=== PATIENT | male | born 1945 | race Caucasian/White ===

== ENCOUNTER 2019-07-28 06:40 | Day surgery (SDC) | payer OTHER ==
[2019-07-28] MEDS ORDERED: Sodium Chloride 0.9% 1,000 ML IV SCH (08:00)
[2019-07-28] MEDS ORDERED: fentaNYL 100 MCG/2 ML SDV ONE (08:09)
[2019-07-28] MEDS ORDERED: Midazolam 1 MG/ML 2 ML SDV ONE (08:10)
[2019-07-28] MEDS ORDERED: Propofol 200 MG/20 ML SDV ONE (08:21)
--- NOTE | 2019-07-28 10:11 | PN ---
DATE OF SERVICE: 07/28/2019 The patient was discussed the fact of his poor colon prep. He was recommended to have a repeat colonoscopy. We discussed risks, benefits, alternatives, and limitations of this. The idea is that the patient is not well cleaned out and would not have a repeat colonoscopy. He has declined this. We did again discuss the fact that we may miss colorectal cancer by not repeating the colonoscopy. The patient understands these risks and wishes to not have a repeat nor a barium enema. Robbie Fraser MD /[id number]
--- NOTE | 2019-07-31 11:45 | OR ---
DATE OF PROCEDURE: 07/28/2019 SURGEON: Robbie Fraser MD PROCEDURE: Colonoscopy. FINDINGS: 1. Very poor colon prep. 2. Ascending colon polyp, approximately 5 mm, completely removed using hot snare wire. 3. Ascending colon polyp #2, approximately 1 cm, completely removed using hot snare wire. COMPLICATIONS: None. SORT LINE WORKER: None. ANESTHESIA: MAC. RISKS: Risks, benefits, alternatives, and limitations including, but not limited to infection, bleeding, and perforation were explained to the patient, who wished to proceed. PREOPERATIVE DIAGNOSIS: Family history of colorectal cancer. POSTOPERATIVE DIAGNOSIS: Family history of colorectal cancer. PROCEDURE IN DETAIL: The patient was placed in left lateral decubitus position. Digital rectal exam was performed without abnormality. Scope was introduced and advanced atraumatically to the ileocecal valve. Scope was brought back through the ascending, transverse, descending colon, and retroflexed. The aforementioned polyps were identified and completely removed. No evidence of old or new blood. The colon prep itself would be described as very poor colon prep with large amount of retained solid and liquid stool, approximately 90% of the luminal surface could be seen, possibly less. No abnormalities on retroflexion. The patient tolerated the procedure well. Robbie Fraser MD /[id number]
== END 2019-07-28 10:08 | disposition home or self-care (01) ==
LOC: JP.SDS 06:40
PROVIDERS: ATTEND Surgery
DX: Z12.11 Encounter for screening for malignant neoplasm of colon (principal); D12.2 Benign neoplasm of ascending colon; E78.5 Hyperlipidemia, unspecified; I10 Essential (primary) hypertension; K21.9 Gastro-esophageal reflux disease without esophagitis; I25.10 Atherosclerotic heart disease of native coronary artery without angina pectoris; E11.9 Type 2 diabetes mellitus without complications; Z80.0 Family history of malignant neoplasm of digestive organs; Z88.5 Allergy status to narcotic agent
CPT/HCPCS: 45385; J2250; J2704; J3010; J7030; 88305

== ENCOUNTER 2020-01-16 16:54 | Emergency (ER) | payer OTHER ==
--- NOTE | 2020-01-16 18:59 | EDM.PDOC ---
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 He feels too unsteady to do things without his walker, this morning he was arranging a picture on the wall and lost his balance and fell over hitting his left shoulder and felt too weak to get up. His then called his doctor who told him to bring him to the emergency room. She was also concerned that she took his vitals this morning and his pulse was only 46, later in the afternoon it was 106. His blood pressure has been good, he has not been febrile. He has some slight increase in peripheral edema and shortness of breath but he is not in distress. No chest pain. Onset: Gradual Duration: Day(s): Location: Reports: Generalized (Symptoms for 5 days) Worsens with: Reports: Other (Activity), Movement Associated Symptoms: Reports: Malaise, Shortness of Breath, Weakness. Denies: Confusion, Chest Pain, Cough Left Shoulder Pain Score (Numeric/FACES): 5 - Related Data Allergies Allergy/AdvReac Type Severity Reaction Status Date / Time morphine Allergy Other Verified 01/16/20 17:54 Home Meds: Home Meds Apixaban [Eliquis] 5 mg PO BID 07/25/19 [History] Calcium Citrate/Vitamin D3 [Calcium Citrate - Vit D Caplet] 2 each PO DAILY 07/25/19 [History] Cetirizine [ZyrTEC] 10 mg PO DAILY 07/25/19 [History] Chlorthalidone 12.5 mg PO DAILY 07/25/19 [History] Cholecalciferol (Vitamin D3) [Vitamin D3] 2,000 unit PO DAILY 07/25/19 [History] Cyclobenzaprine HCl 10 mg PO BEDTIME 07/25/19 [History] Fluticasone Propionate [Flovent HFA] 1 spray INH DAILY PRN 07/25/19 [History] Furosemide [Lasix] 20 mg PO DAILY 07/25/19 [History] Gabapentin [Neurontin] 300 mg PO TID 07/25/19 [History] Insulin NPH/Insulin Reg,Human [Novolin 70-30] 40 units SQ QAM 07/25/19 [History] Insulin NPH/Insulin Reg,Human [Novolin 70-30] 74 units SQ QPM 07/25/19 [History] Latanoprost/Pf [Latanoprost 0.005% Eye Drop] 1 drop EYEBOTH DAILY 07/25/19 [History] Losartan [Cozaar] 100 mg PO DAILY 07/25/19 [History] Magnesium Oxide 420 mg PO BID 07/25/19 [History] Metoprolol Succinate [Toprol XL 50mg] 75 mg PO DAILY 07/25/19 [History] Nitroglycerin 0.4 mg SL ASDIRECTED PRN 07/25/19 [History] Omeprazole 40 mg PO DAILY 07/25/19 [History] Pseudoephedrine HCl 60 mg PO BID 07/25/19 [History] Sulfamethoxazole/Trimethoprim [Sulfamethoxazole-Tmp Ss Tablet] 1 each PO BID 07/25/19 [History] Triamcinolone Acetonide [Triamcinolone Acetonide 0.1% Crm] 1 applic TOP BID PRN 07/25/19 [History] amLODIPine Besylate [Amlodipine Besylate] 10 mg PO DAILY 07/25/19 [History] atorvaSTATin [Lipitor] 40 mg PO DAILY 07/25/19 [History] metFORMIN HCl [Fortamet] 1,000 mg PO BID 07/25/19 [History] terbinafine HCL [Athlete's Foot] 1 applic TOP BID PRN 07/25/19 [History] Acetaminophen [Tylenol Arthritis] 650 mg PO ASDIRECTED PRN 07/28/19 [History] Aspirin [Halfprin] 81 mg PO DAILY 07/28/19 [History] Fish Oil/Dorset-3 Fatty Acids [Fish Oil 1,000 MG] 2 each PO DAILY 07/28/19 [History] Multivitamin [Multi-Day Vitamins] 1 each PO DAILY 07/28/19 [History] Vitamin E 400 unit PO DAILY 07/28/19 [History] Past Medical History HEENT History: Reports: Sinusitis Cardiovascular History: Reports: High Cholesterol, Hypertension, [place] Gastrointestinal History: Reports: Colon Polyp Genitourinary History: Reports: Prostate Disorder Neurological History: Reports: Neuropathy, Diabetic Endocrine/Metabolic History: Reports: Diabetes, Type II - Infectious Disease History Infectious Disease History: Reports: Chicken Pox, Mumps - Past Surgical History HEENT Surgical History: Reports: Cataract Surgery Cardiovascular Surgical History: Reports: Coronary Artery Bypass GI Surgical History: Reports: Colonoscopy, Hernia Repair/Other Male Surgical History: Reports: Vasectomy Musculoskeletal Surgical History: Reports: Hip Replacement, Other (See Below) Other Musculoskeletal Surgeries/Procedures:: femur fracture bunionleft foot Social & Family History - Tobacco Use Smoking Status *Q: Never Smoker - Caffeine Use Caffeine Use: Reports: Soda - Recreational Drug Use Recreational Drug Use: No ED ROS GENERAL - Review of Systems Review Of Systems: See Below Constitutional: Reports: Malaise, Weakness. Denies: Fever, Chills HEENT: Denies: Vision Change Respiratory: Reports: Shortness of Breath (Especially with activity), Cough (Mild, intermittent). Denies: Hemoptysis Cardiovascular: Reports: Dyspnea on Exertion. Denies: Chest Pain, Palpitations Endocrine: Reports: Fatigue GI/Abdominal: Denies: Nausea, Vomiting : Reports: No Symptoms (3) Skin: Reports: Diaphoresis (Intermittent) Neurological: Reports: Dizziness, Numbness (Peripheral neuropathy is stable), Weakness. Denies: Headache Psychiatric: Reports: No Symptoms ED EXAM, GENERAL - Physical Exam Exam: See Below Exam Limited By: No Limitations General Appearance: Alert, No Apparent Distress Eye Exam: Bilateral Eye: Normal Inspection Head: Atraumatic Neck: Supple, Non-Tender Respiratory/Chest: No Respiratory Distress, Decreased Breath Sounds, Rales (Basilar rales bilaterally) Cardiovascular: No Murmur, Bradycardia, Irregularly Irregular GI/Abdominal: Soft, Non-Tender Extremities: Other (Significant pitting edema of the lower extremities, symmetric) Neurological: Alert, Oriented Psychiatric: Normal Affect, Normal Mood Skin Exam: Warm, Dry EKG INTERPRETATION Rhythm: A-Fib Rate (Beats/Min): 46 EKG Interpretation Comments: Patient has atrial fibrillation with slow ventricular response and frequent PVCs. Course - Vital Signs Last Recorded V/S: Last Vital Signs Temp 96.8 F L 01/16/20 18:04 Pulse 63 01/16/20 18:04 Resp 19 01/16/20 18:04 BP 153/72 H 01/16/20 18:04 Pulse Ox 96 01/16/20 18:04 - Orders/Labs/Meds Orders: Active Orders 24 hr Category Date Time Status Chest 1V Frontal [CR] Stat Exams 01/16/20 18:29 Taken EKG 12 Lead [EK] Routine Ther 01/16/20 18:30 Ordered Labs: Laboratory Tests 01/16/20 01/16/20 Range/Units 18:43 18:43 WBC 9.1 (4.5-11.0) K/uL RBC 4.54 (4.30-5.90) M/uL Hgb 11.8 L (12.0-15.0) g/dL Hct 37.7 L (40.0-54.0) % MCV 83 (80-98) fL MCH 26 L (27-31) pg MCHC 31 L (32-36) % Plt Count 293 (150-400) K/uL Neut % (Auto) 83 H (36-66) % Lymph % (Auto) 7 L (24-44) % Twiggs % (Auto) 9 H (2-6) % Eos % (Auto) 1 L (2-4) % Baso % (Auto) 0 (0-1) % Sodium 122 L (140-148) mmol/L Potassium 5.6 H (3.6-5.2) mmol/L Chloride 88 L (100-108) mmol/L Carbon Dioxide 26 (21-32) mmol/L Anion Gap 13.6 (5.0-14.0) mmol/L BUN 23 H (7-18) mg/dL Creatinine 1.4 H (0.8-1.3) mg/dL Est Cr Clr Drug Dosing 50.80 mL/min Estimated GFR (MDRD) 50 L (>60) Glucose 130 H (74-106) mg/dL Calcium 9.1 (8.5-10.1) mg/dL Total Bilirubin 0.6 (0.2-1.0) mg/dL AST 21 (15-37) U/L ALT 20 (12-78) U/L Alkaline Phosphatase 63 (46-116) U/L Troponin I < 0.017 (0.000-0.056) ng/mL Total Protein 6.8 (6.4-8.2) g/dL Albumin 3.6 (3.4-5.0) g/dL Globulin 3.2 (2.3-3.5) g/dL Albumin/Globulin Ratio 1.1 L (1.2-2.2) - Re-Assessments/Exams Free Text/Narrative Re-Assessment/Exam: 01/16/20 19:49 Troponin is 0, CBC is normal. Patient remained in atrial fibrillation with bradycardia. Chest x-ray showed cardiomegaly but no significant congestive heart failure. Sodium was low at 124, potassium mildly elevated at 5.6, glucose 130. The MD was contacted and are considering accepting him for cardiology evaluation and possible pacemaker placement. 01/16/20 20:06 Dr. Sharp kindly accepted the patient for transfer. The patient and his are adamant they wanted to go by private car, he has been stable for the last 4 days and think he will do fine. He is going to take his evening dose of Eliquis and magnesium. He will hold the metformin until he arrives in [place] and they can decide if they want to continue him on that today. Copies of his EKG and x- ray were given to the patient as well as his labs. Departure - Departure Time of Disposition: 20:22 Disposition: DC/Tfer to Other 70 Clinical Impression: Atrial fibrillation with slow ventricular response, Weakness - Discharge Information Referrals: Aleida Mark CUSTOMER ADVISOR [Primary Care Provider] - Forms: ED Department Discharge Care Plan Goals: Patient is going to go by private car to the [facility] while he will be admitted for atrial fibrillation with slow ventricular response, weakness and mild congestive heart failure. He likely will need evaluation for a pacemaker. Sepsis Event Note (ED) - Evaluation Sepsis Screening Result: No Definite Risk - Focused Exam Vital Signs: Vital Signs Temp Pulse Resp BP Pulse Ox 01/16/20 18:04 96.8 F L 63 19 153/72 H 96 01/16/20 17:39 96.8 F L 63 19 153/72 H 96 - My Orders Last 24 Hours: My Active Orders 01/16/20 18:29 Chest 1V Frontal [CR] Stat 01/16/20 18:30 EKG 12 Lead [EK] Routine - Assessment/Plan Last 24 Hours: My Active Orders 01/16/20 18:29 Chest 1V Frontal [CR] Stat 01/16/20 18:30 EKG 12 Lead [EK] Routine
--- NOTE | 2020-01-17 09:07 | CR ---
CHEST: Portable 01/16/2020 at 6:46 PM CLINICAL HISTORY:Dyspnea, weakness COMPARISON:None FINDINGS: Heart is moderately enlarged. Patient has had previous sternotomy. Pulmonary vascularity is cephalized. There is some interstitial edema. No effusions are seen. IMPRESSION: Moderate cardiomegaly Changes of CHF Previous sternotomy
== END 2020-01-16 20:25 | disposition other institution (70) ==
LOC: JP.ED 16:54
DX: I48.91 Unspecified atrial fibrillation (principal); R53.1 Weakness; I10 Essential (primary) hypertension; E78.00 Pure hypercholesterolemia, unspecified; I25.2 Old myocardial infarction; E11.40 Type 2 diabetes mellitus with diabetic neuropathy, unspecified; R60.0 Localized edema; Z95.1 Presence of aortocoronary bypass graft; Z88.5 Allergy status to narcotic agent; Z79.01 Long term (current) use of anticoagulants; Z79.4 Long term (current) use of insulin; Z79.899 Other long term (current) drug therapy; Z79.82 Long term (current) use of aspirin
CPT/HCPCS: 36415; 71045; 71045-26; 80053; 84484; 85025; 93005; 99285-25

== ENCOUNTER 2020-03-13 16:05 | Inpatient (IN) | payer OTHER ==
--- NOTE | 2020-03-13 17:20 | EDM.PDOC ---
ED HPI GENERAL MEDICAL PROBLEM - General Chief Complaint: Lower Extremity Injury/Pain Stated Complaint: RASH IN UPPER RT LEG/SWELLING Time Seen by Provider: 03/13/20 17:00 Source of Information: Reports: Patient, Family History Limitations: Reports: No Limitations - History of Present Illness INITIAL COMMENTS - FREE TEXT/NARRATIVE: 74-year-old male who was sent down for evaluation and likely admission for cellulitis of his right leg by the [facility] in [place]. He had a home health visit with the nurse today that trimmed his callus on his right foot, he is following an ulcer on the right toe but she said it is "healing nicely". He wears a compression sleeve on his left lower leg because of persistent edema and weeping blisters. His right leg however has formed painful erythema through the foot and up along the medial aspect of the go most of the groin. He has diffuse swelling around the knee, it is warm and painful to palpation. He does not however have a fever. Onset: Gradual Associated Symptoms: Reports: Malaise. Denies: Fever/Chills, Headaches, Shortness of Breath - Related Data Allergies Allergy/AdvReac Type Severity Reaction Status Date / Time morphine Allergy Other Verified 03/13/20 16:28 nylon AdvReac Itching Verified 03/13/20 16:29 Home Meds: Home Meds Apixaban [Eliquis] 5 mg PO BID 07/25/19 [History] Calcium Citrate/Vitamin D3 [Calcium Citrate - Vit D Caplet] 2 each PO DAILY 07/25/19 [History] Cetirizine [ZyrTEC] 10 mg PO DAILY 07/25/19 [History] Chlorthalidone 12.5 mg PO DAILY 07/25/19 [History] Cholecalciferol (Vitamin D3) [Vitamin D3] 2,000 unit PO DAILY 07/25/19 [History] Cyclobenzaprine HCl 10 mg PO BEDTIME 07/25/19 [History] Fluticasone Propionate [Flovent HFA] 1 spray INH DAILY PRN 07/25/19 [History] Furosemide [Lasix] 60 mg PO DAILY 07/25/19 [History] Gabapentin [Neurontin] 300 mg PO TID 07/25/19 [History] Insulin NPH/Insulin Reg,Human [Novolin 70-30] 5 units SQ ASDIRECTED PRN 07/25/19 [History] Latanoprost/Pf [Latanoprost 0.005% Eye Drop] 1 drop EYEBOTH DAILY 07/25/19 [History] Losartan [Cozaar] 100 mg PO DAILY 07/25/19 [History] Magnesium Oxide 420 mg PO BID 07/25/19 [History] Metoprolol Succinate [Toprol XL 50mg] 75 mg PO DAILY 07/25/19 [History] Nitroglycerin 0.4 mg SL ASDIRECTED PRN 07/25/19 [History] Omeprazole 40 mg PO DAILY 07/25/19 [History] Pseudoephedrine HCl 60 mg PO BID 07/25/19 [History] Triamcinolone Acetonide [Triamcinolone Acetonide 0.1% Crm] 1 applic TOP BID PRN 07/25/19 [History] amLODIPine Besylate [Amlodipine Besylate] 10 mg PO DAILY 07/25/19 [History] atorvaSTATin [Lipitor] 40 mg PO DAILY 07/25/19 [History] metFORMIN HCl [Fortamet] 1,000 mg PO BID 07/25/19 [History] terbinafine HCL [Athlete's Foot] 1 applic TOP BID PRN 07/25/19 [History] Acetaminophen [Tylenol Arthritis] 650 mg PO ASDIRECTED PRN 07/28/19 [History] Aspirin [Halfprin] 81 mg PO DAILY 07/28/19 [History] Fish Oil/[place]-3 Fatty Acids [Fish Oil 1,000 MG] 2 each PO DAILY 07/28/19 [History] Multivitamin [Multi-Day Vitamins] 1 each PO DAILY 07/28/19 [History] Vitamin E 400 unit PO DAILY 07/28/19 [History] Sulfamethoxazole/Trimethoprim [Bactrim 400-80 MG] 1 tab PO ASDIRECTED 03/13/20 [History] Past Medical History HEENT History: Reports: Sinusitis Cardiovascular History: Reports: High Cholesterol, Hypertension, [place] Respiratory History: Reports: Sleep Apnea Other Respiratory History: cpap Gastrointestinal History: Reports: Colon Polyp Genitourinary History: Reports: Prostate Disorder Neurological History: Reports: Neuropathy, Diabetic Psychiatric History: Reports: None Endocrine/Metabolic History: Reports: Diabetes, Type II, Obesity/BMI 30+ Hematologic History: Reports: Anticoagulation Therapy - Infectious Disease History Infectious Disease History: Reports: Mumps - Past Surgical History Head Surgeries/Procedures: Reports: None HEENT Surgical History: Reports: Cataract Surgery Cardiovascular Surgical History: Reports: Coronary Artery Bypass Respiratory Surgical History: Reports: None GI Surgical History: Reports: Colonoscopy, Hernia Repair/Other Male Surgical History: Reports: Vasectomy Endocrine Surgical History: Reports: None Neurological Surgical History: Reports: None Musculoskeletal Surgical History: Reports: Hip Replacement, Other (See Below) Other Musculoskeletal Surgeries/Procedures:: femur fracture bunionleft foot Dermatological Surgical History: Reports: None Social & Family History - Tobacco Use Tobacco Use Status *Q: Former Tobacco User Used Tobacco, but Quit: Yes Month/Year Tobacco Last Used: 1987 Second Hand Smoke Exposure: No - Caffeine Use Caffeine Use: Reports: Soda - Recreational Drug Use Recreational Drug Use: No Review of Systems - Review of Systems Review Of Systems: See Below Constitutional: Denies: Fever Respiratory: Denies: Shortness of Breath Cardiovascular: Denies: Chest Pain GI/Abdominal: Denies: Abdominal Pain Genitourinary: Reports: No Symptoms Musculoskeletal: Reports: Leg Pain (Bilateral, especially the right leg) Skin: Reports: Erythema, Other (Patient takes 10 days of Bactrim every several months for hidradenitis of the arms, he is in the fourth day) Neurological: Denies: Headache Psychiatric: Reports: No Symptoms ED EXAM, GENERAL - Physical Exam Exam: See Below Exam Limited By: No Limitations General Appearance: Alert, No Apparent Distress Eye Exam: Bilateral Eye: Normal Inspection Head: Atraumatic. No: Facial Swelling Neck: Non-Tender Respiratory/Chest: No Respiratory Distress, Lungs Clear Cardiovascular: Irregularly Irregular, Other (Heart sounds are distant, I hear no murmur) GI/Abdominal: Other (Abdomen is obese, nontender to palpation) Extremities: Other (Tense lower extremity edema bilaterally, somewhat worse on the right. He has leathery skin with erythema and tenderness to palpation along the medial aspect of the right thigh, through the knee and medial lower extremity into the foot. It is warm to touch.) Neurological: Alert, Oriented Psychiatric: Normal Affect, Normal Mood Course - Vital Signs Last Recorded V/S: Last Vital Signs Temp 97.1 F 03/14/20 07:16 Pulse 82 03/14/20 07:16 Resp 16 03/14/20 07:16 BP 137/96 H 03/14/20 07:16 Pulse Ox 99 03/14/20 07:16 - Orders/Labs/Meds Orders: Active Orders 24 hr Category Date Time Status VL Duplex Lwr Ext Veins Ltd Rt [US] Stat Exams 03/13/20 17:21 Taken CULTURE BLOOD [BC] Urgent Lab 03/13/20 17:04 Received CULTURE BLOOD [BC] Urgent Lab 03/13/20 17:12 Received Blood Culture x2 Reflex Set [OM.PC] Urgent Oth 03/13/20 16:58 Ordered Medication Orders Acetaminophen (Tylenol) 650 mg PO Q4H PRN PRN Reason: Pain (Mild 1-3)/fever Albuterol (Proventil Neb Soln) 2.5 mg NEB Q4H PRN PRN Reason: Shortness Of Breath/wheezing Apixaban (Eliquis) 5 mg PO BID [facility] Last Admin: 03/13/20 20:55 Dose: 5 mg Documented by: ANDREI Aspirin (Halfprin) 81 mg PO DAILY [facility] Bisacodyl (Dulcolax) 5 mg PO DAILY PRN PRN Reason: Constipation Cetirizine HCl (Zyrtec) 10 mg PO DAILY [facility] Chlorthalidone (Chlorthalidone) 12.5 mg PO DAILY [facility] Cyclobenzaprine HCl (Flexeril) 10 mg PO BEDTIME [facility] Last Admin: 03/13/20 20:55 Dose: 10 mg Documented by: ANDREI Docusate Sodium (Colace) 100 mg PO BID PRN PRN Reason: Constipation Furosemide 40 mg/ Furosemide (20 mg) 60 mg PO DAILY [facility] Gabapentin (Neurontin) 300 mg PO TID [facility] Last Admin: 03/13/20 20:55 Dose: 300 mg Documented by: ANDREI Sodium Chloride (Normal Saline) 1,000 mls @ 75 mls/hr IV ASDIRECTED [facility] Last Admin: 03/14/20 02:37 Dose: 75 mls/hr Documented by: FOSTER Piperacillin Sod/Tazobactam (Sod 3.375 gm/ Sodium Chloride) 50 mls @ 100 mls/hr IV Q6H [facility] Last Admin: 03/14/20 05:23 Dose: 100 mls/hr Documented by: Admin: 03/14/20 00:33 Dose: 100 mls/hr Documented by: CRYSTAL Insulin Human Isoph/Insulin Regular (Humulin 70-30) 5 units SUBCUT ACBREAKFAST PRN PRN Reason: Blood Glucose GREATER THAN 200 Insulin Human Lispro (Humalog) 0 unit SUBCUT QIDACANDBED [facility]; Protocol Last Admin: 03/13/20 21:17 Dose: 1 unit Documented by: ANDREI Cosigned by: МАРИНА Lorazepam (Ativan) 1 mg IV Q6H PRN PRN Reason: Nausea/Vomiting Magnesium Oxide (Magnesium Oxide) 400 mg PO BID [facility] Last Admin: 03/13/20 21:16 Dose: 400 mg Documented by: ANDREI Melatonin (Melatonin) 9 mg PO BEDTIME PRN PRN Reason: Insomnia Last Admin: 03/14/20 00:43 Dose: 9 mg Documented by: CRYSTAL Metoprolol Succinate 50 mg/ (Metoprolol Succinate 25 mg) 75 mg PO DAILY [facility] Nitroglycerin (Nitrostat) 0.4 mg SL ASDIRECTED PRN PRN Reason: Chest Pain Non-Formulary Medication (Acetaminophen [Tylenol Arthritis]) 650 mg PO ASDIRECTED PRN PRN Reason: Pain Non-Formulary Medication (Amlodipine Besylate [Amlodipine Besylate]) 10 mg PO DAILY [facility] Non-Formulary Medication (Atorvastatin [Lipitor]) 40 mg PO DAILY [facility] Non-Formulary Medication (Fluticasone Propionate [Flovent Hfa]) 1 spray INH DAILY PRN PRN Reason: Allergies Non-Formulary Medication (Latanoprost/Pf [Latanoprost 0.005% Eye Drop]) 1 drop EYEBOTH DAILY [facility] Non-Formulary Medication (Losartan [Cozaar]) 100 mg PO DAILY [facility] Non-Formulary Medication (Omeprazole [Omeprazole]) 40 mg PO DAILY [facility] Non-Formulary Medication (Terbinafine Hcl [Athlete's Foot]) 1 applic TOP BID PRN PRN Reason: .infection Ondansetron HCl (Zofran Odt) 4 mg PO Q6H PRN PRN Reason: Nausea able to take PO Oxycodone HCl (Oxycodone) 10 mg PO Q4H PRN PRN Reason: Pain (moderate 4-6) Temazepam (Restoril) 15 mg PO BEDTIME PRN PRN Reason: Sleep Last Admin: 03/13/20 20:55 Dose: 15 mg Documented by: ANDREI Triamcinolone Acetonide (Triamcinolone Acetonide 0.1% Crm) 0 gm TOP BID PRN PRN Reason: Rash Vancomycin HCl (Vancomycin) 1 gm IV .PHARMACY TO DOSE [facility] Labs: Laboratory Tests 03/13/20 03/13/20 Range/Units 17:04 17:04 WBC 7.6 (4.5-11.0) K/uL RBC 4.40 (4.30-5.90) M/uL Hgb 10.8 L (12.0-15.0) g/dL Hct 34.9 L (40.0-54.0) % MCV 79 L (80-98) fL MCH 25 L (27-31) pg MCHC 31 L (32-36) % Plt Count 219 (150-400) K/uL Neut % (Auto) 80 H (36-66) % Lymph % (Auto) 9 L (24-44) % [place] % (Auto) 10 H (2-6) % Eos % (Auto) 1 L (2-4) % Baso % (Auto) 0 (0-1) % Sodium 135 L (140-148) mmol/L Potassium 4.6 (3.6-5.2) mmol/L Chloride 101 (100-108) mmol/L Carbon Dioxide 26 (21-32) mmol/L Anion Gap 12.6 (5.0-14.0) mmol/L BUN 32 H (7-18) mg/dL Creatinine 1.1 (0.8-1.3) mg/dL Est Cr Clr Drug Dosing 64.65 mL/min Estimated GFR (MDRD) > 60 (>60) Glucose 192 H (74-106) mg/dL Calcium 8.5 (8.5-10.1) mg/dL Total Bilirubin 0.3 (0.2-1.0) mg/dL AST 32 (15-37) U/L ALT 53 D (12-78) U/L Alkaline Phosphatase 73 (46-116) U/L C-Reactive Protein 7.19 H (0.0-0.3) mg/dL Total Protein 5.7 L (6.4-8.2) g/dL Albumin 2.7 L (3.4-5.0) g/dL Globulin 3.0 (2.3-3.5) g/dL Albumin/Globulin Ratio 0.9 L (1.2-2.2) Meds: Medications Generic Name Dose Route Start Last Admin Trade Name Freq PRN Reason Stop Dose Admin Acetaminophen 650 mg 03/13/20 20:00 Tylenol PO Q4H PRN Pain (Mild 1-3)/fever Albuterol 2.5 mg 03/13/20 20:00 Proventil Neb Soln NEB Q4H PRN Shortness Of Breath/wheezing Apixaban 5 mg 03/13/20 21:00 03/13/20 20:55 Eliquis PO 5 mg BID [facility] Administration Aspirin 81 mg 03/14/20 09:00 Halfprin PO DAILY [facility] Bisacodyl 5 mg 03/13/20 20:00 Dulcolax PO DAILY PRN Constipation Cetirizine HCl 10 mg 03/14/20 09:00 Zyrtec PO DAILY [facility] Chlorthalidone 12.5 mg 03/14/20 09:00 Chlorthalidone PO DAILY [facility] Cyclobenzaprine HCl 10 mg 03/13/20 21:00 03/13/20 20:55 Flexeril PO 10 mg BEDTIME [facility] Administration Docusate Sodium 100 mg 03/13/20 20:00 Colace PO BID PRN Constipation Furosemide 40 mg/ Furosemide 60 mg 03/14/20 09:00 20 mg PO DAILY [facility] Gabapentin 300 mg 03/13/20 21:00 03/13/20 20:55 Neurontin PO 300 mg TID [facility] Administration Sodium Chloride 1,000 mls @ 75 mls/hr 03/13/20 20:00 03/14/20 02:37 Normal Saline IV 75 mls/hr ASDIRECTED [facility] Administration Piperacillin Sod/Tazobactam 50 mls @ 100 mls/hr 03/14/20 00:10 03/14/20 05:23 Sod 3.375 gm/ Sodium Chloride IV 100 mls/hr Q6H [facility] Administration Insulin Human Isoph/Insulin Regular 5 units 03/14/20 07:30 Humulin 70-30 SUBCUT ACBREAKFAST PRN Blood Glucose GREATER THAN 200 Insulin Human Lispro 0 unit 03/13/20 20:00 03/13/20 21:17 Humalog SUBCUT 1 unit QIDACANDBED [facility] Administration Protocol Lorazepam 1 mg 03/13/20 20:00 Ativan IV Q6H PRN Nausea/Vomiting Magnesium Oxide 400 mg 03/13/20 21:15 03/13/20 21:16 Magnesium Oxide PO 400 mg BID [facility] Administration Melatonin 9 mg 03/13/20 20:00 03/14/20 00:43 Melatonin PO 9 mg BEDTIME PRN Administration Insomnia Metoprolol Succinate 50 mg/ 75 mg 03/14/20 09:00 Metoprolol Succinate 25 mg PO DAILY [facility] Nitroglycerin 0.4 mg 03/13/20 20:00 Nitrostat SL ASDIRECTED PRN Chest Pain Non-Formulary Medication 650 mg 03/13/20 20:00 Acetaminophen [Tylenol Arthritis] PO ASDIRECTED PRN Pain Non-Formulary Medication 10 mg 03/14/20 09:00 Amlodipine Besylate [Amlodipine Besylate] PO DAILY [facility] Non-Formulary Medication 40 mg 03/14/20 09:00 Atorvastatin [Lipitor] PO DAILY [facility] Non-Formulary Medication 1 spray 03/13/20 20:00 Fluticasone Propionate [Flovent Hfa] INH DAILY PRN Allergies Non-Formulary Medication 1 drop 03/14/20 09:00 Latanoprost/Pf [Latanoprost 0.005% Eye Drop] EYEBOTH DAILY [facility] Non-Formulary Medication 100 mg 03/14/20 09:00 Losartan [Cozaar] PO DAILY [facility] Non-Formulary Medication 40 mg 03/14/20 09:00 Omeprazole [Omeprazole] PO DAILY [facility] Non-Formulary Medication 1 applic 03/13/20 20:00 Terbinafine Hcl [Athlete's Foot] TOP BID PRN .infection Ondansetron HCl 4 mg 03/13/20 20:00 Zofran Odt PO Q6H PRN Nausea able to take PO Oxycodone HCl 10 mg 03/13/20 20:00 Oxycodone PO Q4H PRN Pain (moderate 4-6) Temazepam 15 mg 03/13/20 20:00 03/13/20 20:55 Restoril PO 15 mg BEDTIME PRN Administration Sleep Triamcinolone Acetonide 0 gm 03/13/20 20:00 Triamcinolone Acetonide 0.1% Crm TOP BID PRN Rash Vancomycin HCl 1 gm 03/14/20 07:00 Vancomycin IV .PHARMACY TO DOSE [facility] Discontinued Medications Generic Name Dose Route Start Last Admin Trade Name Freq PRN Reason Stop Dose Admin Vancomycin HCl 1 gm/ Sodium 250 mls @ 150 mls/hr 03/13/20 17:20 03/13/20 17:51 Chloride IV 03/13/20 18:59 150 mls/hr ONETIME ONE Administration Piperacillin Sod/Tazobactam 50 mls @ 100 mls/hr 03/13/20 17:30 03/13/20 17:49 Sod 3.375 gm/ Sodium Chloride IV 100 mls/hr ONETIME [facility] Administration Magnesium Oxide 400 mg 03/13/20 21:15 Magnesium Oxide PO BID [facility] Non-Formulary Medication 420 mg 03/13/20 21:00 03/13/20 22:34 Magnesium Oxide [Magnesium Oxide] PO Not Given BID [facility] - Re-Assessments/Exams Free Text/Narrative Re-Assessment/Exam: 03/13/20 17:46 An IV was started, CBC CMP blood cultures and CRP were obtained as well as phone consultation with Dr. Ge of the hospitalist service. After blood cultures were drawn, Zosyn and vancomycin were ordered IV and an ultrasound of the leg ordered to rule out DVT. DVT study was negative, white count was normal. Patient was admitted for significant right leg cellulitis. Departure - Departure Time of Disposition: 18:38 Disposition: Admitted As Inpatient 68 Clinical Impression: Cellulitis of leg, right, Bilateral lower extremity edema Atrial fibrillation Qualifiers: Atrial fibrillation type: longstanding persistent Qualified Code(s): I48.11 - Longstanding persistent atrial fibrillation - Discharge Information Sepsis Event Note (ED) - Evaluation Sepsis Screening Result: No Definite Risk - Focused Exam Vital Signs: Vital Signs Pulse BP Pulse Ox 03/13/20 19:25 53 L 135/77 95 - My Orders Last 24 Hours: My Active Orders 03/13/20 16:58 Blood Culture x2 Reflex Set [OM.PC] Urgent 03/13/20 17:04 CULTURE BLOOD [BC] Urgent 03/13/20 17:12 CULTURE BLOOD [BC] Urgent 03/13/20 17:21 VL Duplex Lwr Ext Veins Ltd Rt [US] Stat - Assessment/Plan Last 24 Hours: My Active Orders 03/13/20 16:58 Blood Culture x2 Reflex Set [OM.PC] Urgent 03/13/20 17:04 CULTURE BLOOD [BC] Urgent 03/13/20 17:12 CULTURE BLOOD [BC] Urgent 03/13/20 17:21 VL Duplex Lwr Ext Veins Ltd Rt [US] Stat
[2020-03-13] MEDS ORDERED: Piperacillin/Tazobactam 3.375 GM in Sodium Chloride 0.9% 50 ML IV SCH (17:30)
[2020-03-13] MEDS ORDERED: Sodium Chloride 0.9% 1,000 ML IV SCH (20:00)
[2020-03-13] MEDS ORDERED: Non-Formulary Medication 1 Each (Acetaminophen [Tylenol Arthritis] 650 MG) PO PRN (20:00)
[2020-03-13] MEDS ORDERED: Nitroglycerin 0.4 MG Tab.SL SL PRN (20:00)
[2020-03-13] MEDS ORDERED: TERBINAFINE HCL TOP PRN (20:00)
[2020-03-13] MEDS ORDERED: Temazepam 15 MG Cap PO PRN (20:00)
[2020-03-13] MEDS ORDERED: Ondansetron 4 MG Tab.DIS PO PRN (20:00)
[2020-03-13] MEDS ORDERED: Triamcinolone Acetonide 0.1% Crm 15 GM Tube TOP PRN (20:00)
[2020-03-13] MEDS ORDERED: oxyCODONE 5 MG Tab PO PRN (20:00)
[2020-03-13] MEDS ORDERED: Bisacodyl 5 MG Tab PO PRN (20:00)
[2020-03-13] MEDS ORDERED: Docusate Sodium 100 MG Cap PO PRN (20:00)
[2020-03-13] MEDS ORDERED: LORazepam 2 MG/ML SDV IV PRN (20:00)
[2020-03-13] MEDS ORDERED: FLUTICASONE PROPIONATE INH PRN (20:00)
[2020-03-13] MEDS: Gabapentin 300 MG Cap PO SCH (20:55)
[2020-03-13] MEDS: Apixaban 5 MG Tab PO SCH (20:55)
[2020-03-13] MEDS: Cyclobenzaprine 10 MG Tab PO SCH (20:55)
[2020-03-13] MEDS ORDERED: Non-Formulary Medication 1 Each (Magnesium Oxide [Magnesium Oxide] 420 MG) PO SCH (21:00)
[2020-03-13] MEDS ORDERED: Magnesium Oxide 400 MG Tab PO SCH (21:15)
[2020-03-13] MEDS: Magnesium Oxide 400 MG Tab PO SCH (21:16)
[2020-03-13] MEDS: Insulin Lispro 100 Unit/ML 3 ML KwikPen SUBCUT SCH (21:17)
--- NOTE | 2020-03-13 22:16 | PCM.HP.2 ---
H&P History of Present Illness - General Date of Service: 03/13/20 Admit Problem/Dx: Admission Diagnosis/Problem Admission Diagnosis/Problem Cellulitis and abscess of leg Source of Information: Patient, Family () History Limitations: Reports: No Limitations - History of Present Illness Initial Comments - Free Text/Narative: chief complaint: leg infection- getting worse 74-year-old male who was sent down for evaluation and likely admission for cellulitis of his right leg by the [facility] in [place]. He had a home health visit with the nurse today that trimmed his callus on his right foot, he is following an ulcer on the right toe but she said it is "healing nicely". He wears a compression sleeve on his left lower leg because of persistent edema and weeping blisters. His right leg however has formed painful erythema through the foot and up along the medial aspect of the go most of the groin. He has diffuse swelling around the knee, it is warm and painful to palpation. He does not however have a fever. Onset: Gradual Associated Symptoms: Reports: Malaise. Denies: Fever/Chills, Headaches, Shortness of Breath Onset of Symptoms: Reports: Gradual Symptom Onset Date: 03/09/20 Duration of Symptoms: Reports: Getting Worse Location: Reports: Lower Extremity, Right Quality: Reports: Ache, Pressure, Throbbing Severity: Severe Improves with: Reports: None Worsens with: Reports: None Associated Symptoms: Reports: Fever/Chills, Weakness - Related Data Allergies/Adverse Reactions: Allergies Allergy/AdvReac Type Severity Reaction Status Date / Time morphine Allergy Other Verified 03/13/20 16:28 nylon AdvReac Itching Verified 03/13/20 16:29 Home Medications: Home Meds Apixaban [Eliquis] 5 mg PO BID 07/25/19 [History] Calcium Citrate/Vitamin D3 [Calcium Citrate - Vit D Caplet] 2 each PO DAILY 07/25/19 [History] Cetirizine [ZyrTEC] 10 mg PO DAILY 07/25/19 [History] Chlorthalidone 12.5 mg PO DAILY 07/25/19 [History] Cholecalciferol (Vitamin D3) [Vitamin D3] 2,000 unit PO DAILY 07/25/19 [History] Cyclobenzaprine HCl 10 mg PO BEDTIME 07/25/19 [History] Fluticasone Propionate [Flovent HFA] 1 spray INH DAILY PRN 07/25/19 [History] Furosemide [Lasix] 60 mg PO DAILY 07/25/19 [History] Gabapentin [Neurontin] 300 mg PO TID 07/25/19 [History] Insulin NPH/Insulin Reg,Human [Novolin 70-30] 5 units SQ ASDIRECTED PRN 07/25/19 [History] Latanoprost/Pf [Latanoprost 0.005% Eye Drop] 1 drop EYEBOTH DAILY 07/25/19 [History] Losartan [Cozaar] 100 mg PO DAILY 07/25/19 [History] Magnesium Oxide 420 mg PO BID 07/25/19 [History] Metoprolol Succinate [Toprol XL 50mg] 75 mg PO DAILY 07/25/19 [History] Nitroglycerin 0.4 mg SL ASDIRECTED PRN 07/25/19 [History] Omeprazole 40 mg PO DAILY 07/25/19 [History] Pseudoephedrine HCl 60 mg PO BID 07/25/19 [History] Triamcinolone Acetonide [Triamcinolone Acetonide 0.1% Crm] 1 applic TOP BID PRN 07/25/19 [History] amLODIPine Besylate [Amlodipine Besylate] 10 mg PO DAILY 07/25/19 [History] atorvaSTATin [Lipitor] 40 mg PO DAILY 07/25/19 [History] metFORMIN HCl [Fortamet] 1,000 mg PO BID 07/25/19 [History] terbinafine HCL [Athlete's Foot] 1 applic TOP BID PRN 07/25/19 [History] Acetaminophen [Tylenol Arthritis] 650 mg PO ASDIRECTED PRN 07/28/19 [History] Aspirin [Halfprin] 81 mg PO DAILY 07/28/19 [History] Fish Oil/[place]-3 Fatty Acids [Fish Oil 1,000 MG] 2 each PO DAILY 07/28/19 [History] Multivitamin [Multi-Day Vitamins] 1 each PO DAILY 07/28/19 [History] Vitamin E 400 unit PO DAILY 07/28/19 [History] Sulfamethoxazole/Trimethoprim [Bactrim 400-80 MG] 1 tab PO ASDIRECTED 03/13/20 [History] Past Medical History HEENT History: Reports: Sinusitis Cardiovascular History: Reports: High Cholesterol, Hypertension, [place] Respiratory History: Reports: Sleep Apnea Other Respiratory History: cpap Gastrointestinal History: Reports: Colon Polyp Genitourinary History: Reports: Prostate Disorder Neurological History: Reports: Neuropathy, Diabetic Psychiatric History: Reports: None Endocrine/Metabolic History: Reports: Diabetes, Type II, Obesity/BMI 30+ Hematologic History: Reports: Anticoagulation Therapy - Infectious Disease History Infectious Disease History: Reports: Mumps - Past Surgical History Head Surgeries/Procedures: Reports: None HEENT Surgical History: Reports: Cataract Surgery Cardiovascular Surgical History: Reports: Coronary Artery Bypass Respiratory Surgical History: Reports: None GI Surgical History: Reports: Colonoscopy, Hernia Repair/Other Male Surgical History: Reports: Vasectomy Endocrine Surgical History: Reports: None Neurological Surgical History: Reports: None Musculoskeletal Surgical History: Reports: Hip Replacement, Other (See Below) Other Musculoskeletal Surgeries/Procedures:: femur fracture bunionleft foot Dermatological Surgical History: Reports: None Social & Family History - Family History Family Medical History: Noncontributory - Tobacco Use Tobacco Use Status *Q: Never Tobacco User Used Tobacco, but Quit: Yes Month/Year Tobacco Last Used: 1987 Second Hand Smoke Exposure: No - Caffeine Use Caffeine Use: Reports: Soda - Recreational Drug Use Recreational Drug Use: No - Living Situation & Occupation Living situation: Reports: Occupation: Disabled (lives with [place] [address] [place] of [place], [place].) H&P Review of Systems - Review of Systems: Review Of Systems: See Below General: Reports: Weakness, Fatigue, Other (right lower leg pain) HEENT: Reports: Rhinitis (chronic sinusitis and allergies), Post Nasal Drip, Sinus Congestion (chronic sinus congestion) Pulmonary: Reports: No Symptoms Cardiovascular: Reports: Edema (bilateral lower leg) Gastrointestinal: Reports: No Symptoms Genitourinary: Reports: No Symptoms Musculoskeletal: Reports: Leg Pain, Joint Swelling (right knee with chronic edema- Mr. Boucher reports "swollen for years") Skin: Reports: Erythema (right lower leg), Wound (left lower leg), Change in Color (right leg- redness, pain and edema) Psychiatric: Reports: No Symptoms Neurological: Reports: No Symptoms Hematologic/Lymphatic: Reports: Other (Eiliquist bid) Immunologic: Reports: Seasonal Allergy Exam - Exam Exam: See Below - Vital Signs Vital Signs: Last Vital Signs Temp 37.0 C 03/13/20 20:20 Pulse 94 03/13/20 20:20 Resp 18 03/13/20 20:20 BP 133/77 03/13/20 20:20 Pulse Ox 94 L 03/13/20 20:20 Weight: 110.903 kg - Exam Quality Assessment: DVT Prophylaxis, Skin Breakdown General: Alert, Oriented, 4 HEENT: PERRLA, Hearing Intact, Mucosa Moist & [place], Nares Patent, Normal Nasal Septum, Posterior Pharynx Clear, Conjunctiva Clear, EOMI, EACs Clear, TMs Clear Neck: Supple, Trachea Midline, 2 Lungs: Clear to Auscultation, Normal Respiratory Effort Cardiovascular: Regular Rate, Regular Rhythm, Normal S1, Normal S2 GI/Abdominal Exam: Normal Bowel Sounds, Soft, Non-Tender, No Organomegaly, No Distention, No Abnormal Bruit, No Mass, Pelvis Stable (Male) Exam: Deferred Rectal (Males) Exam: Deferred Back Exam: Normal Inspection Extremities: Pedal Edema, Slow Capillary Refill, Joint Swelling (right knee with chronic edema ), Leg Pain, Limited Range of Motion (right leg with edema of knee and difficulty with weight bearing.), Increased Warmth (right leg from thigh to foot is red, warm to touch and painful.), Redness (bilateral legs) Peripheral Pulses: 2+: Radial (L), Radial (R) Skin: Warm (right leg from thigh to toes with redness, pain and edema), Wound (left anterior lower leg) Neurological: Normal Speech, Normal Tone Neuro Extensive - Mental Status: Alert, Oriented x3, Normal Mood/Affect Neuro Extensive - Motor, Sensory, Reflexes: Motor/Sensory Deficits Psychiatric: Alert, Normal Affect, Normal Mood - Patient Data Lab Results Last 24 hrs: Laboratory Results - last 24 hr 03/13/20 03/13/20 03/13/20 Range/Units 17:04 17:04 21:00 WBC 7.6 (4.5-11.0) K/uL RBC 4.40 (4.30-5.90) M/uL Hgb 10.8 L (12.0-15.0) g/dL Hct 34.9 L (40.0-54.0) % MCV 79 L (80-98) fL MCH 25 L (27-31) pg MCHC 31 L (32-36) % Plt Count 219 (150-400) K/uL Neut % (Auto) 80 H (36-66) % Lymph % (Auto) 9 L (24-44) % [place] % (Auto) 10 H (2-6) % Eos % (Auto) 1 L (2-4) % Baso % (Auto) 0 (0-1) % Sodium 135 L (140-148) mmol/L Potassium 4.6 (3.6-5.2) mmol/L Chloride 101 (100-108) mmol/L Carbon Dioxide 26 (21-32) mmol/L Anion Gap 12.6 (5.0-14.0) mmol/L BUN 32 H (7-18) mg/dL Creatinine 1.1 (0.8-1.3) mg/dL Est Cr Clr Drug Dosing 64.65 mL/min Estimated GFR (MDRD) > 60 (>60) Glucose 192 H (74-106) mg/dL POC Glucose 182 H (74-106) MG/DL Calcium 8.5 (8.5-10.1) mg/dL Total Bilirubin 0.3 (0.2-1.0) mg/dL AST 32 (15-37) U/L ALT 53 D (12-78) U/L Alkaline Phosphatase 73 (46-116) U/L C-Reactive Protein 7.19 H (0.0-0.3) mg/dL Total Protein 5.7 L (6.4-8.2) g/dL Albumin 2.7 L (3.4-5.0) g/dL Globulin 3.0 (2.3-3.5) g/dL Albumin/Globulin Ratio 0.9 L (1.2-2.2) Result Diagrams: 03/13/20 17:04 03/13/20 17:04 Sepsis Event Note - Evaluation Sepsis Screening Result: No Definite Risk - Focused Exam Vital Signs: Vital Signs Temp Pulse Resp BP Pulse Ox 03/13/20 20:20 37.0 C 94 18 133/77 94 L 03/13/20 19:25 53 L 135/77 95 03/13/20 18:40 73 117/52 L 97 03/13/20 17:41 72 124/78 95 03/13/20 17:02 77 176/93 H 94 L 03/13/20 16:41 36.8 C 56 L 16 151/75 H 96 03/13/20 16:26 36.8 C 56 L 16 151/75 H 96 - Problem List (1) Cellulitis and abscess of leg SNOMED Code(s): 724722410 ICD Code: L03.119 - CELLULITIS OF UNSPECIFIED PART OF LIMB; L02.419 - CUTANEOUS ABSCESS OF LIMB, UNSPECIFIED Status: Acute Priority: High Current Visit: Yes (2) Diabetes mellitus type 2 with complications SNOMED Code(s): 67536908, 908892760 ICD Code: E11.8 - TYPE 2 DIABETES MELLITUS WITH UNSPECIFIED COMPLICATIONS Status: Acute Priority: Medium Current Visit: Yes (3) Atrial fibrillation with slow ventricular response SNOMED Code(s): 42676782, 382348091 ICD Code: I48.91 - UNSPECIFIED ATRIAL FIBRILLATION Status: Acute Priority: Medium Current Visit: No Problem List Initiated/Reviewed/Updated: Yes Orders Last 24hrs: Active Orders 24 hr Category Date Time Status Cardiac Monitoring [RC] .As Directed Care 03/13/20 20:00 Active Diabetes Education [RC] Click to Edit Care 03/13/20 20:00 Active Notify Provider Consults [RC] ASDIRECTED Care 03/13/20 20:00 Active Notify Provider Vital Signs [RC] ASDIRECTED Care 03/13/20 20:00 Active Notify Provider [RC] PRN Care 03/13/20 20:00 Active Oxygen Therapy [RC] PRN Care 03/13/20 20:00 Active Pulse Oximetry [RC] PRN Care 03/13/20 20:00 Active RT Aerosol Therapy [RC] ASDIRECTED Care 03/13/20 20:00 Active Up With Assistance [RC] ASDIRECTED Care 03/13/20 20:00 Active Vital Signs [RC] Q4H Care 03/13/20 20:00 Active Consult to Physician [CONS] Routine Cons 03/13/20 20:00 Ordered PT Evaluation and Treatment [CONS] Routine Cons 03/13/20 20:00 Active Consistent Carbohydrate Diet [DIET] Diet 03/13/20 Dinner Active Chest 1V Frontal [CR] AM Exams 03/14/20 05:11 Ordered VL Duplex Lwr Ext Veins Ltd Rt [US] Stat Exams 03/13/20 17:21 Taken BASIC METABOLIC PANEL,BMP [CHEM] AM Lab 03/14/20 05:11 Ordered CBC WITH AUTO DIFF [HEME] AM Lab 03/14/20 05:11 Ordered CULTURE BLOOD [BC] Urgent Lab 03/13/20 17:04 Received CULTURE BLOOD [BC] Urgent Lab 03/13/20 17:12 Received GLUCOSE POC LAB TO COLLECT JPM [POC] QIDACANDBED Lab 03/14/20 07:30 Ordered GLUCOSE POC LAB TO COLLECT JPM [POC] QIDACANDBED Lab 03/14/20 11:30 Ordered GLUCOSE POC LAB TO COLLECT JPM [POC] QIDACANDBED Lab 03/14/20 16:30 Ordered GLUCOSE POC LAB TO COLLECT JPM [POC] QIDACANDBED Lab 03/14/20 21:00 Ordered GLUCOSE POC LAB TO COLLECT JPM [POC] QIDACANDBED Lab 03/15/20 07:30 Ordered GLUCOSE POC LAB TO COLLECT JPM [POC] QIDACANDBED Lab 03/15/20 11:30 Ordered GLUCOSE POC LAB TO COLLECT JPM [POC] QIDACANDBED Lab 03/15/20 16:30 Ordered GLUCOSE POC LAB TO COLLECT JPM [POC] QIDACANDBED Lab 03/15/20 21:00 Ordered GLUCOSE POC LAB TO COLLECT JPM [POC] QIDACANDBED Lab 03/16/20 07:30 Ordered GLUCOSE POC LAB TO COLLECT JPM [POC] QIDACANDBED Lab 03/16/20 11:30 Ordered GLUCOSE POC LAB TO COLLECT JPM [POC] QIDACANDBED Lab 03/16/20 16:30 Ordered GLUCOSE POC LAB TO COLLECT JPM [POC] QIDACANDBED Lab 03/16/20 21:00 Ordered GLUCOSE POC LAB TO COLLECT JPM [POC] QIDACANDBED Lab 03/17/20 07:30 Ordered GLUCOSE POC LAB TO COLLECT JPM [POC] QIDACANDBED Lab 03/17/20 11:30 Ordered GLUCOSE POC LAB TO COLLECT JPM [POC] QIDACANDBED Lab 03/17/20 16:30 Ordered GLUCOSE POC LAB TO COLLECT JPM [POC] QIDACANDBED Lab 03/17/20 21:00 Ordered GLUCOSE POC LAB TO COLLECT JPM [POC] QIDACANDBED Lab 03/18/20 07:30 Ordered GLUCOSE POC LAB TO COLLECT JPM [POC] QIDACANDBED Lab 03/18/20 11:30 Ordered GLUCOSE POC LAB TO COLLECT JPM [POC] QIDACANDBED Lab 03/18/20 16:30 Ordered GLUCOSE POC LAB TO COLLECT JPM [POC] QIDACANDBED Lab 03/18/20 21:00 Ordered GLUCOSE POC LAB TO COLLECT JPM [POC] QIDACANDBED Lab 03/19/20 07:30 Ordered GLUCOSE POC LAB TO COLLECT JPM [POC] QIDACANDBED Lab 03/19/20 11:30 Ordered GLUCOSE POC LAB TO COLLECT JPM [POC] QIDACANDBED Lab 03/19/20 16:30 Ordered GLUCOSE POC LAB TO COLLECT JPM [POC] QIDACANDBED Lab 03/19/20 21:00 Ordered INR,PT,PROTHROMBIN TIME [COAG] AM Lab 03/14/20 05:11 Ordered Acetaminophen [TylenoL] Med 03/13/20 20:00 Active 650 mg PO Q4H PRN Acetaminophen [Tylenol Arthritis] Med 03/13/20 20:00 Active 650 mg PO ASDIRECTED PRN Albuterol [Proventil Neb Soln] Med 03/13/20 20:00 Active 2.5 mg NEB Q4H PRN Apixaban [Eliquis] Med 03/13/20 21:00 Active 5 mg PO BID Aspirin [Halfprin] Med 03/14/20 09:00 Active 81 mg PO DAILY Cetirizine [ZyrTEC] Med 03/14/20 09:00 Active 10 mg PO DAILY Chlorthalidone Med 03/14/20 09:00 Active 12.5 mg PO DAILY Cyclobenzaprine [Flexeril] Med 03/13/20 21:00 Active 10 mg PO BEDTIME Docusate Sodium [Colace] Med 03/13/20 20:00 Active 100 mg PO BID PRN Fluticasone Propionate [Flovent HFA] Med 03/13/20 20:00 Active 1 spray INH DAILY PRN Furosemide [Lasix] Med 03/14/20 09:00 Active 60 mg PO DAILY Gabapentin [Neurontin] Med 03/13/20 21:00 Active 300 mg PO TID Insulin Lispro [HumaLOG] Med 03/13/20 20:00 Active See Protocol SUBCUT QIDACANDBED Insulin NPH/Insulin Reg,Human [HumuLIN 70-30] Med 03/14/20 07:30 Active 5 units SUBCUT ACBREAKFAST PRN LORazepam [Ativan] Med 03/13/20 20:00 Active 1 mg IV Q6H PRN Latanoprost/Pf [Latanoprost 0.005% Eye Drop] Med 03/14/20 09:00 Active 1 drop EYEBOTH DAILY Losartan [Cozaar] Med 03/14/20 09:00 Active 100 mg PO DAILY Magnesium Oxide Med 03/13/20 21:15 Active 400 mg PO BID Melatonin Med 03/13/20 20:00 Active 9 mg PO BEDTIME PRN Metoprolol Succinate [Toprol XL] Med 03/14/20 09:00 Active 75 mg PO DAILY Nitroglycerin [Nitrostat] Med 03/13/20 20:00 Active 0.4 mg SL ASDIRECTED PRN Omeprazole [Omeprazole] Med 03/14/20 09:00 Active 40 mg PO DAILY Ondansetron [Zofran ODT] Med 03/13/20 20:00 Active 4 mg PO Q6H PRN Piperacillin/Tazobactam [Zosyn] 3.375 gm Med 03/14/20 00:10 Active Sodium Chloride 0.9% [Normal Saline] 50 ml IV Q6H Sodium Chloride 0.9% [Normal Saline] 1,000 ml Med 03/13/20 20:00 Active IV ASDIRECTED Temazepam [Restoril] Med 03/13/20 20:00 Active 15 mg PO BEDTIME PRN Triamcinolone Acetonide [Triamcinolone Acetonide 0.1% Med 03/13/20 20:00 Active Crm] 0 gm TOP BID PRN Vancomycin Med 03/14/20 07:00 Active 1 gm IV .PHARMACY TO DOSE amLODIPine Besylate [Amlodipine Besylate] Med 03/14/20 09:00 Active 10 mg PO DAILY atorvaSTATin [Lipitor] Med 03/14/20 09:00 Active 40 mg PO DAILY bisacodyL [Dulcolax] Med 03/13/20 20:00 Active 5 mg PO DAILY PRN oxyCODONE Med 03/13/20 20:00 Active 10 mg PO Q4H PRN terbinafine HCL [Athlete's Foot] Med 03/13/20 20:00 Active 1 applic TOP BID PRN Blood Culture x2 Reflex Set [OM.PC] Urgent Oth 03/13/20 16:58 Ordered Heat Therapy [OM.PC] Routine Oth 03/13/20 20:00 Ordered Resuscitation Status Routine Resus Stat 03/13/20 19:39 Ordered Medication Orders Acetaminophen (Tylenol) 650 mg PO Q4H PRN PRN Reason: Pain (Mild 1-3)/fever Albuterol (Proventil Neb Soln) 2.5 mg NEB Q4H PRN PRN Reason: Shortness Of Breath/wheezing Apixaban (Eliquis) 5 mg PO BID [facility] Last Admin: 03/13/20 20:55 Dose: 5 mg Documented by: ANDREI Aspirin (Halfprin) 81 mg PO DAILY [facility] Bisacodyl (Dulcolax) 5 mg PO DAILY PRN PRN Reason: Constipation Cetirizine HCl (Zyrtec) 10 mg PO DAILY [facility] Chlorthalidone (Chlorthalidone) 12.5 mg PO DAILY [facility] Cyclobenzaprine HCl (Flexeril) 10 mg PO BEDTIME [facility] Last Admin: 03/13/20 20:55 Dose: 10 mg Documented by: ANDREI Docusate Sodium (Colace) 100 mg PO BID PRN PRN Reason: Constipation Furosemide (Lasix) 60 mg PO DAILY [facility] Gabapentin (Neurontin) 300 mg PO TID [facility] Last Admin: 03/13/20 20:55 Dose: 300 mg Documented by: ANDREI Sodium Chloride (Normal Saline) 1,000 mls @ 75 mls/hr IV ASDIRECTED [facility] Piperacillin Sod/Tazobactam (Sod 3.375 gm/ Sodium Chloride) 50 mls @ 100 mls/hr IV Q6H [facility] Insulin Human Isoph/Insulin Regular (Humulin 70-30) 5 units SUBCUT ACBREAKFAST PRN PRN Reason: Blood Glucose GREATER THAN 200 Insulin Human Lispro (Humalog) 0 unit SUBCUT QIDACANDBED [facility]; Protocol Last Admin: 03/13/20 21:17 Dose: 1 unit Documented by: ANDREI Cosigned by: CANDIEOLALevi Lorazepam (Ativan) 1 mg IV Q6H PRN PRN Reason: Nausea/Vomiting Magnesium Oxide (Magnesium Oxide) 400 mg PO BID [facility] Last Admin: 03/13/20 21:16 Dose: 400 mg Documented by: ANDREI Melatonin (Melatonin) 9 mg PO BEDTIME PRN PRN Reason: Insomnia Metoprolol Succinate (Toprol Xl) 75 mg PO DAILY [facility] Nitroglycerin (Nitrostat) 0.4 mg SL ASDIRECTED PRN PRN Reason: Chest Pain Non-Formulary Medication (Acetaminophen [Tylenol Arthritis]) 650 mg PO ASDIRECTED PRN PRN Reason: Pain Non-Formulary Medication (Amlodipine Besylate [Amlodipine Besylate]) 10 mg PO DAILY MARLYN Non-Formulary Medication (Atorvastatin [Lipitor]) 40 mg PO DAILY [facility] Non-Formulary Medication (Fluticasone Propionate [Flovent Hfa]) 1 spray INH DAILY PRN PRN Reason: Allergies Non-Formulary Medication (Latanoprost/Pf [Latanoprost 0.005% Eye Drop]) 1 drop EYEBOTH DAILY MAR[place]N Non-Formulary Medication (Losartan [Cozaar]) 100 mg PO DAILY [facility]N Non-Formulary Medication (Omeprazole [Omeprazole]) 40 mg PO DAILY [facility] Non-Formulary Medication (Terbinafine Hcl [Athlete's Foot]) 1 applic TOP BID PRN PRN Reason: .infection Ondansetron HCl (Zofran Odt) 4 mg PO Q6H PRN PRN Reason: Nausea able to take PO Oxycodone HCl (Oxycodone) 10 mg PO Q4H PRN PRN Reason: Pain (moderate 4-6) Temazepam (Restoril) 15 mg PO BEDTIME PRN PRN Reason: Sleep Last Admin: 03/13/20 20:55 Dose: 15 mg Documented by: ANDREI Triamcinolone Acetonide (Triamcinolone Acetonide 0.1% Crm) 0 gm TOP BID PRN PRN Reason: Rash Vancomycin HCl (Vancomycin) 1 gm IV .PHARMACY TO DOSE MARLYN Assessment/Plan Comment:: ASSESSMENT AND PLAN Mr. Boucher reports on Wednesday03-09-2020 notice his right leg felt heavier than usual, throbbing pain, felt feverish with chills. [facility], also has a chronic ulcer to left lower leg needed evaluation. He was seen today in [facility] in [place], [place]. It was odin mmended to go to ER for evaluation and possible admission. On exam his right noted to have dm ulcer. The Left left has redness from upper thigh to toes, skin is firm, red, edema and painful to touch. It was recommended he be admitted to hospital for further care and treatment. and Mrs. Boucher agree with plan of care. CELLULITIS- right leg -Zosyn 3.375 g IV every 6 hours -Vancomycin 1 gram IV every 12 hours -blood cultures x 2 -consult to [facility] for evaluation of diabetic ulcer left lower leg -am labs CBC, BMP Atrial fibrillation- chronic. Vital signs otherwise stable. -Eliquis 5 mg po bid -continue outpatient medications Diabetes Type 2 -Insulin 70/30 give 5 units daily for blood glucose over 200 -Insulin short acting low dose sliding scale coverage -Blood glucose testing before meals and at bedtime MAINTENANCE ISSUES -DVT prophylaxis- Eliquist 5mg po bid -GI prophylaxis- Prilosec 40 mg po daily -Jeffers catheter- not indicated -Nutrition- consistent carb diet -Nicotine dependence- non-smoker -Spiritual consult -PT consult for ambulation CODE STATUS-FULL CODE ADMISSION STATUS-patient will be admitted to inpatient status, expect at least a 2 night hospital stay for evaluation and management of problems as outlined above. At the time of this admission I do not reasonably expected evaluation and management of this problem will require more than a 96 hour hospital stay. DISPOSITION-anticipate discharge to home after the hospital stay. PRIMARY CARE PROVIDER-Dennis harry [facility] HOSPITALIST- Dr. Ge - Mortality Measure Prognosis:: Good
[2020-03-14] MEDS: Piperacillin/Tazobactam 3.375 GM in Sodium Chloride 0.9% 50 ML IV SCH ×2 (00:33→05:23)
[2020-03-14] MEDS: Melatonin 3 MG Tab PO PRN ×2 (00:43→21:04)
[2020-03-14] MEDS ORDERED: Vancomycin 1 GM SDV IV SCH (07:00)
[2020-03-14] MEDS ORDERED: Insulin NPH/Insulin Regular,Human 70-30 100 Units/ML 10 ML Vial SUBCUT PRN (07:30)
[2020-03-14] MEDS: Pantoprazole 40 MG Tab.CR PO SCH (07:42)
[2020-03-14] MEDS: Insulin Lispro 100 Unit/ML 3 ML KwikPen SUBCUT SCH ×4 (08:40→20:57)
[2020-03-14] MEDS: atorvaSTATin 20 MG Tab PO SCH (08:45)
[2020-03-14] MEDS: Losartan 50 MG Tab PO SCH (08:46)
[2020-03-14] MEDS: Aspirin 81 MG Tab.EC PO SCH (08:47)
[2020-03-14] MEDS: Magnesium Oxide 400 MG Tab PO SCH ×2 (08:47→20:55)
[2020-03-14] MEDS: Gabapentin 300 MG Cap PO SCH ×3 (08:47→20:54)
[2020-03-14] MEDS: Furosemide 40 MG, Furosemide 20 MG PO SCH ×2 (08:48)
[2020-03-14] MEDS: Cetirizine 10 MG Tab PO SCH (08:48)
[2020-03-14] MEDS: Apixaban 5 MG Tab PO SCH ×2 (08:48→20:54)
[2020-03-14] MEDS: Chlorthalidone 25 MG Tab PO SCH (08:49)
[2020-03-14] MEDS: amLODIPine 5 MG Tab PO SCH (08:50)
[2020-03-14] MEDS: Vancomycin 1.6 GM in Sodium Chloride 0.9% 250 ML IV SCH ×2 (08:51→20:06)
[2020-03-14] MEDS ORDERED: Metoprolol Succinate 50 MG Tab.ER PO SCH (09:00)
[2020-03-14] MEDS ORDERED: Non-Formulary Medication 1 Each (Amlodipine Besylate [Amlodipine Besylate] 10 MG) PO SCH (09:00)
[2020-03-14] MEDS ORDERED: Non-Formulary Medication 1 Each (Omeprazole [Omeprazole] 40 MG) PO SCH (09:00)
[2020-03-14] MEDS ORDERED: Non-Formulary Medication 1 Each (Latanoprost/Pf [Latanoprost 0.005% Eye Drop] 1 DROP) EYEBOTH SCH (09:00)
[2020-03-14] MEDS ORDERED: Non-Formulary Medication 1 Each (Losartan [Cozaar] 100 MG) PO SCH (09:00)
[2020-03-14] MEDS ORDERED: Non-Formulary Medication 1 Each (Atorvastatin [Lipitor] 40 MG) PO SCH (09:00)
[2020-03-14] MEDS ORDERED: Furosemide 40 MG Tab PO SCH (09:00)
--- NOTE | 2020-03-14 09:13 | US ---
VL Duplex Lwr Ext Veins Ltd Rt INDICATION: swelling, pain, redness right leg FINDINGS: Ultrasound examination of the lower extremity using Doppler and compressive technique demonstrates that the common femoral, femoral, and popliteal veins are patent, and negative for thrombus. The calf veins were segmentally visualized and are negative where seen. IMPRESSION: Negative for deep venous thrombosis.
--- NOTE | 2020-03-14 09:28 | CR ---
CHEST: Portable 03/14/2020 at 3:19 AM CLINICAL HISTORY:CHF COMPARISON:01/16/2020 FINDINGS: Heart is enlarged. Patient has had previous sternotomy. Pulmonary vascularity is mildly cephalized. This may be chronic. There is mild generalized interstitial prominence which may also be chronic. There are no effusions. Impression: Moderate cardiomegaly Increase in pulmonary vascularity and interstitial markings. Some of this may be chronic. Some element of cardiac decompensation is not excluded
[2020-03-14] MEDS ORDERED: TERBINAFINE TOP PRN (10:23)
--- NOTE | 2020-03-14 10:32 | PCM.PN ---
- General Info Date of Service: 03/14/20 Admission Dx/Problem (Free Text): 1. RLE Cellulitis 2. Significant peripheral edema Subjective Update: Seen with Rn team this Am. Patient states he is feeling about the same. RN notes erythema and streaking into the proximal medial R thigh. No fever. Pain controlled. Functional Status: Reports: Pain Controlled, Tolerating Diet, Ambulating - Review of Systems General: Reports: No Symptoms HEENT: Reports: No Symptoms Pulmonary: Reports: No Symptoms Cardiovascular: Reports: No Symptoms Musculoskeletal: Reports: No Symptoms - Patient Data Vitals - Most Recent: Last Vital Signs Temp 97.1 F 03/14/20 07:16 Pulse 82 03/14/20 08:49 Resp 16 03/14/20 07:16 BP 137/86 03/14/20 08:50 Pulse Ox 99 03/14/20 07:16 Weight - Most Recent: 244 lb 7.988 oz I&O - Last 24 Hours: Intake & Output 03/13/20 03/14/20 03/14/20 22:59 06:59 14:59 Intake Total 480 400 Output Total 100 350 Balance 380 50 Lab Results Last 24 Hours: Laboratory Results - last 24 hr 03/13/20 03/13/20 03/13/20 Range/Units 17:04 17:04 21:00 WBC 7.6 (4.5-11.0) K/uL RBC 4.40 (4.30-5.90) M/uL Hgb 10.8 L (12.0-15.0) g/dL Hct 34.9 L (40.0-54.0) % MCV 79 L (80-98) fL MCH 25 L (27-31) pg MCHC 31 L (32-36) % Plt Count 219 (150-400) K/uL Neut % (Auto) 80 H (36-66) % Lymph % (Auto) 9 L (24-44) % Pierce % (Auto) 10 H (2-6) % Eos % (Auto) 1 L (2-4) % Baso % (Auto) 0 (0-1) % PT (9.5-12.0) sec INR (0.80-1.20) Sodium 135 L (140-148) mmol/L Potassium 4.6 (3.6-5.2) mmol/L Chloride 101 (100-108) mmol/L Carbon Dioxide 26 (21-32) mmol/L Anion Gap 12.6 (5.0-14.0) mmol/L BUN 32 H (7-18) mg/dL Creatinine 1.1 (0.8-1.3) mg/dL Est Cr Clr Drug Dosing 64.65 mL/min Estimated GFR (MDRD) > 60 (>60) Glucose 192 H (74-106) mg/dL POC Glucose 182 H (74-106) MG/DL Calcium 8.5 (8.5-10.1) mg/dL Total Bilirubin 0.3 (0.2-1.0) mg/dL AST 32 (15-37) U/L ALT 53 D (12-78) U/L Alkaline Phosphatase 73 (46-116) U/L C-Reactive Protein 7.19 H (0.0-0.3) mg/dL Total Protein 5.7 L (6.4-8.2) g/dL Albumin 2.7 L (3.4-5.0) g/dL Globulin 3.0 (2.3-3.5) g/dL Albumin/Globulin Ratio 0.9 L (1.2-2.2) 03/14/20 03/14/20 03/14/20 Range/Units 05:11 05:11 05:11 WBC 7.5 (4.5-11.0) K/uL RBC 4.49 (4.30-5.90) M/uL Hgb 10.7 L (12.0-15.0) g/dL Hct 35.7 L (40.0-54.0) % MCV 80 (80-98) fL MCH 24 L (27-31) pg MCHC 30 L (32-36) % Plt Count 225 (150-400) K/uL Neut % (Auto) 77 H (36-66) % Lymph % (Auto) 10 L (24-44) % Pierce % (Auto) 11 H (2-6) % Eos % (Auto) 2 (2-4) % Baso % (Auto) 0 (0-1) % PT 12.8 H (9.5-12.0) sec INR 1.18 (0.80-1.20) Sodium 135 L (140-148) mmol/L Potassium 4.2 (3.6-5.2) mmol/L Chloride 103 (100-108) mmol/L Carbon Dioxide 23 (21-32) mmol/L Anion Gap 13.2 (5.0-14.0) mmol/L BUN 26 H (7-18) mg/dL Creatinine 1.0 (0.8-1.3) mg/dL Est Cr Clr Drug Dosing 71.12 mL/min Estimated GFR (MDRD) > 60 (>60) Glucose 166 H (74-106) mg/dL POC Glucose (74-106) MG/DL Calcium 8.6 (8.5-10.1) mg/dL Total Bilirubin (0.2-1.0) mg/dL AST (15-37) U/L ALT (12-78) U/L Alkaline Phosphatase (46-116) U/L C-Reactive Protein (0.0-0.3) mg/dL Total Protein (6.4-8.2) g/dL Albumin (3.4-5.0) g/dL Globulin (2.3-3.5) g/dL Albumin/Globulin Ratio (1.2-2.2) 03/14/20 Range/Units 07:30 WBC (4.5-11.0) K/uL RBC (4.30-5.90) M/uL Hgb (12.0-15.0) g/dL Hct (40.0-54.0) % MCV (80-98) fL MCH (27-31) pg MCHC (32-36) % Plt Count (150-400) K/uL Neut % (Auto) (36-66) % Lymph % (Auto) (24-44) % Pierce % (Auto) (2-6) % Eos % (Auto) (2-4) % Baso % (Auto) (0-1) % PT (9.5-12.0) sec INR (0.80-1.20) Sodium (140-148) mmol/L Potassium (3.6-5.2) mmol/L Chloride (100-108) mmol/L Carbon Dioxide (21-32) mmol/L Anion Gap (5.0-14.0) mmol/L BUN (7-18) mg/dL Creatinine (0.8-1.3) mg/dL Est Cr Clr Drug Dosing mL/min Estimated GFR (MDRD) (>60) Glucose (74-106) mg/dL POC Glucose 165 H (74-106) MG/DL Calcium (8.5-10.1) mg/dL Total Bilirubin (0.2-1.0) mg/dL AST (15-37) U/L ALT (12-78) U/L Alkaline Phosphatase (46-116) U/L C-Reactive Protein (0.0-0.3) mg/dL Total Protein (6.4-8.2) g/dL Albumin (3.4-5.0) g/dL Globulin (2.3-3.5) g/dL Albumin/Globulin Ratio (1.2-2.2) Med Orders - Current: Current Medications Acetaminophen (Tylenol) 650 mg PO Q4H PRN PRN Reason: Pain (Mild 1-3)/fever Acetaminophen (Tylenol Extra Strength) 1,000 mg PO TID [facility] Albuterol (Proventil Neb Soln) 2.5 mg NEB Q4H PRN PRN Reason: Shortness Of Breath/wheezing Amlodipine Besylate (Norvasc) 10 mg PO DAILY [facility] Last Admin: 03/14/20 08:50 Dose: 10 mg Documented by: Apixaban (Eliquis) 5 mg PO BID [facility] Last Admin: 03/14/20 08:48 Dose: 5 mg Documented by: Aspirin (Halfprin) 81 mg PO DAILY [facility] Last Admin: 03/14/20 08:47 Dose: 81 mg Documented by: Atorvastatin Calcium (Lipitor) 40 mg PO DAILY [facility] Last Admin: 03/14/20 08:45 Dose: 40 mg Documented by: Bisacodyl (Dulcolax) 5 mg PO DAILY PRN PRN Reason: Constipation Cetirizine HCl (Zyrtec) 10 mg PO DAILY [facility] Last Admin: 03/14/20 08:48 Dose: 10 mg Documented by: Chlorthalidone (Chlorthalidone) 12.5 mg PO DAILY [facility] Last Admin: 03/14/20 08:49 Dose: 12.5 mg Documented by: Cyclobenzaprine HCl (Flexeril) 10 mg PO BEDTIME [facility] Last Admin: 03/13/20 20:55 Dose: 10 mg Documented by: Docusate Sodium (Colace) 100 mg PO BID PRN PRN Reason: Constipation Fluticasone Propionate (Flonase) 0 gm NASBOTH DAILY PRN PRN Reason: ALLERGIES Furosemide 40 mg/ Furosemide (20 mg) 60 mg PO DAILY [facility] Last Admin: 03/14/20 08:48 Dose: 60 mg Documented by: Gabapentin (Neurontin) 300 mg PO TID [facility] Last Admin: 03/14/20 08:47 Dose: 300 mg Documented by: Sodium Chloride (Normal Saline) 1,000 mls @ 75 mls/hr IV ASDIRECTED [facility] Last Admin: 03/14/20 02:37 Dose: 75 mls/hr Documented by: Piperacillin/Tazobactam/ (Dextrose 3.375 gm/ Premix) 50 mls @ 100 mls/hr IV Q6H [facility] Vancomycin HCl 1.6 gm/ Sodium (Chloride) 250 mls @ 166.667 mls/hr IV Q12H [facility] Last Admin: 03/14/20 08:51 Dose: 166.667 mls/hr Documented by: Insulin Human Isoph/Insulin Regular (Humulin 70-30) 5 units SUBCUT ACBREAKFAST PRN PRN Reason: Blood Glucose GREATER THAN 200 Insulin Human Lispro (Humalog) 0 unit SUBCUT QIDACANDBED [facility]; Protocol Last Admin: 03/14/20 08:40 Dose: 1 unit Documented by: Latanoprost (Xalatan 0.005% [facility]) 0 ml EYEBOTH BEDTIME [facility] Lorazepam (Ativan) 1 mg IV Q6H PRN PRN Reason: Nausea/Vomiting Losartan Potassium (Cozaar) 100 mg PO DAILY [facility] Last Admin: 03/14/20 08:46 Dose: 100 mg Documented by: Magnesium Oxide (Magnesium Oxide) 400 mg PO BID [facility] Last Admin: 03/14/20 08:47 Dose: 400 mg Documented by: Melatonin (Melatonin) 9 mg PO BEDTIME PRN PRN Reason: Insomnia Last Admin: 03/14/20 00:43 Dose: 9 mg Documented by: Metoprolol Succinate 50 mg/ (Metoprolol Succinate 25 mg) 75 mg PO DAILY [facility] Last Admin: 03/14/20 08:49 Dose: 75 mg Documented by: Nitroglycerin (Nitrostat) 0.4 mg SL ASDIRECTED PRN PRN Reason: Chest Pain Ondansetron HCl (Zofran Odt) 4 mg PO Q6H PRN PRN Reason: Nausea able to take PO Oxycodone HCl (Oxycodone) 10 mg PO Q4H PRN PRN Reason: Pain (moderate 4-6) Pantoprazole Sodium (Protonix) 40 mg PO ACBREAKFAST [facility] Last Admin: 03/14/20 07:42 Dose: 40 mg Documented by: Terbinafine Cream ( (Ptom)) 0 each TOP BID PRN PRN Reason: RASH Temazepam (Restoril) 15 mg PO BEDTIME PRN PRN Reason: Sleep Last Admin: 03/13/20 20:55 Dose: 15 mg Documented by: Triamcinolone Acetonide (Triamcinolone Acetonide 0.1% Crm) 0 gm TOP BID PRN PRN Reason: Rash Discontinued Medications Vancomycin HCl 1 gm/ Sodium (Chloride) 250 mls @ 150 mls/hr IV ONETIME ONE Stop: 03/13/20 18:59 Last Admin: 03/13/20 17:51 Dose: 150 mls/hr Documented by: Piperacillin Sod/Tazobactam (Sod 3.375 gm/ Sodium Chloride) 50 mls @ 100 mls/hr IV ONETIME [facility] Last Admin: 03/13/20 17:49 Dose: 100 mls/hr Documented by: Piperacillin Sod/Tazobactam (Sod 3.375 gm/ Sodium Chloride) 50 mls @ 100 mls/hr IV Q6H [facility] Last Admin: 03/14/20 05:23 Dose: 100 mls/hr Documented by: Magnesium Oxide (Magnesium Oxide) 400 mg PO BID [facility] Non-Formulary Medication (Acetaminophen [Tylenol Arthritis]) 650 mg PO ASDIRECTED PRN PRN Reason: Pain Non-Formulary Medication (Fluticasone Propionate [Flovent Hfa]) 1 spray INH DAILY PRN PRN Reason: Allergies Non-Formulary Medication (Latanoprost/Pf [Latanoprost 0.005% Eye Drop]) 1 drop EYEBOTH DAILY [facility] Non-Formulary Medication (Magnesium Oxide [Magnesium Oxide]) 420 mg PO BID [facility] Last Admin: 03/13/20 22:34 Dose: Not Given Documented by: Non-Formulary Medication (Terbinafine Hcl [Athlete's Foot]) 1 applic TOP BID PRN PRN Reason: .infection Vancomycin HCl (Vancomycin) 1 gm IV .PHARMACY TO DOSE MARLYN - Exam Quality Assessment: No: Supplemental Oxygen, Central Line/PICC, DVT Prophylaxis General: Alert, Oriented, Cooperative, No Acute Distress Lungs: Clear to Auscultation, Normal Respiratory Effort Cardiovascular: Regular Rate, Regular Rhythm Extremities: Normal Range of Motion, Non-Tender, Normal Capillary Refill, Pedal Edema, Leg Pain, Redness (associated with lymphangitic streaking in the R medial thigh). No: Normal Inspection, No Pedal Edema Sepsis Event Note - Evaluation Sepsis Screening Result: No Definite Risk - Focused Exam Vital Signs: Vital Signs Temp Pulse Pulse Resp BP BP Pulse Ox 03/14/20 08:50 137/86 03/14/20 08:49 82 137/86 03/14/20 08:46 137/86 03/14/20 07:16 97.1 F 82 16 137/96 H 99 03/14/20 03:10 96.4 F L 83 16 135/85 100 03/14/20 00:00 97.2 F 78 16 125/74 96 - Problem List Review Problem List Initiated/Reviewed/Updated: Yes - My Orders Last 24 Hours: My Active Orders 03/15/20 10:28 BASIC METABOLIC PANEL,BMP [CHEM] DAILY CBC WITH AUTO DIFF [HEME] DAILY 03/16/20 10:28 BASIC METABOLIC PANEL,BMP [CHEM] DAILY CBC WITH AUTO DIFF [HEME] DAILY 03/17/20 10:28 BASIC METABOLIC PANEL,BMP [CHEM] DAILY CBC WITH AUTO DIFF [HEME] DAILY 03/18/20 10:28 BASIC METABOLIC PANEL,BMP [CHEM] DAILY CBC WITH AUTO DIFF [HEME] DAILY - Plan Plan:: ASSESSMENT AND PLAN Mr. Boucher reports on Wednesday03-09-2020 notice his right leg felt heavier than usual, throbbing pain, felt feverish with chills[facility], also has a chronic ulcer to left lower leg needed evaluation. He was seen today in [facility] in [place], [place]. It was recommended to go to ER for evaluation and possible admission. On exam his right noted to have dm ulcer. The Left left has redness from upper thigh to toes, skin is firm, red, edema and painful to touch. It was recommended he be admitted to hospital for further care and treatment. and Mrs. Boucher agree with plan of care. UPDATE Hospital Day #2: Patient was seen in room sitting on chair. Legs elevated when in bed, but not whilst sitting. Lymphangitic streaking c/w cellulitis noted up the medial proximal R thigh CELLULITIS- right leg -Zosyn 3.375 g IV every 6 hours -Vancomycin 1 gram IV every 12 hours -blood cultures x 2 -consult to [facility]ound Clinic for evaluation of diabetic ulcer left lower leg -Daily -- labs CBC, BMP -Elevate RLE, bilateral edema wraps Atrial fibrillation- chronic. Vital signs otherwise stable. -Eliquis 5 mg po bid -continue outpatient medications Diabetes Type 2 -Insulin 70/30 give 5 units daily for blood glucose over 200 -Insulin short acting low dose sliding scale coverage -Blood glucose testing before meals and at bedtime MAINTENANCE ISSUES -DVT prophylaxis- Eliquist 5mg po bid -GI prophylaxis- Prilosec 40 mg po daily -Jeffers catheter- not indicated -Nutrition- consistent carb diet -Nicotine dependence- non-smoker -Spiritual consult -PT consult for ambulation CODE STATUS-FULL CODE ADMISSION STATUS-patient will be admitted to inpatient status, expect at least a 2 night hospital stay for evaluation and management of problems as outlined above. At the time of this admission I do not reasonably expected evaluation and management of this problem will require more than a 96 hour hospital stay. DISPOSITION-anticipate discharge to home after the hospital stay. PRIMARY CARE PROVIDER-[facility] HOSPITALIST- Dr. Solis
[2020-03-14] MEDS: Acetaminophen 325 MG Tab PO PRN (11:18)
[2020-03-14] MEDS: Piperacillin/Tazobactam/Dext 3.375 GM in Premix Bag 1 BAG IV SCH ×2 (12:39→17:25)
[2020-03-14] MEDS: Acetaminophen 500 MG Tab PO SCH ×2 (15:02→20:55)
[2020-03-14] MEDS: Latanoprost 0.005% Ophth Soln 2.5 ML Bottle EYEBOTH SCH (20:55)
[2020-03-14] MEDS: Cyclobenzaprine 10 MG Tab PO SCH (20:55)
[2020-03-15] MEDS: Piperacillin/Tazobactam/Dext 3.375 GM in Premix Bag 1 BAG IV SCH ×4 (00:24→18:09)
[2020-03-15] MEDS: Vancomycin 1.6 GM in Sodium Chloride 0.9% 250 ML IV SCH ×2 (09:15→20:06)
[2020-03-15] MEDS: Pantoprazole 40 MG Tab.CR PO SCH (09:16)
[2020-03-15] MEDS: Magnesium Oxide 400 MG Tab PO SCH ×2 (09:17→20:08)
[2020-03-15] MEDS: atorvaSTATin 20 MG Tab PO SCH (09:17)
[2020-03-15] MEDS: Losartan 50 MG Tab PO SCH (09:17)
[2020-03-15] MEDS: Aspirin 81 MG Tab.EC PO SCH (09:17)
[2020-03-15] MEDS: Apixaban 5 MG Tab PO SCH ×2 (09:17→20:08)
[2020-03-15] MEDS: Furosemide 40 MG, Furosemide 20 MG PO SCH ×2 (09:17)
[2020-03-15] MEDS: Acetaminophen 500 MG Tab PO SCH ×3 (09:18→20:10)
[2020-03-15] MEDS: Gabapentin 300 MG Cap PO SCH ×3 (09:18→20:09)
[2020-03-15] MEDS: Cetirizine 10 MG Tab PO SCH (09:18)
[2020-03-15] MEDS: amLODIPine 5 MG Tab PO SCH (09:18)
[2020-03-15] MEDS: Insulin Lispro 100 Unit/ML 3 ML KwikPen SUBCUT SCH ×3 (09:25→17:41)
[2020-03-15] MEDS: Chlorthalidone 25 MG Tab PO SCH (09:27)
--- NOTE | 2020-03-15 13:20 | PCM.PN ---
- General Info Date of Service: 03/15/20 Admission Dx/Problem (Free Text): 1. RLL Cellulitis 2. Lymphedema Subjective Update: Patient seen with team this AM. Notes some improvement in pain in the RLE, but otherwise not much of a change in status. Patient otherwise stable. Functional Status: Reports: Pain Controlled, Tolerating Diet - Review of Systems General: Reports: No Symptoms HEENT: Reports: No Symptoms Pulmonary: Reports: No Symptoms Cardiovascular: Reports: No Symptoms - Patient Data Vitals - Most Recent: Last Vital Signs Temp 95.7 F L 03/15/20 08:23 Pulse 84 03/15/20 09:17 Resp 17 03/15/20 08:23 BP 114/54 L 03/15/20 09:18 Pulse Ox 98 03/15/20 08:23 Weight - Most Recent: 244 lb 7.988 oz I&O - Last 24 Hours: Intake & Output 03/14/20 03/15/20 03/15/20 22:59 06:59 14:59 Intake Total 590 165 Output Total 175 450 Balance -175 140 165 Lab Results Last 24 Hours: Laboratory Results - last 24 hr 03/14/20 03/14/20 03/15/20 Range/Units 16:18 20:57 05:13 WBC 7.5 (4.5-11.0) K/uL RBC 4.36 (4.30-5.90) M/uL Hgb 10.4 L (12.0-15.0) g/dL Hct 35.0 L (40.0-54.0) % MCV 80 (80-98) fL MCH 24 L (27-31) pg MCHC 30 L (32-36) % Plt Count 217 (150-400) K/uL Neut % (Auto) 74 H (36-66) % Lymph % (Auto) 11 L (24-44) % Carroll % (Auto) 11 H (2-6) % Eos % (Auto) 4 (2-4) % Baso % (Auto) 0 (0-1) % Sodium (140-148) mmol/L Potassium (3.6-5.2) mmol/L Chloride (100-108) mmol/L Carbon Dioxide (21-32) mmol/L Anion Gap (5.0-14.0) mmol/L BUN (7-18) mg/dL Creatinine (0.8-1.3) mg/dL Est Cr Clr Drug Dosing mL/min Estimated GFR (MDRD) (>60) Glucose (74-106) mg/dL POC Glucose 205 H 208 H (74-106) MG/DL Calcium (8.5-10.1) mg/dL 03/15/20 03/15/20 03/15/20 Range/Units 05:13 07:30 11:36 WBC (4.5-11.0) K/uL RBC (4.30-5.90) M/uL Hgb (12.0-15.0) g/dL Hct (40.0-54.0) % MCV (80-98) fL MCH (27-31) pg MCHC (32-36) % Plt Count (150-400) K/uL Neut % (Auto) (36-66) % Lymph % (Auto) (24-44) % Carroll % (Auto) (2-6) % Eos % (Auto) (2-4) % Baso % (Auto) (0-1) % Sodium 138 L (140-148) mmol/L Potassium 4.3 (3.6-5.2) mmol/L Chloride 103 (100-108) mmol/L Carbon Dioxide 25 (21-32) mmol/L Anion Gap 14.3 H (5.0-14.0) mmol/L BUN 24 H (7-18) mg/dL Creatinine 1.1 (0.8-1.3) mg/dL Est Cr Clr Drug Dosing 64.39 mL/min Estimated GFR (MDRD) > 60 (>60) Glucose 148 H (74-106) mg/dL POC Glucose 170 H 206 H (74-106) MG/DL Calcium 8.3 L (8.5-10.1) mg/dL Jhonny Results Last 24 Hours: Microbiology 03/13/20 17:04 Aerobic Blood Culture - Preliminary Blood - Venous NO GROWTH AFTER 1 DAY Anaerobic Blood Culture - Preliminary NO GROWTH AFTER 1 DAY 03/13/20 17:12 Aerobic Blood Culture - Preliminary Blood - Arm, Right NO GROWTH AFTER 1 DAY Anaerobic Blood Culture - Preliminary NO GROWTH AFTER 1 DAY Med Orders - Current: Current Medications Acetaminophen (Tylenol) 650 mg PO Q4H PRN PRN Reason: Pain (Mild 1-3)/fever Last Admin: 03/14/20 11:18 Dose: 650 mg Documented by: Acetaminophen (Tylenol Extra Strength) 1,000 mg PO TID [facility] Last Admin: 03/15/20 09:18 Dose: 1,000 mg Documented by: Albuterol (Proventil Neb Soln) 2.5 mg NEB Q4H PRN PRN Reason: Shortness Of Breath/wheezing Amlodipine Besylate (Norvasc) 10 mg PO DAILY [facility] Last Admin: 03/15/20 09:18 Dose: 10 mg Documented by: Apixaban (Eliquis) 5 mg PO BID [facility] Last Admin: 03/15/20 09:17 Dose: 5 mg Documented by: Aspirin (Halfprin) 81 mg PO DAILY [facility] Last Admin: 03/15/20 09:17 Dose: 81 mg Documented by: Atorvastatin Calcium (Lipitor) 40 mg PO DAILY [facility] Last Admin: 03/15/20 09:17 Dose: 40 mg Documented by: Bisacodyl (Dulcolax) 5 mg PO DAILY PRN PRN Reason: Constipation Cetirizine HCl (Zyrtec) 10 mg PO DAILY [facility] Last Admin: 03/15/20 09:18 Dose: 10 mg Documented by: Chlorthalidone (Chlorthalidone) 12.5 mg PO DAILY [facility] Last Admin: 03/15/20 09:27 Dose: 12.5 mg Documented by: Cyclobenzaprine HCl (Flexeril) 10 mg PO BEDTIME [facility] Last Admin: 03/14/20 20:55 Dose: 10 mg Documented by: Docusate Sodium (Colace) 100 mg PO BID PRN PRN Reason: Constipation Fluticasone Propionate (Flonase) 0 gm NASBOTH DAILY PRN PRN Reason: ALLERGIES Furosemide 40 mg/ Furosemide (20 mg) 60 mg PO DAILY [facility] Last Admin: 03/15/20 09:17 Dose: 60 mg Documented by: Gabapentin (Neurontin) 300 mg PO TID [facility] Last Admin: 03/15/20 09:18 Dose: 300 mg Documented by: Piperacillin/Tazobactam/ (Dextrose 3.375 gm/ Premix) 50 mls @ 100 mls/hr IV Q6H [facility] Last Admin: 03/15/20 12:30 Dose: 100 mls/hr Documented by: Vancomycin HCl 1.6 gm/ Sodium (Chloride) 250 mls @ 166.667 mls/hr IV Q12H [facility] Last Admin: 03/15/20 09:15 Dose: 166.667 mls/hr Documented by: Insulin Human Isoph/Insulin Regular (Humulin 70-30) 5 units SUBCUT ACBREAKFAST PRN PRN Reason: Blood Glucose GREATER THAN 200 Insulin Human Lispro (Humalog) 0 unit SUBCUT QIDACANDBED [facility]; Protocol Last Admin: 03/15/20 12:28 Dose: 2 unit Documented by: Latanoprost (Xalatan 0.005% Ophth Soln) 0 ml EYEBOTH BEDTIME [facility] Last Admin: 03/14/20 20:55 Dose: 1 drop Documented by: Lorazepam (Ativan) 1 mg IV Q6H PRN PRN Reason: Nausea/Vomiting Losartan Potassium (Cozaar) 100 mg PO DAILY [facility] Last Admin: 03/15/20 09:17 Dose: 100 mg Documented by: Magnesium Oxide (Magnesium Oxide) 400 mg PO BID [facility] Last Admin: 03/15/20 09:17 Dose: 400 mg Documented by: Melatonin (Melatonin) 9 mg PO BEDTIME PRN PRN Reason: Insomnia Last Admin: 03/14/20 21:04 Dose: 9 mg Documented by: Metoprolol Succinate 50 mg/ (Metoprolol Succinate 25 mg) 75 mg PO DAILY [facility] Last Admin: 03/15/20 09:17 Dose: 75 mg Documented by: Nitroglycerin (Nitrostat) 0.4 mg SL ASDIRECTED PRN PRN Reason: Chest Pain Ondansetron HCl (Zofran Odt) 4 mg PO Q6H PRN PRN Reason: Nausea able to take PO Oxycodone HCl (Oxycodone) 10 mg PO Q4H PRN PRN Reason: Pain (moderate 4-6) Pantoprazole Sodium (Protonix) 40 mg PO ACBREAKFAST [facility] Last Admin: 03/15/20 09:16 Dose: 40 mg Documented by: Terbinafine Cream ( (Ptom)) 0 each TOP BID PRN PRN Reason: RASH Temazepam (Restoril) 15 mg PO BEDTIME PRN PRN Reason: Sleep Last Admin: 03/13/20 20:55 Dose: 15 mg Documented by: Triamcinolone Acetonide (Triamcinolone Acetonide 0.1% Crm) 0 gm TOP BID PRN PRN Reason: Rash Discontinued Medications Vancomycin HCl 1 gm/ Sodium (Chloride) 250 mls @ 150 mls/hr IV ONETIME ONE Stop: 03/13/20 18:59 Last Admin: 03/13/20 17:51 Dose: 150 mls/hr Documented by: Piperacillin Sod/Tazobactam (Sod 3.375 gm/ Sodium Chloride) 50 mls @ 100 mls/hr IV ONETIME [facility] Last Admin: 03/13/20 17:49 Dose: 100 mls/hr Documented by: Sodium Chloride (Normal Saline) 1,000 mls @ 75 mls/hr IV ASDIRECTED [facility] Last Admin: 03/14/20 02:37 Dose: 75 mls/hr Documented by: Piperacillin Sod/Tazobactam (Sod 3.375 gm/ Sodium Chloride) 50 mls @ 100 mls/hr IV Q6H [facility] Last Admin: 03/14/20 05:23 Dose: 100 mls/hr Documented by: Magnesium Oxide (Magnesium Oxide) 400 mg PO BID [facility] Non-Formulary Medication (Acetaminophen [Tylenol Arthritis]) 650 mg PO ASDIRECTED PRN PRN Reason: Pain Non-Formulary Medication (Fluticasone Propionate [Flovent Hfa]) 1 spray INH DAILY PRN PRN Reason: Allergies Non-Formulary Medication (Latanoprost/Pf [Latanoprost 0.005% Eye Drop]) 1 drop EYEBOTH DAILY [facility] Non-Formulary Medication (Magnesium Oxide [Magnesium Oxide]) 420 mg PO BID [facility] Last Admin: 03/13/20 22:34 Dose: Not Given Documented by: Non-Formulary Medication (Terbinafine Hcl [Athlete's Foot]) 1 applic TOP BID PRN PRN Reason: .infection Vancomycin HCl (Vancomycin) 1 gm IV .PHARMACY TO DOSE MARLYN - Exam Quality Assessment: DVT Prophylaxis. No: Supplemental Oxygen General: Alert, Oriented, Cooperative, No Acute Distress Lungs: Clear to Auscultation, Normal Respiratory Effort Cardiovascular: Regular Rate, Regular Rhythm, No Murmurs Extremities: Other (The previously noted erythema has retreated slightly from the proximal thigh. Erythema is somewhat better this Am globally) Sepsis Event Note - Evaluation Sepsis Screening Result: No Definite Risk - Focused Exam Vital Signs: Vital Signs Temp Pulse Pulse Resp BP BP Pulse Ox 03/15/20 09:18 114/54 L 03/15/20 09:17 84 114/54 L 03/15/20 08:23 95.7 F L 89 17 114/54 L 98 03/15/20 03:52 96.5 F L 69 20 110/52 L 90 L - Problem List Review Problem List Initiated/Reviewed/Updated: Yes - My Orders Last 24 Hours: My Active Orders 03/14/20 13:21 Convert IV to Saline Lock [OM.PC] Routine 03/15/20 10:33 Dressing Change [Wound Care] [RC] DAILY 03/15/20 10:39 Consult to Dietary [Consult to Vice Admiral] [CONS] Routine 03/16/20 10:28 BASIC METABOLIC PANEL,BMP [CHEM] DAILY CBC WITH AUTO DIFF [HEME] DAILY 03/17/20 10:28 BASIC METABOLIC PANEL,BMP [CHEM] DAILY CBC WITH AUTO DIFF [HEME] DAILY 03/18/20 10:28 BASIC METABOLIC PANEL,BMP [CHEM] DAILY CBC WITH AUTO DIFF [HEME] DAILY - Plan Plan:: ASSESSMENT AND PLAN Mr. Boucher reports on Wednesday03-09-2020 notice his right leg felt heavier than usual, throbbing pain, felt feverish with chills. [facility], also has a chronic ulcer to left lower leg needed evaluation. [facility] [place] [place]. It was recommended to go to ER for evaluation and possible admission. On exam his right noted to have dm ulcer. The Left left has redness from upper thigh to toes, skin is firm, red, edema and painful to touch. It was recommended he be admitted to hospital for further care and treatment. and Mrs. Boucher agree with plan of care. UPDATE Hospital Day #2: Patient was seen in room sitting on chair. Legs elevated when in bed, but not whilst sitting. Lymphangitic streaking c/w cellulitis noted up the medial proximal R thigh UPDATE Hospital Day #3: Patient is slightly improved this AM. Erythema is slightly improved. Tolerating atbx well. CELLULITIS- right leg -Zosyn 3.375 g IV every 6 hours -Vancomycin 1 gram IV every 12 hours -blood cultures x 2 -consult to [facility] for evaluation of diabetic ulcer left lower leg -Daily -- labs CBC, BMP -Elevate RLE, bilateral edema wraps Atrial fibrillation- chronic. Vital signs otherwise stable. -Eliquis 5 mg po bid -continue outpatient medications Diabetes Type 2 -Insulin 70/30 give 5 units daily for blood glucose over 200 -Insulin short acting low dose sliding scale coverage -Blood glucose testing before meals and at bedtime MAINTENANCE ISSUES -DVT prophylaxis- Eliquist 5mg po bid -GI prophylaxis- Prilosec 40 mg po daily -Jeffers catheter- not indicated -Nutrition- consistent carb diet -Nicotine dependence- non-smoker -Spiritual consult -PT consult for ambulation CODE STATUS-FULL CODE ADMISSION STATUS-patient will be admitted to inpatient status, expect at least a 2 night hospital stay for evaluation and management of problems as outlined above. At the time of this admission I do not reasonably expected evaluation and management of this problem will require more than a 96 hour hospital stay. DISPOSITION-anticipate discharge to home after the hospital stay. PRIMARY CARE PROVIDER-[facility] HOSPITALIST- Dr. Solis
[2020-03-15] MEDS: Latanoprost 0.005% Ophth Soln 2.5 ML Bottle EYEBOTH SCH (20:08)
[2020-03-15] MEDS: Cyclobenzaprine 10 MG Tab PO SCH (20:13)
[2020-03-16] MEDS: Insulin Lispro 100 Unit/ML 3 ML KwikPen SUBCUT SCH ×5 (00:08→22:38)
[2020-03-16] MEDS: Piperacillin/Tazobactam/Dext 3.375 GM in Premix Bag 1 BAG IV SCH ×4 (00:11→17:10)
[2020-03-16] MEDS: Pantoprazole 40 MG Tab.CR PO SCH (07:59)
[2020-03-16] MEDS: Chlorthalidone 25 MG Tab PO SCH (08:21)
[2020-03-16] MEDS: Losartan 50 MG Tab PO SCH (08:22)
[2020-03-16] MEDS: Apixaban 5 MG Tab PO SCH ×2 (08:24→20:57)
[2020-03-16] MEDS: Aspirin 81 MG Tab.EC PO SCH (08:24)
[2020-03-16] MEDS: Furosemide 40 MG, Furosemide 20 MG PO SCH ×2 (08:25)
[2020-03-16] MEDS: atorvaSTATin 20 MG Tab PO SCH (08:26)
[2020-03-16] MEDS: amLODIPine 5 MG Tab PO SCH (08:28)
[2020-03-16] MEDS: Magnesium Oxide 400 MG Tab PO SCH ×2 (08:28→20:57)
[2020-03-16] MEDS: Gabapentin 300 MG Cap PO SCH ×3 (08:28→20:58)
[2020-03-16] MEDS: Cetirizine 10 MG Tab PO SCH (08:32)
[2020-03-16] MEDS: Acetaminophen 500 MG Tab PO SCH ×3 (08:32→20:58)
[2020-03-16] MEDS: Vancomycin 1.6 GM in Sodium Chloride 0.9% 250 ML IV SCH ×2 (09:29→20:55)
--- NOTE | 2020-03-16 12:46 | PCM.PN ---
- General Info Date of Service: 03/16/20 Admission Dx/Problem (Free Text): Cellulitis Subjective Update: Patient seen this AM. Feeling well and is ambulating without difficulties. Erythema is slightly improved from 03/15. No other issues noted Functional Status: Reports: Pain Controlled, Tolerating Diet. Denies: New Symptoms - Review of Systems General: Reports: No Symptoms HEENT: Reports: No Symptoms Pulmonary: Reports: No Symptoms Cardiovascular: Reports: No Symptoms Gastrointestinal: Reports: No Symptoms Skin: Reports: No Symptoms - Patient Data Vitals - Most Recent: Last Vital Signs Temp 97.4 F 03/16/20 07:44 Pulse 79 03/16/20 08:30 Resp 28 H 03/16/20 07:44 BP 130/64 03/16/20 08:30 Pulse Ox 91 L 03/16/20 07:44 Weight - Most Recent: 244 lb 7.988 oz I&O - Last 24 Hours: Intake & Output 03/15/20 03/16/20 03/16/20 22:59 06:59 14:59 Output Total 75 250 625 Balance -75 -250 -625 Lab Results Last 24 Hours: Laboratory Results - last 24 hr 03/15/20 03/15/20 03/16/20 Range/Units 16:30 21:00 08:08 WBC (4.5-11.0) K/uL RBC (4.30-5.90) M/uL Hgb (12.0-15.0) g/dL Hct (40.0-54.0) % MCV (80-98) fL MCH (27-31) pg MCHC (32-36) % Plt Count (150-400) K/uL Neut % (Auto) (36-66) % Lymph % (Auto) (24-44) % [place] % (Auto) (2-6) % Eos % (Auto) (2-4) % Baso % (Auto) (0-1) % Sodium (140-148) mmol/L Potassium (3.6-5.2) mmol/L Chloride (100-108) mmol/L Carbon Dioxide (21-32) mmol/L Anion Gap (5.0-14.0) mmol/L BUN (7-18) mg/dL Creatinine (0.8-1.3) mg/dL Est Cr Clr Drug Dosing mL/min Estimated GFR (MDRD) (>60) Glucose (74-106) mg/dL POC Glucose 171 H 171 H 176 H (74-106) MG/DL Calcium (8.5-10.1) mg/dL Vancomycin Trough (10.0-20.0) ug/mL 03/16/20 03/16/20 03/16/20 Range/Units 08:08 08:08 08:08 WBC 6.8 (4.5-11.0) K/uL RBC 4.52 (4.30-5.90) M/uL Hgb 10.9 L (12.0-15.0) g/dL Hct 36.1 L (40.0-54.0) % MCV 80 (80-98) fL MCH 24 L (27-31) pg MCHC 30 L (32-36) % Plt Count 295 (150-400) K/uL Neut % (Auto) 78 H (36-66) % Lymph % (Auto) 11 L (24-44) % [place] % (Auto) 9 H (2-6) % Eos % (Auto) 3 (2-4) % Baso % (Auto) 1 (0-1) % Sodium 137 L (140-148) mmol/L Potassium 4.4 (3.6-5.2) mmol/L Chloride 102 (100-108) mmol/L Carbon Dioxide 26 (21-32) mmol/L Anion Gap 13.4 (5.0-14.0) mmol/L BUN 20 H (7-18) mg/dL Creatinine 1.1 (0.8-1.3) mg/dL Est Cr Clr Drug Dosing 64.39 mL/min Estimated GFR (MDRD) > 60 (>60) Glucose 202 H (74-106) mg/dL POC Glucose (74-106) MG/DL Calcium 8.3 L (8.5-10.1) mg/dL Vancomycin Trough 16.0 (10.0-20.0) ug/mL 03/16/20 Range/Units 11:30 WBC (4.5-11.0) K/uL RBC (4.30-5.90) M/uL Hgb (12.0-15.0) g/dL Hct (40.0-54.0) % MCV (80-98) fL MCH (27-31) pg MCHC (32-36) % Plt Count (150-400) K/uL Neut % (Auto) (36-66) % Lymph % (Auto) (24-44) % [place] % (Auto) (2-6) % Eos % (Auto) (2-4) % Baso % (Auto) (0-1) % Sodium (140-148) mmol/L Potassium (3.6-5.2) mmol/L Chloride (100-108) mmol/L Carbon Dioxide (21-32) mmol/L Anion Gap (5.0-14.0) mmol/L BUN (7-18) mg/dL Creatinine (0.8-1.3) mg/dL Est Cr Clr Drug Dosing mL/min Estimated GFR (MDRD) (>60) Glucose (74-106) mg/dL POC Glucose 200 H (74-106) MG/DL Calcium (8.5-10.1) mg/dL Vancomycin Trough (10.0-20.0) ug/mL Jhonny Results Last 24 Hours: Microbiology 03/13/20 17:12 Aerobic Blood Culture - Preliminary Blood - Arm, Right NO GROWTH AFTER 2 DAYS Anaerobic Blood Culture - Preliminary NO GROWTH AFTER 2 DAYS 03/13/20 17:04 Aerobic Blood Culture - Preliminary Blood - Venous NO GROWTH AFTER 2 DAYS Anaerobic Blood Culture - Preliminary NO GROWTH AFTER 2 DAYS Med Orders - Current: Current Medications Acetaminophen (Tylenol) 650 mg PO Q4H PRN PRN Reason: Pain (Mild 1-3)/fever Last Admin: 03/14/20 11:18 Dose: 650 mg Documented by: Acetaminophen (Tylenol Extra Strength) 1,000 mg PO TID [facility] Last Admin: 03/16/20 08:32 Dose: 1,000 mg Documented by: Albuterol (Proventil Neb Soln) 2.5 mg NEB Q4H PRN PRN Reason: Shortness Of Breath/wheezing Amlodipine Besylate (Norvasc) 10 mg PO DAILY [facility] Last Admin: 03/16/20 08:28 Dose: 10 mg Documented by: Apixaban (Eliquis) 5 mg PO BID [facility] Last Admin: 03/16/20 08:24 Dose: 5 mg Documented by: Aspirin (Halfprin) 81 mg PO DAILY [facility] Last Admin: 03/16/20 08:24 Dose: 81 mg Documented by: Atorvastatin Calcium (Lipitor) 40 mg PO DAILY [facility] Last Admin: 03/16/20 08:26 Dose: 40 mg Documented by: Bisacodyl (Dulcolax) 5 mg PO DAILY PRN PRN Reason: Constipation Cetirizine HCl (Zyrtec) 10 mg PO DAILY [facility] Last Admin: 03/16/20 08:32 Dose: 10 mg Documented by: Chlorthalidone (Chlorthalidone) 12.5 mg PO DAILY [facility] Last Admin: 03/16/20 08:21 Dose: 12.5 mg Documented by: Cyclobenzaprine HCl (Flexeril) 10 mg PO BEDTIME [facility] Last Admin: 03/15/20 20:13 Dose: 10 mg Documented by: Docusate Sodium (Colace) 100 mg PO BID PRN PRN Reason: Constipation Fluticasone Propionate (Flonase) 0 gm NASBOTH DAILY PRN PRN Reason: ALLERGIES Furosemide 40 mg/ Furosemide (20 mg) 60 mg PO DAILY [facility] Last Admin: 03/16/20 08:25 Dose: 60 mg Documented by: Gabapentin (Neurontin) 300 mg PO TID [facility] Last Admin: 03/16/20 08:28 Dose: 300 mg Documented by: Piperacillin/Tazobactam/ (Dextrose 3.375 gm/ Premix) 50 mls @ 100 mls/hr IV Q6H [facility] Last Admin: 03/16/20 12:20 Dose: 100 mls/hr Documented by: Vancomycin HCl 1.6 gm/ Sodium (Chloride) 250 mls @ 166.667 mls/hr IV Q12H [facility] Last Admin: 03/16/20 09:29 Dose: 166.667 mls/hr Documented by: Insulin Human Isoph/Insulin Regular (Humulin 70-30) 5 units SUBCUT ACBREAKFAST PRN PRN Reason: Blood Glucose GREATER THAN 200 Insulin Human Lispro (Humalog) 0 unit SUBCUT QIDACANDBED [facility]; Protocol Last Admin: 03/16/20 12:12 Dose: 2 unit Documented by: Latanoprost (Xalatan 0.005% Ophth Soln) 0 ml EYEBOTH BEDTIME [facility] Last Admin: 03/15/20 20:08 Dose: 1 drop Documented by: Lorazepam (Ativan) 1 mg IV Q6H PRN PRN Reason: Nausea/Vomiting Losartan Potassium (Cozaar) 100 mg PO DAILY [facility] Last Admin: 03/16/20 08:22 Dose: 100 mg Documented by: Magnesium Oxide (Magnesium Oxide) 400 mg PO BID [facility] Last Admin: 03/16/20 08:28 Dose: 400 mg Documented by: Melatonin (Melatonin) 9 mg PO BEDTIME PRN PRN Reason: Insomnia Last Admin: 03/14/20 21:04 Dose: 9 mg Documented by: Metoprolol Succinate 50 mg/ (Metoprolol Succinate 25 mg) 75 mg PO DAILY [facility] Last Admin: 03/16/20 08:30 Dose: 75 mg Documented by: Nitroglycerin (Nitrostat) 0.4 mg SL ASDIRECTED PRN PRN Reason: Chest Pain Ondansetron HCl (Zofran Odt) 4 mg PO Q6H PRN PRN Reason: Nausea able to take PO Oxycodone HCl (Oxycodone) 10 mg PO Q4H PRN PRN Reason: Pain (moderate 4-6) Pantoprazole Sodium (Protonix) 40 mg PO ACBREAKFAST [facility] Last Admin: 03/16/20 07:59 Dose: 40 mg Documented by: Terbinafine Cream ( (Ptom)) 0 each TOP BID PRN PRN Reason: RASH Temazepam (Restoril) 15 mg PO BEDTIME PRN PRN Reason: Sleep Last Admin: 03/13/20 20:55 Dose: 15 mg Documented by: Triamcinolone Acetonide (Triamcinolone Acetonide 0.1% Crm) 0 gm TOP BID PRN PRN Reason: Rash Discontinued Medications Vancomycin HCl 1 gm/ Sodium (Chloride) 250 mls @ 150 mls/hr IV ONETIME ONE Stop: 03/13/20 18:59 Last Admin: 03/13/20 17:51 Dose: 150 mls/hr Documented by: Piperacillin Sod/Tazobactam (Sod 3.375 gm/ Sodium Chloride) 50 mls @ 100 mls/hr IV ONETIME [facility] Last Admin: 03/13/20 17:49 Dose: 100 mls/hr Documented by: Sodium Chloride (Normal Saline) 1,000 mls @ 75 mls/hr IV ASDIRECTED [facility] Last Admin: 03/14/20 02:37 Dose: 75 mls/hr Documented by: Piperacillin Sod/Tazobactam (Sod 3.375 gm/ Sodium Chloride) 50 mls @ 100 mls/hr IV Q6H [facility] Last Admin: 03/14/20 05:23 Dose: 100 mls/hr Documented by: Magnesium Oxide (Magnesium Oxide) 400 mg PO BID [facility] Non-Formulary Medication (Acetaminophen [Tylenol Arthritis]) 650 mg PO ASDIRECTED PRN PRN Reason: Pain Non-Formulary Medication (Fluticasone Propionate [Flovent Hfa]) 1 spray INH DAILY PRN PRN Reason: Allergies Non-Formulary Medication (Latanoprost/Pf [Latanoprost 0.005% Eye Drop]) 1 drop EYEBOTH DAILY [facility] Non-Formulary Medication (Magnesium Oxide [Magnesium Oxide]) 420 mg PO BID [facility] Last Admin: 03/13/20 22:34 Dose: Not Given Documented by: Non-Formulary Medication (Terbinafine Hcl [Athlete's Foot]) 1 applic TOP BID PRN PRN Reason: .infection Vancomycin HCl (Vancomycin) 1 gm IV .PHARMACY TO DOSE [facility] - Exam Quality Assessment: DVT Prophylaxis. No: Supplemental Oxygen General: Alert, Oriented, Cooperative, No Acute Distress Lungs: Clear to Auscultation, Normal Respiratory Effort Cardiovascular: Regular Rate, Regular Rhythm Skin: Warm, Dry, Intact, Other (Erythema and induration of the proximal R thigh is slightly improved. ) Sepsis Event Note - Evaluation Sepsis Screening Result: No Definite Risk - Focused Exam Vital Signs: Vital Signs Temp Pulse Pulse Resp BP BP Pulse Ox 03/16/20 08:30 79 130/64 03/16/20 08:28 130/64 03/16/20 08:22 130/64 03/16/20 07:44 97.4 F 79 28 H 130/64 91 L 03/16/20 02:05 96.7 F L 73 20 120/66 97 - Problem List Review Problem List Initiated/Reviewed/Updated: Yes - My Orders Last 24 Hours: My Active Orders 03/16/20 11:20 Communication Order [RC] PER UNIT ROUTINE 03/17/20 05:05 BASIC METABOLIC PANEL,BMP [CHEM] DAILY 03/17/20 10:28 BASIC METABOLIC PANEL,BMP [CHEM] DAILY CBC WITH AUTO DIFF [HEME] DAILY 03/18/20 05:05 BASIC METABOLIC PANEL,BMP [CHEM] DAILY 03/18/20 10:28 BASIC METABOLIC PANEL,BMP [CHEM] DAILY CBC WITH AUTO DIFF [HEME] DAILY - Plan Plan:: ASSESSMENT AND PLAN Mr. Boucher reports on Wednesday03-09-2020 notice his right leg felt heavier than usual, throbbing pain, felt feverish with chills[facility], also has a chronic ulcer to left lower leg needed evaluation. He was seen today in [place] [facility] in [place], [place]. It was recommended to go to ER for evaluation and possible admission. On exam his right noted to have dm ulcer. The Left left has redness from upper thigh to toes, skin is firm, red, edema and painful to touch. It was recommended he be admitted to hospital for further care and treatment. and Mrs. Boucher agree with plan of care. UPDATE Hospital Day #2: Patient was seen in room sitting on chair. Legs elevated when in bed, but not whilst sitting. Lymphangitic streaking c/w cellulitis noted up the medial proximal R thigh UPDATE Hospital Day #3: Patient is slightly improved this AM. Erythema is slightly improved. Tolerating atbx well. CELLULITIS- right leg, slowly improving. Adding warm compresses to regime for possible symptom improvement. -Zosyn 3.375 g IV every 6 hours -Vancomycin 1 gram IV every 12 hours -blood cultures x 2 -consult to [facility]ound Clinic for evaluation of diabetic ulcer left lower leg -Daily -- labs CBC, BMP -Elevate RLE, bilateral edema wraps Atrial fibrillation- chronic. Vital signs otherwise stable. -Eliquis 5 mg po bid -continue outpatient medications Diabetes Type 2 -Insulin 70/30 give 5 units daily for blood glucose over 200 -Insulin short acting low dose sliding scale coverage -Blood glucose testing before meals and at bedtime MAINTENANCE ISSUES -DVT prophylaxis- Eliquist 5mg po bid -GI prophylaxis- Prilosec 40 mg po daily -Jeffers catheter- not indicated -Nutrition- consistent carb diet -Nicotine dependence- non-smoker -Spiritual consult -PT consult for ambulation CODE STATUS-FULL CODE ADMISSION STATUS-patient will be admitted to inpatient status, expect at least a 2 night hospital stay for evaluation and management of problems as outlined above. At the time of this admission I do not reasonably expected evaluation and management of this problem will require more than a 96 hour hospital stay. DISPOSITION-anticipate discharge to home after the hospital stay. PRIMARY CARE PROVIDER-[facility] HOSPITALIST- Dr. Solis
[2020-03-16] MEDS: Cyclobenzaprine 10 MG Tab PO SCH (20:57)
[2020-03-16] MEDS: Latanoprost 0.005% Ophth Soln 2.5 ML Bottle EYEBOTH SCH (20:58)
[2020-03-17] MEDS: Piperacillin/Tazobactam/Dext 3.375 GM in Premix Bag 1 BAG IV SCH ×4 (00:38→17:19)
[2020-03-17] MEDS: Pantoprazole 40 MG Tab.CR PO SCH (07:29)
[2020-03-17] MEDS: Insulin Lispro 100 Unit/ML 3 ML KwikPen SUBCUT SCH ×4 (08:04→22:16)
[2020-03-17] MEDS: Chlorthalidone 25 MG Tab PO SCH (09:24)
[2020-03-17] MEDS: Losartan 50 MG Tab PO SCH (09:27)
[2020-03-17] MEDS: Apixaban 5 MG Tab PO SCH ×2 (09:28→22:19)
[2020-03-17] MEDS: Furosemide 40 MG, Furosemide 20 MG PO SCH ×2 (09:29)
[2020-03-17] MEDS: Aspirin 81 MG Tab.EC PO SCH (09:29)
[2020-03-17] MEDS: Magnesium Oxide 400 MG Tab PO SCH ×2 (09:32→22:19)
[2020-03-17] MEDS: atorvaSTATin 20 MG Tab PO SCH (09:32)
[2020-03-17] MEDS: Gabapentin 300 MG Cap PO SCH ×3 (09:33→22:18)
[2020-03-17] MEDS: amLODIPine 5 MG Tab PO SCH (09:34)
[2020-03-17] MEDS: Acetaminophen 500 MG Tab PO SCH ×4 (09:42→22:19)
[2020-03-17] MEDS: Cetirizine 10 MG Tab PO SCH (09:44)
[2020-03-17] MEDS: Vancomycin 1.6 GM in Sodium Chloride 0.9% 250 ML IV SCH ×2 (09:49→20:20)
--- NOTE | 2020-03-17 13:31 | PCM.PN ---
- General Info Date of Service: 03/17/20 Admission Dx/Problem (Free Text): 1. Cellulitis Subjective Update: Patient is stable, doing better overall. Ambulating without difficulties and pain free. The patient has some improvement in the cellulitis, with reduced induration and erythema. Functional Status: Reports: Pain Controlled, Tolerating Diet - Review of Systems General: Reports: No Symptoms HEENT: Reports: No Symptoms Pulmonary: Reports: No Symptoms Cardiovascular: Reports: No Symptoms Gastrointestinal: Reports: No Symptoms Skin: Reports: Other (induration, erythema improving) - Patient Data Vitals - Most Recent: Last Vital Signs Temp 96.7 F L 03/17/20 12:34 Pulse 65 03/17/20 12:34 Resp 16 03/17/20 12:34 BP 119/61 03/17/20 12:34 Pulse Ox 95 03/17/20 12:34 Weight - Most Recent: 244 lb 7.988 oz I&O - Last 24 Hours: Intake & Output 03/16/20 03/17/20 03/17/20 22:59 06:59 14:59 Intake Total 50 250 Output Total 500 400 100 Balance -500 -350 150 Lab Results Last 24 Hours: Laboratory Results - last 24 hr 03/16/20 03/16/20 03/17/20 Range/Units 16:43 21:00 05:47 WBC 6.9 (4.5-11.0) K/uL RBC 4.59 (4.30-5.90) M/uL Hgb 11.0 L (12.0-15.0) g/dL Hct 36.7 L (40.0-54.0) % MCV 80 (80-98) fL MCH 24 L (27-31) pg MCHC 30 L (32-36) % Plt Count 363 (150-400) K/uL Neut % (Auto) 73 H (36-66) % Lymph % (Auto) 14 L (24-44) % [place] % (Auto) 9 H (2-6) % Eos % (Auto) 4 (2-4) % Baso % (Auto) 1 (0-1) % Sodium (140-148) mmol/L Potassium (3.6-5.2) mmol/L Chloride (100-108) mmol/L Carbon Dioxide (21-32) mmol/L Anion Gap (5.0-14.0) mmol/L BUN (7-18) mg/dL Creatinine (0.8-1.3) mg/dL Est Cr Clr Drug Dosing mL/min Estimated GFR (MDRD) (>60) Glucose (74-106) mg/dL POC Glucose 206 H 246 H (74-106) MG/DL Calcium (8.5-10.1) mg/dL 03/17/20 03/17/20 03/17/20 Range/Units 05:47 07:30 11:30 WBC (4.5-11.0) K/uL RBC (4.30-5.90) M/uL Hgb (12.0-15.0) g/dL Hct (40.0-54.0) % MCV (80-98) fL MCH (27-31) pg MCHC (32-36) % Plt Count (150-400) K/uL Neut % (Auto) (36-66) % Lymph % (Auto) (24-44) % [place] % (Auto) (2-6) % Eos % (Auto) (2-4) % Baso % (Auto) (0-1) % Sodium 136 L (140-148) mmol/L Potassium 4.2 (3.6-5.2) mmol/L Chloride 100 (100-108) mmol/L Carbon Dioxide 27 (21-32) mmol/L Anion Gap 13.2 (5.0-14.0) mmol/L BUN 16 (7-18) mg/dL Creatinine 0.9 (0.8-1.3) mg/dL Est Cr Clr Drug Dosing 78.70 mL/min Estimated GFR (MDRD) > 60 (>60) Glucose 190 H (74-106) mg/dL POC Glucose 196 H 214 H (74-106) MG/DL Calcium 8.3 L (8.5-10.1) mg/dL Jhonny Results Last 24 Hours: Microbiology 03/13/20 17:04 Aerobic Blood Culture - Preliminary Blood - Venous NO GROWTH AFTER 3 DAYS Anaerobic Blood Culture - Preliminary NO GROWTH AFTER 3 DAYS 03/13/20 17:12 Aerobic Blood Culture - Preliminary Blood - Arm, Right NO GROWTH AFTER 3 DAYS Anaerobic Blood Culture - Preliminary NO GROWTH AFTER 3 DAYS Med Orders - Current: Current Medications Acetaminophen (Tylenol) 650 mg PO Q4H PRN PRN Reason: Pain (Mild 1-3)/fever Last Admin: 03/14/20 11:18 Dose: 650 mg Documented by: Acetaminophen (Tylenol Extra Strength) 1,000 mg PO TID [facility] Last Admin: 03/17/20 09:56 Dose: 1,000 mg Documented by: Albuterol (Proventil Neb Soln) 2.5 mg NEB Q4H PRN PRN Reason: Shortness Of Breath/wheezing Amlodipine Besylate (Norvasc) 10 mg PO DAILY [facility] Last Admin: 03/17/20 09:34 Dose: 10 mg Documented by: Apixaban (Eliquis) 5 mg PO BID [facility] Last Admin: 03/17/20 09:28 Dose: 5 mg Documented by: Aspirin (Halfprin) 81 mg PO DAILY [facility] Last Admin: 03/17/20 09:29 Dose: 81 mg Documented by: Atorvastatin Calcium (Lipitor) 40 mg PO DAILY [facility] Last Admin: 03/17/20 09:32 Dose: 40 mg Documented by: Bisacodyl (Dulcolax) 5 mg PO DAILY PRN PRN Reason: Constipation Cetirizine HCl (Zyrtec) 10 mg PO DAILY [facility] Last Admin: 03/17/20 09:44 Dose: 10 mg Documented by: Chlorthalidone (Chlorthalidone) 12.5 mg PO DAILY [facility] Last Admin: 03/17/20 09:24 Dose: 12.5 mg Documented by: Cyclobenzaprine HCl (Flexeril) 10 mg PO BEDTIME [facility] Last Admin: 03/16/20 20:57 Dose: 10 mg Documented by: Docusate Sodium (Colace) 100 mg PO BID PRN PRN Reason: Constipation Fluticasone Propionate (Flonase) 0 gm NASBOTH DAILY PRN PRN Reason: ALLERGIES Furosemide 40 mg/ Furosemide (20 mg) 60 mg PO DAILY [facility] Last Admin: 03/17/20 09:29 Dose: 60 mg Documented by: Gabapentin (Neurontin) 300 mg PO TID [facility] Last Admin: 03/17/20 09:33 Dose: 300 mg Documented by: Piperacillin/Tazobactam/ (Dextrose 3.375 gm/ Premix) 50 mls @ 100 mls/hr IV Q6H [facility] Last Admin: 03/17/20 13:13 Dose: 100 mls/hr Documented by: Vancomycin HCl 1.6 gm/ Sodium (Chloride) 250 mls @ 166.667 mls/hr IV Q12H [facility] Last Admin: 03/17/20 09:49 Dose: 166.667 mls/hr Documented by: Insulin Human Isoph/Insulin Regular (Humulin 70-30) 5 units SUBCUT ACBREAKFAST PRN PRN Reason: Blood Glucose GREATER THAN 200 Insulin Human Lispro (Humalog) 0 unit SUBCUT QIDACANDBED [facility]; Protocol Last Admin: 03/17/20 12:19 Dose: 2 unit Documented by: Latanoprost (Xalatan 0.005% Ophth Soln) 0 ml EYELF BEDTIME [facility] Lorazepam (Ativan) 1 mg IV Q6H PRN PRN Reason: Nausea/Vomiting Losartan Potassium (Cozaar) 100 mg PO DAILY [facility] Last Admin: 03/17/20 09:27 Dose: 100 mg Documented by: Magnesium Oxide (Magnesium Oxide) 400 mg PO BID [facility] Last Admin: 03/17/20 09:32 Dose: 400 mg Documented by: Melatonin (Melatonin) 9 mg PO BEDTIME PRN PRN Reason: Insomnia Last Admin: 03/14/20 21:04 Dose: 9 mg Documented by: Metoprolol Succinate 50 mg/ (Metoprolol Succinate 25 mg) 75 mg PO DAILY [facility] Last Admin: 03/17/20 09:36 Dose: 75 mg Documented by: Nitroglycerin (Nitrostat) 0.4 mg SL ASDIRECTED PRN PRN Reason: Chest Pain Ondansetron HCl (Zofran Odt) 4 mg PO Q6H PRN PRN Reason: Nausea able to take PO Oxycodone HCl (Oxycodone) 10 mg PO Q4H PRN PRN Reason: Pain (moderate 4-6) Pantoprazole Sodium (Protonix) 40 mg PO ACBREAKFAST [facility] Last Admin: 03/17/20 07:29 Dose: 40 mg Documented by: Terbinafine Cream ( (Ptom)) 0 each TOP BID PRN PRN Reason: RASH Temazepam (Restoril) 15 mg PO BEDTIME PRN PRN Reason: Sleep Last Admin: 03/13/20 20:55 Dose: 15 mg Documented by: Triamcinolone Acetonide (Triamcinolone Acetonide 0.1% Crm) 0 gm TOP BID PRN PRN Reason: Rash Discontinued Medications Vancomycin HCl 1 gm/ Sodium (Chloride) 250 mls @ 150 mls/hr IV ONETIME ONE Stop: 03/13/20 18:59 Last Admin: 03/13/20 17:51 Dose: 150 mls/hr Documented by: Piperacillin Sod/Tazobactam (Sod 3.375 gm/ Sodium Chloride) 50 mls @ 100 mls/hr IV ONETIME [facility] Last Admin: 03/13/20 17:49 Dose: 100 mls/hr Documented by: Sodium Chloride (Normal Saline) 1,000 mls @ 75 mls/hr IV ASDIRECTED [facility] Last Admin: 03/14/20 02:37 Dose: 75 mls/hr Documented by: Piperacillin Sod/Tazobactam (Sod 3.375 gm/ Sodium Chloride) 50 mls @ 100 mls/hr IV Q6H [facility] Last Admin: 03/14/20 05:23 Dose: 100 mls/hr Documented by: Latanoprost (Xalatan 0.005% Ophth Soln) 0 ml EYEBOTH BEDTIME [facility] Last Admin: 03/16/20 20:58 Dose: 1 drop Documented by: Magnesium Oxide (Magnesium Oxide) 400 mg PO BID [facility] Non-Formulary Medication (Acetaminophen [Tylenol Arthritis]) 650 mg PO ASDIRECTED PRN PRN Reason: Pain Non-Formulary Medication (Fluticasone Propionate [Flovent Hfa]) 1 spray INH DAILY PRN PRN Reason: Allergies Non-Formulary Medication (Latanoprost/Pf [Latanoprost 0.005% Eye Drop]) 1 drop EYEBOTH DAILY [facility] Non-Formulary Medication (Magnesium Oxide [Magnesium Oxide]) 420 mg PO BID [facility] Last Admin: 03/13/20 22:34 Dose: Not Given Documented by: Non-Formulary Medication (Terbinafine Hcl [Athlete's Foot]) 1 applic TOP BID PRN PRN Reason: .infection Vancomycin HCl (Vancomycin) 1 gm IV .PHARMACY TO DOSE [facility] - Exam Quality Assessment: DVT Prophylaxis General: Alert, Oriented, Cooperative, No Acute Distress Lungs: Clear to Auscultation, Normal Respiratory Effort Cardiovascular: Regular Rate, Regular Rhythm, No Murmurs GI/Abdominal Exam: Normal Bowel Sounds Skin: Other (Erythema, induration starting to recede) Sepsis Event Note - Evaluation Sepsis Screening Result: No Definite Risk - Focused Exam Vital Signs: Vital Signs Temp Pulse Pulse Resp BP BP Pulse Ox 03/17/20 12:34 96.7 F L 65 16 119/61 95 03/17/20 09:36 68 134/63 03/17/20 09:34 134/63 03/17/20 09:27 134/63 03/17/20 07:39 96.3 F L 84 19 134/63 98 03/17/20 03:28 95.6 F L 62 18 135/60 94 L - Problem List Review Problem List Initiated/Reviewed/Updated: Yes - My Orders Last 24 Hours: My Active Orders 03/17/20 21:00 Latanoprost [Xalatan 0.005% Ophth Soln] 0 ml EYELF BEDTIME 03/18/20 05:05 BASIC METABOLIC PANEL,BMP [CHEM] DAILY 03/18/20 10:28 BASIC METABOLIC PANEL,BMP [CHEM] DAILY CBC WITH AUTO DIFF [HEME] DAILY - Plan Plan:: ASSESSMENT AND PLAN Mr. Boucher reports on Wednesday03-09-2020 notice his right leg felt heavier than usual, throbbing pain, felt feverish with chills. [facility], also has a chronic ulcer to left lower leg n eeded evaluation. He was seen today in [facility] in [place], [place]. It was recommended to go to ER for evaluation and possible admission. On exam his right noted to have dm ulcer. The Left left has redness from upper thigh to toes, skin is firm, red, edema and painful to touch. It was recommended he be admitted to hospital for further care and treatment. and Mrs. Boucher agree with plan of care. UPDATE Hospital Day #2: Patient was seen in room sitting on chair. Legs elevated when in bed, but not whilst sitting. Lymphangitic streaking c/w cellulitis noted up the medial proximal R thigh UPDATE Hospital Day #3: Patient is slightly improved this AM. Erythema is slightly improved. Tolerating atbx well. Hospital Day #4 Patient continuing to improve with declines in the induration. CELLULITIS- right leg, slowly improving. Adding warm compresses to regime for possible symptom improvement. -Zosyn 3.375 g IV every 6 hours -Vancomycin 1 gram IV every 12 hours -blood cultures x 2 -consult to Wound Clinic for evaluation of diabetic ulcer left lower leg -Daily -- labs CBC, BMP -Elevate RLE, bilateral edema wraps Atrial fibrillation- chronic. Vital signs otherwise stable. -Eliquis 5 mg po bid -continue outpatient medications Diabetes Type 2 -Insulin 70/30 give 5 units daily for blood glucose over 200 -Insulin short acting low dose sliding scale coverage -Blood glucose testing before meals and at bedtime MAINTENANCE ISSUES -DVT prophylaxis- Eliquist 5mg po bid -GI prophylaxis- Prilosec 40 mg po daily -Jeffers catheter- not indicated -Nutrition- consistent carb diet -Nicotine dependence- non-smoker -Spiritual consult -PT consult for ambulation CODE STATUS-FULL CODE ADMISSION STATUS-patient will be admitted to inpatient status, expect at least a 2 night hospital stay for evaluation and management of problems as outlined above. At the time of this admission I do not reasonably expected evaluation and management of this problem will require more than a 96 hour hospital stay. DISPOSITION-anticipate discharge to home after the hospital stay. [facility] HOSPITAL[facility]- Dr. Solis
[2020-03-17] MEDS: Fluticasone Propionate Nasal Spray 16 GM Bottle NASBOTH PRN (13:47)
[2020-03-17] MEDS: Latanoprost 0.005% Ophth Soln 2.5 ML Bottle EYELF SCH (22:18)
[2020-03-17] MEDS: Cyclobenzaprine 10 MG Tab PO SCH (22:19)
[2020-03-18] MEDS: Piperacillin/Tazobactam/Dext 3.375 GM in Premix Bag 1 BAG IV SCH ×4 (00:19→17:24)
[2020-03-18] MEDS: Fluticasone Propionate Nasal Spray 16 GM Bottle NASBOTH PRN (07:44)
[2020-03-18] MEDS: Pantoprazole 40 MG Tab.CR PO SCH (07:45)
[2020-03-18] MEDS: Vancomycin 1.6 GM in Sodium Chloride 0.9% 250 ML IV SCH (07:55)
[2020-03-18] MEDS: Insulin Lispro 100 Unit/ML 3 ML KwikPen SUBCUT SCH ×4 (08:45→21:05)
[2020-03-18] MEDS: Chlorthalidone 25 MG Tab PO SCH (08:47)
[2020-03-18] MEDS: Gabapentin 300 MG Cap PO SCH ×3 (08:48→20:01)
[2020-03-18] MEDS: Losartan 50 MG Tab PO SCH (08:48)
[2020-03-18] MEDS: Aspirin 81 MG Tab.EC PO SCH (08:49)
[2020-03-18] MEDS: Magnesium Oxide 400 MG Tab PO SCH ×2 (08:49→20:01)
[2020-03-18] MEDS: atorvaSTATin 20 MG Tab PO SCH (08:49)
[2020-03-18] MEDS: Furosemide 40 MG, Furosemide 20 MG PO SCH ×2 (08:49)
[2020-03-18] MEDS: amLODIPine 5 MG Tab PO SCH (08:50)
[2020-03-18] MEDS: Acetaminophen 500 MG Tab PO SCH ×3 (08:51→20:01)
[2020-03-18] MEDS: Cetirizine 10 MG Tab PO SCH (08:51)
[2020-03-18] MEDS: Apixaban 5 MG Tab PO SCH ×2 (08:51→20:01)
[2020-03-18] MEDS ORDERED: Furosemide 40 MG/4 ML VIAL IVPUSH ONE (16:00)
--- NOTE | 2020-03-18 16:55 | PCM.PN ---
- General Info Date of Service: 03/18/20 Subjective Update: Mr. Boucher was admitted last week with cellulitis of his right lower extremity. Cellulitis has improved significantly but not totally resolved with a residual area of erythema noted in the right medial and inferior thigh. Vital signs have been stable and he has remained afebrile. Has significant edema noted in both lower extremities. Functional Status: Reports: Tolerating Diet, Ambulating, Urinating - Review of Systems General: Reports: Weakness, Fatigue. Denies: Fever, Chills Pulmonary: Reports: No Symptoms Cardiovascular: Reports: No Symptoms Gastrointestinal: Reports: No Symptoms Skin: Reports: Other (Erythema right medial and posterior thigh with tenderness to palpation) - Patient Data Vitals - Most Recent: Last Vital Signs Temp 95.6 F L 03/18/20 15:18 Pulse 65 03/18/20 15:18 Resp 16 03/18/20 15:18 BP 118/70 03/18/20 15:18 Pulse Ox 97 03/18/20 15:18 Weight - Most Recent: 244 lb 7.988 oz I&O - Last 24 Hours: Intake & Output 03/18/20 03/18/20 03/18/20 06:59 14:59 22:59 Intake Total 450 Output Total 350 400 Balance 100 -400 Lab Results Last 24 Hours: Laboratory Results - last 24 hr 03/17/20 03/18/20 03/18/20 Range/Units 21:00 04:20 04:20 WBC 7.6 (4.5-11.0) K/uL RBC 4.35 (4.30-5.90) M/uL Hgb 10.6 L (12.0-15.0) g/dL Hct 34.9 L (40.0-54.0) % MCV 80 (80-98) fL MCH 24 L (27-31) pg MCHC 30 L (32-36) % Plt Count 384 (150-400) K/uL Neut % (Auto) 74 H (36-66) % Lymph % (Auto) 13 L (24-44) % [place] % (Auto) 10 H (2-6) % Eos % (Auto) 3 (2-4) % Baso % (Auto) 1 (0-1) % Sodium 135 L (140-148) mmol/L Potassium 4.2 (3.6-5.2) mmol/L Chloride 100 (100-108) mmol/L Carbon Dioxide 27 (21-32) mmol/L Anion Gap 12.2 (5.0-14.0) mmol/L BUN 12 (7-18) mg/dL Creatinine 1.0 (0.8-1.3) mg/dL Est Cr Clr Drug Dosing 70.83 mL/min Estimated GFR (MDRD) > 60 (>60) Glucose 191 H (74-106) mg/dL POC Glucose 225 H (74-106) MG/DL Calcium 8.2 L (8.5-10.1) mg/dL 03/18/20 03/18/20 03/18/20 Range/Units 07:30 11:30 16:41 WBC (4.5-11.0) K/uL RBC (4.30-5.90) M/uL Hgb (12.0-15.0) g/dL Hct (40.0-54.0) % MCV (80-98) fL MCH (27-31) pg MCHC (32-36) % Plt Count (150-400) K/uL Neut % (Auto) (36-66) % Lymph % (Auto) (24-44) % [place] % (Auto) (2-6) % Eos % (Auto) (2-4) % Baso % (Auto) (0-1) % Sodium (140-148) mmol/L Potassium (3.6-5.2) mmol/L Chloride (100-108) mmol/L Carbon Dioxide (21-32) mmol/L Anion Gap (5.0-14.0) mmol/L BUN (7-18) mg/dL Creatinine (0.8-1.3) mg/dL Est Cr Clr Drug Dosing mL/min Estimated GFR (MDRD) (>60) Glucose (74-106) mg/dL POC Glucose 266 H 185 H 185 H (74-106) MG/DL Calcium (8.5-10.1) mg/dL Jhonny Results Last 24 Hours: Microbiology 03/13/20 17:12 Aerobic Blood Culture - Preliminary Blood - Arm, Right NO GROWTH AFTER 4 DAYS Anaerobic Blood Culture - Preliminary NO GROWTH AFTER 4 DAYS 03/13/20 17:04 Aerobic Blood Culture - Preliminary Blood - Venous NO GROWTH AFTER 4 DAYS Anaerobic Blood Culture - Preliminary NO GROWTH AFTER 4 DAYS Med Orders - Current: Current Medications Acetaminophen (Tylenol) 650 mg PO Q4H PRN PRN Reason: Pain (Mild 1-3)/fever Last Admin: 03/14/20 11:18 Dose: 650 mg Documented by: Acetaminophen (Tylenol Extra Strength) 1,000 mg PO TID [facility] Last Admin: 03/18/20 15:01 Dose: 1,000 mg Documented by: Albuterol (Proventil Neb Soln) 2.5 mg NEB Q4H PRN PRN Reason: Shortness Of Breath/wheezing Amlodipine Besylate (Norvasc) 10 mg PO DAILY [facility] Last Admin: 03/18/20 08:50 Dose: 10 mg Documented by: Apixaban (Eliquis) 5 mg PO BID [facility] Last Admin: 03/18/20 08:51 Dose: 5 mg Documented by: Aspirin (Halfprin) 81 mg PO DAILY [facility] Last Admin: 03/18/20 08:49 Dose: 81 mg Documented by: Atorvastatin Calcium (Lipitor) 40 mg PO DAILY [facility] Last Admin: 03/18/20 08:49 Dose: 40 mg Documented by: Bisacodyl (Dulcolax) 5 mg PO DAILY PRN PRN Reason: Constipation Cetirizine HCl (Zyrtec) 10 mg PO DAILY [facility] Last Admin: 03/18/20 08:51 Dose: 10 mg Documented by: Chlorthalidone (Chlorthalidone) 12.5 mg PO DAILY [facility] Last Admin: 03/18/20 08:47 Dose: 12.5 mg Documented by: Cyclobenzaprine HCl (Flexeril) 10 mg PO BEDTIME [facility] Last Admin: 03/17/20 22:19 Dose: 10 mg Documented by: Docusate Sodium (Colace) 100 mg PO BID PRN PRN Reason: Constipation Fluticasone Propionate (Flonase) 0 gm NASBOTH DAILY PRN PRN Reason: ALLERGIES Last Admin: 03/18/20 07:44 Dose: 1 spray Documented by: Gabapentin (Neurontin) 300 mg PO TID [facility] Last Admin: 03/18/20 15:01 Dose: 300 mg Documented by: Piperacillin/Tazobactam/ (Dextrose 3.375 gm/ Premix) 50 mls @ 100 mls/hr IV Q6H [facility] Last Admin: 03/18/20 12:26 Dose: 100 mls/hr Documented by: Insulin Human Isoph/Insulin Regular (Humulin 70-30) 5 units SUBCUT ACBREAKFAST PRN PRN Reason: Blood Glucose GREATER THAN 200 Insulin Human Lispro (Humalog) 0 unit SUBCUT QIDACANDBED [facility]; Protocol Last Admin: 03/18/20 12:25 Dose: 1 unit Documented by: Latanoprost (Xalatan 0.005% Ophth Soln) 0 ml EYELF BEDTIME [facility] Last Admin: 03/17/20 22:18 Dose: 1 drop Documented by: Lorazepam (Ativan) 1 mg IV Q6H PRN PRN Reason: Nausea/Vomiting Losartan Potassium (Cozaar) 100 mg PO DAILY [facility] Last Admin: 03/18/20 08:48 Dose: 100 mg Documented by: Magnesium Oxide (Magnesium Oxide) 400 mg PO BID [facility] Last Admin: 03/18/20 08:49 Dose: 400 mg Documented by: Melatonin (Melatonin) 9 mg PO BEDTIME PRN PRN Reason: Insomnia Last Admin: 03/14/20 21:04 Dose: 9 mg Documented by: Metoprolol Succinate 50 mg/ (Metoprolol Succinate 25 mg) 75 mg PO DAILY [facility] Last Admin: 03/18/20 08:50 Dose: 75 mg Documented by: Nitroglycerin (Nitrostat) 0.4 mg SL ASDIRECTED PRN PRN Reason: Chest Pain Ondansetron HCl (Zofran Odt) 4 mg PO Q6H PRN PRN Reason: Nausea able to take PO Oxycodone HCl (Oxycodone) 10 mg PO Q4H PRN PRN Reason: Pain (moderate 4-6) Pantoprazole Sodium (Protonix) 40 mg PO ACBREAKFAST [facility] Last Admin: 03/18/20 07:45 Dose: 40 mg Documented by: Terbinafine Cream ( (Ptom)) 0 each TOP BID PRN PRN Reason: RASH Temazepam (Restoril) 15 mg PO BEDTIME PRN PRN Reason: Sleep Last Admin: 03/13/20 20:55 Dose: 15 mg Documented by: Triamcinolone Acetonide (Triamcinolone Acetonide 0.1% Crm) 0 gm TOP BID PRN PRN Reason: Rash Discontinued Medications Furosemide 40 mg/ Furosemide (20 mg) 60 mg PO DAILY [facility] Last Admin: 03/18/20 08:49 Dose: 60 mg Documented by: Furosemide (Lasix) 40 mg IVPUSH NOW ONE Stop: 03/18/20 16:01 Vancomycin HCl 1 gm/ Sodium (Chloride) 250 mls @ 150 mls/hr IV ONETIME ONE Stop: 03/13/20 18:59 Last Admin: 03/13/20 17:51 Dose: 150 mls/hr Documented by: Piperacillin Sod/Tazobactam (Sod 3.375 gm/ Sodium Chloride) 50 mls @ 100 mls/hr IV ONETIME [facility] Last Admin: 03/13/20 17:49 Dose: 100 mls/hr Documented by: Sodium Chloride (Normal Saline) 1,000 mls @ 75 mls/hr IV ASDIRECTED [facility] Last Admin: 03/14/20 02:37 Dose: 75 mls/hr Documented by: Piperacillin Sod/Tazobactam (Sod 3.375 gm/ Sodium Chloride) 50 mls @ 100 mls/hr IV Q6H [facility] Last Admin: 03/14/20 05:23 Dose: 100 mls/hr Documented by: Vancomycin HCl 1.6 gm/ Sodium (Chloride) 250 mls @ 166.667 mls/hr IV Q12H [facility] Last Admin: 03/18/20 07:55 Dose: 166.667 mls/hr Documented by: Latanoprost (Xalatan 0.005% Ophth Soln) 0 ml EYEBOTH BEDTIME [facility] Last Admin: 03/16/20 20:58 Dose: 1 drop Documented by: Magnesium Oxide (Magnesium Oxide) 400 mg PO BID [facility] Non-Formulary Medication (Acetaminophen [Tylenol Arthritis]) 650 mg PO A SDIRECTED PRN PRN Reason: Pain Non-Formulary Medication (Fluticasone Propionate [Flovent Hfa]) 1 spray INH DAILY PRN PRN Reason: Allergies Non-Formulary Medication (Latanoprost/Pf [Latanoprost 0.005% Eye Drop]) 1 drop EYEBOTH DAILY [facility] Non-Formulary Medication (Magnesium Oxide [Magnesium Oxide]) 420 mg PO BID [facility] Last Admin: 03/13/20 22:34 Dose: Not Given Documented by: Non-Formulary Medication (Terbinafine Hcl [Athlete's Foot]) 1 applic TOP BID PRN PRN Reason: .infection Vancomycin HCl (Vancomycin) 1 gm IV .PHARMACY TO DOSE [place] - Exam Quality Assessment: DVT Prophylaxis General: Alert, Oriented, Cooperative, Mild Distress Lungs: Clear to Auscultation, Normal Respiratory Effort Cardiovascular: Regular Rate, Regular Rhythm, No Murmurs GI/Abdominal Exam: Soft, Non-Tender, No Organomegaly, No Distention Skin: Other (Erythema right medial and posterior thigh) Sepsis Event Note - Evaluation Sepsis Screening Result: No Definite Risk - Focused Exam Vital Signs: Vital Signs Temp Pulse Pulse Resp BP BP Pulse Ox 03/18/20 15:18 95.6 F L 65 16 118/70 97 03/18/20 12:37 97.1 F 110 H 18 118/65 98 03/18/20 08:50 70 135/69 03/18/20 08:48 135/69 03/18/20 07:47 96.9 F 70 18 135/69 95 - Problem List Review Problem List Initiated/Reviewed/Updated: Yes - My Orders Last 24 Hours: My Active Orders 03/19/20 05:00 BASIC METABOLIC PANEL,BMP [CHEM] Timed - Plan Plan:: ASSESSMENT AND PLAN CELLULITIS- right leg, slowly improving. Adding warm compresses to regime for possible symptom improvement. -Zosyn 3.375 g IV every 6 hours -Discontinue vancomycin -blood cultures x 2 -consult to [facility] for evaluation of diabetic ulcer left lower leg -Elevate RLE, bilateral edema wraps Atrial fibrillation- chronic. Vital signs otherwise stable. -Eliquis 5 mg po bid -continue outpatient medications Diabetes Type 2 -Insulin 70/30 give 5 units daily for blood glucose over 200 -Insulin short acting low dose sliding scale coverage -Blood glucose testing before meals and at bedtime Peripheral edema -Hold oral furosemide -IV furosemide twice daily MAINTENANCE ISSUES -DVT prophylaxis- Eliquist 5mg po bid -GI prophylaxis- Prilosec 40 mg po daily -Jeffers catheter- not indicated -Nutrition- consistent carb diet -Nicotine dependence- non-smoker -Spiritual consult -PT consult for ambulation CODE STATUS-FULL CODE ADMISSION STATUS-patient will be admitted to inpatient status, expect at least a 2 night hospital stay for evaluation and management of problems as outlined above. At the time of this admission I do not reasonably expected evaluation and management of this problem will require more than a 96 hour hospital stay. DISPOSITION-anticipate discharge to home after the hospital stay. PRIMARY CARE PROVIDER-[facility]
[2020-03-18] MEDS: Cyclobenzaprine 10 MG Tab PO SCH (20:01)
[2020-03-18] MEDS: Latanoprost 0.005% Ophth Soln 2.5 ML Bottle EYELF SCH (20:01)
[2020-03-18] MEDS: Melatonin 3 MG Tab PO PRN (21:05)
[2020-03-19] MEDS: Piperacillin/Tazobactam/Dext 3.375 GM in Premix Bag 1 BAG IV SCH ×5 (00:52→23:05)
[2020-03-19] MEDS: Pantoprazole 40 MG Tab.CR PO SCH (07:32)
[2020-03-19] MEDS: Insulin Lispro 100 Unit/ML 3 ML KwikPen SUBCUT SCH ×4 (07:34→20:56)
[2020-03-19] MEDS: Losartan 50 MG Tab PO SCH (08:10)
[2020-03-19] MEDS: amLODIPine 5 MG Tab PO SCH (08:10)
[2020-03-19] MEDS: Chlorthalidone 25 MG Tab PO SCH (08:10)
[2020-03-19] MEDS: Gabapentin 300 MG Cap PO SCH ×3 (08:10→20:32)
[2020-03-19] MEDS: Apixaban 5 MG Tab PO SCH ×2 (08:10→20:32)
[2020-03-19] MEDS: atorvaSTATin 20 MG Tab PO SCH (08:11)
[2020-03-19] MEDS: Aspirin 81 MG Tab.EC PO SCH (08:11)
[2020-03-19] MEDS: Cetirizine 10 MG Tab PO SCH (08:11)
[2020-03-19] MEDS: Magnesium Oxide 400 MG Tab PO SCH ×2 (08:11→20:32)
[2020-03-19] MEDS: Acetaminophen 500 MG Tab PO SCH ×3 (08:12→20:32)
[2020-03-19] MEDS ORDERED: Furosemide 40 MG/4 ML VIAL IVPUSH ONE ×2 (08:45→17:00)
--- NOTE | 2020-03-19 12:26 | PCM.PN ---
- General Info Date of Service: 03/19/20 Subjective Update: Mr. Boucher was admitted last week with cellulitis of his right lower extremity from his thigh down through his entire foot and toes. 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 His bilateral lower extremity edema is also improving with diuresis therapy and compression therapy, but he does continue to have pitting edema. He remains afebrile and VS remain stable. Functional Status: Reports: Pain Controlled - Review of Systems General: Reports: No Symptoms HEENT: Reports: No Symptoms Pulmonary: Reports: No Symptoms Cardiovascular: Reports: No Symptoms Gastrointestinal: Reports: No Symptoms Genitourinary: Reports: No Symptoms Musculoskeletal: Reports: Leg Pain Skin: Reports: Other (itching to remaining erythemic area on right medial i nferior thigh) Neurological: Reports: No Symptoms Psychiatric: Reports: No Symptoms - Patient Data Vitals - Most Recent: Last Vital Signs Temp 96.4 F L 03/19/20 11:48 Pulse 71 03/19/20 11:48 Resp 16 03/19/20 11:48 BP 96/48 L 03/19/20 11:48 Pulse Ox 93 L 03/19/20 11:48 Weight - Most Recent: 244 lb 7.988 oz I&O - Last 24 Hours: Intake & Output 03/18/20 03/19/20 03/19/20 22:59 06:59 14:59 Intake Total 50 750 Output Total 1525 900 250 Balance -1475 -150 -250 Lab Results Last 24 Hours: Laboratory Results - last 24 hr 03/18/20 03/18/20 03/19/20 Range/Units 16:41 20:24 06:02 Sodium 137 L (140-148) mmol/L Potassium 4.1 (3.6-5.2) mmol/L Chloride 100 (100-108) mmol/L Carbon Dioxide 29 (21-32) mmol/L Anion Gap 12.1 (5.0-14.0) mmol/L BUN 11 (7-18) mg/dL Creatinine 1.0 (0.8-1.3) mg/dL Est Cr Clr Drug Dosing 70.83 mL/min Estimated GFR (MDRD) > 60 (>60) Glucose 171 H (74-106) mg/dL POC Glucose 185 H 249 H (74-106) MG/DL Calcium 8.5 (8.5-10.1) mg/dL 03/19/20 03/19/20 Range/Units 07:30 11:30 Sodium (140-148) mmol/L Potassium (3.6-5.2) mmol/L Chloride (100-108) mmol/L Carbon Dioxide (21-32) mmol/L Anion Gap (5.0-14.0) mmol/L BUN (7-18) mg/dL Creatinine (0.8-1.3) mg/dL Est Cr Clr Drug Dosing mL/min Estimated GFR (MDRD) (>60) Glucose (74-106) mg/dL POC Glucose 170 H 235 H (74-106) MG/DL Calcium (8.5-10.1) mg/dL Jhonny Results Last 24 Hours: Microbiology 03/13/20 17:04 Aerobic Blood Culture - Final Blood - Venous NO GROWTH AFTER 5 DAYS Anaerobic Blood Culture - Final NO GROWTH AFTER 5 DAYS 03/13/20 17:12 Aerobic Blood Culture - Final Blood - Arm, Right NO GROWTH AFTER 5 DAYS Anaerobic Blood Culture - Final NO GROWTH AFTER 5 DAYS Med Orders - Current: Current Medications Acetaminophen (Tylenol) 650 mg PO Q4H PRN PRN Reason: Pain (Mild 1-3)/fever Last Admin: 03/14/20 11:18 Dose: 650 mg Documented by: Acetaminophen (Tylenol Extra Strength) 1,000 mg PO TID [facility] Last Admin: 03/19/20 08:12 Dose: 1,000 mg Documented by: Albuterol (Proventil Neb Soln) 2.5 mg NEB Q4H PRN PRN Reason: Shortness Of Breath/wheezing Amlodipine Besylate (Norvasc) 10 mg PO DAILY [facility] Last Admin: 03/19/20 08:10 Dose: 10 mg Documented by: Apixaban (Eliquis) 5 mg PO BID [facility] Last Admin: 03/19/20 08:10 Dose: 5 mg Documented by: Aspirin (Halfprin) 81 mg PO DAILY [facility] Last Admin: 03/19/20 08:11 Dose: 81 mg Documented by: Atorvastatin Calcium (Lipitor) 40 mg PO DAILY [facility] Last Admin: 03/19/20 08:11 Dose: 40 mg Documented by: Bisacodyl (Dulcolax) 5 mg PO DAILY PRN PRN Reason: Constipation Cetirizine HCl (Zyrtec) 10 mg PO DAILY [facility] Last Admin: 03/19/20 08:11 Dose: 10 mg Documented by: Chlorthalidone (Chlorthalidone) 12.5 mg PO DAILY [facility] Last Admin: 03/19/20 08:10 Dose: 12.5 mg Documented by: Cyclobenzaprine HCl (Flexeril) 10 mg PO BEDTIME [facility] Last Admin: 03/18/20 20:01 Dose: 10 mg Documented by: Docusate Sodium (Colace) 100 mg PO BID PRN PRN Reason: Constipation Fluticasone Propionate (Flonase) 0 gm NASBOTH DAILY PRN PRN Reason: ALLERGIES Last Admin: 03/18/20 07:44 Dose: 1 spray Documented by: Gabapentin (Neurontin) 300 mg PO TID [facility] Last Admin: 03/19/20 08:10 Dose: 300 mg Documented by: Piperacillin/Tazobactam/ (Dextrose 3.375 gm/ Premix) 50 mls @ 100 mls/hr IV Q6H [facility] Last Admin: 03/19/20 11:53 Dose: 100 mls/hr Documented by: Insulin Human Isoph/Insulin Regular (Humulin 70-30) 5 units SUBCUT ACBREAKFAST PRN PRN Reason: Blood Glucose GREATER THAN 200 Insulin Human Lispro (Humalog) 0 unit SUBCUT QIDACANDBED [facility]; Protocol Last Admin: 03/19/20 11:54 Dose: 2 unit Documented by: Latanoprost (Xalatan 0.005% Ophth Soln) 0 ml EYELF BEDTIME [facility] Last Admin: 03/18/20 20:01 Dose: 1 drop Documented by: Lorazepam (Ativan) 1 mg IV Q6H PRN PRN Reason: Nausea/Vomiting Losartan Potassium (Cozaar) 100 mg PO DAILY [facility] Last Admin: 03/19/20 08:10 Dose: 100 mg Documented by: Magnesium Oxide (Magnesium Oxide) 400 mg PO BID [facility] Last Admin: 03/19/20 08:11 Dose: 400 mg Documented by: Melatonin (Melatonin) 9 mg PO BEDTIME PRN PRN Reason: Insomnia Last Admin: 03/18/20 21:05 Dose: 9 mg Documented by: Metoprolol Succinate 50 mg/ (Metoprolol Succinate 25 mg) 75 mg PO DAILY [facility] Last Admin: 03/19/20 08:10 Dose: 75 mg Documented by: Nitroglycerin (Nitrostat) 0.4 mg SL ASDIRECTED PRN PRN Reason: Chest Pain Ondansetron HCl (Zofran Odt) 4 mg PO Q6H PRN PRN Reason: Nausea able to take PO Oxycodone HCl (Oxycodone) 10 mg PO Q4H PRN PRN Reason: Pain (moderate 4-6) Pantoprazole Sodium (Protonix) 40 mg PO ACBREAKFAST [facility] Last Admin: 03/19/20 07:32 Dose: 40 mg Documented by: Terbinafine Cream ( (Ptom)) 0 each TOP BID PRN PRN Reason: RASH Temazepam (Restoril) 15 mg PO BEDTIME PRN PRN Reason: Sleep Last Admin: 03/13/20 20:55 Dose: 15 mg Documented by: Triamcinolone Acetonide (Triamcinolone Acetonide 0.1% Crm) 0 gm TOP BID PRN PRN Reason: Rash Discontinued Medications Furosemide 40 mg/ Furosemide (20 mg) 60 mg PO DAILY [facility] Last Admin: 03/18/20 08:49 Dose: 60 mg Documented by: Furosemide (Lasix) 40 mg IVPUSH NOW ONE Stop: 03/18/20 16:01 Last Admin: 03/18/20 17:22 Dose: 40 mg Documented by: Furosemide (Lasix) 40 mg IVPUSH NOW ONE Stop: 03/19/20 08:46 Last Admin: 03/19/20 08:47 Dose: 40 mg Documented by: Vancomycin HCl 1 gm/ Sodium (Chloride) 250 mls @ 150 mls/hr IV ONETIME ONE Stop: 03/13/20 18:59 Last Admin: 03/13/20 17:51 Dose: 150 mls/hr Documented by: Piperacillin Sod/Tazobactam (Sod 3.375 gm/ Sodium Chloride) 50 mls @ 100 mls/hr IV ONETIME [facility] Last Admin: 03/13/20 17:49 Dose: 100 mls/hr Documented by: Sodium Chloride (Normal Saline) 1,000 mls @ 75 mls/hr IV ASDIRECTED [facility] Last Admin: 03/14/20 02:37 Dose: 75 mls/hr Documented by: Piperacillin Sod/Tazobactam (Sod 3.375 gm/ Sodium Chloride) 50 mls @ 100 mls/hr IV Q6H [facility] Last Admin: 03/14/20 05:23 Dose: 100 mls/hr Documented by: Vancomycin HCl 1.6 gm/ Sodium (Chloride) 250 mls @ 166.667 mls/hr IV Q12H [facility] Last Admin: 03/18/20 07:55 Dose: 166.667 mls/hr Documented by: Latanoprost (Xalatan 0.005% Ophth Soln) 0 ml EYEBOTH BEDTIME [facility] Last Admin: 03/16/20 20:58 Dose: 1 drop Documented by: Magnesium Oxide (Magnesium Oxide) 400 mg PO BID [facility] Non-Formulary Medication (Acetaminophen [Tylenol Arthritis]) 650 mg PO ASDIRECTED PRN PRN Reason: Pain Non-Formulary Medication (Fluticasone Propionate [Flovent Hfa]) 1 spray INH DAILY PRN PRN Reason: Allergies Non-Formulary Medication (Latanoprost/Pf [Latanoprost 0.005% Eye Drop]) 1 drop EYEBOTH DAILY [facility] Non-Formulary Medication (Magnesium Oxide [Magnesium Oxide]) 420 mg PO BID [facility] Last Admin: 03/13/20 22:34 Dose: Not Given Documented by: Non-Formulary Medication (Terbinafine Hcl [Athlete's Foot]) 1 applic TOP BID PRN PRN Reason: .infection Vancomycin HCl (Vancomycin) 1 gm IV .PHARMACY TO DOSE [facility] - Exam General: Alert, Oriented, Cooperative, No Acute Distress Neck: Supple Lungs: Clear to Auscultation, Normal Respiratory Effort Cardiovascular: Regular Rate, Regular Rhythm GI/Abdominal Exam: Normal Bowel Sounds, Soft, Non-Tender, No Organomegaly, No Distention, No Abnormal Bruit (Male) Exam: Deferred Extremities: Pedal Edema, Leg Pain, Increased Warmth (warmth to medial and inferior right thigh erythemic area) Wound/Incisions: Erythema Improving (right lower extremity erythema receding from prior marked lines in most areas. There is residual erythema with warmth to the inferior medial aspect of the right thigh. ), Other (left lower extremity open area does not show signs of infection. ) Neurological: No New Focal Deficit Sepsis Event Note - Evaluation Sepsis Screening Result: No Definite Risk - Focused Exam Vital Signs: Vital Signs Temp Pulse Pulse Resp BP BP Pulse Ox 03/19/20 11:48 96.4 F L 71 16 96/48 L 93 L 03/19/20 08:10 72 139/64 03/19/20 07:33 96.1 F L 72 16 139/64 94 L 03/19/20 02:50 96.1 F L 69 18 130/52 L 95 - Problem List Review Problem List Initiated/Reviewed/Updated: Yes - Plan Plan:: ASSESSMENT AND PLAN CELLULITIS- right leg, slowly improving. Adding warm compresses to regime for possible symptom improvement. -Zosyn 3.375 g IV every 6 hours -Discontinue vancomycin -blood cultures x 2 are negative -consult to [facility] for evaluation of diabetic ulcer left lower leg at discharge -Elevate RLE, bilateral lower extremity edema wraps Atrial fibrillation- chronic. Vital signs otherwise stable. -Eliquis 5 mg po bid -continue outpatient medications Diabetes Type 2 -Insulin 70/30 give 5 units daily for blood glucose over 200 -Insulin short acting low dose sliding scale coverage -Blood glucose testing before meals and at bedtime Peripheral edema -Hold oral furosemide -IV furosemide twice daily MAINTENANCE ISSUES -DVT prophylaxis- Eliquis 5mg po bid -GI prophylaxis- Prilosec 40 mg po daily -Jeffers catheter- not indicated -Nutrition- consistent carb diet -Nicotine dependence- non-smoker -Spiritual consult -PT consult for ambulation CODE STATUS-FULL CODE ADMISSION STATUS-patient will be admitted to inpatient status, expect at least a 2 night hospital stay for evaluation and management of problems as outlined above. At the time of this admission I do not reasonably expected evaluation and management of this problem will require more than a 96 hour hospital stay. DISPOSITION-anticipate discharge to home after the hospital stay. PRIMARY CARE PROVIDER-[facility]
--- NOTE | 2020-03-19 14:34 | US ---
Extremity Non Vascular Rt CLINICAL HISTORY: Right thigh cellulitis FINDINGS: Real-time images were obtained through the posterior right thigh. There is subcutaneous edema. No focal abnormal fluid collections are identified. There is no significant increased blood flow. IMPRESSION: Posterior thigh cellulitis without evidence of abscess
[2020-03-19] MEDS: Latanoprost 0.005% Ophth Soln 2.5 ML Bottle EYELF SCH (20:32)
[2020-03-19] MEDS: Cyclobenzaprine 10 MG Tab PO SCH (20:32)
[2020-03-19] MEDS: Melatonin 3 MG Tab PO PRN (23:05)
[2020-03-20] MEDS: Piperacillin/Tazobactam/Dext 3.375 GM in Premix Bag 1 BAG IV SCH ×4 (06:25→23:36)
[2020-03-20] MEDS: amLODIPine 5 MG Tab PO SCH (09:00)
[2020-03-20] MEDS: Pantoprazole 40 MG Tab.CR PO SCH (09:00)
[2020-03-20] MEDS: Chlorthalidone 25 MG Tab PO SCH (09:01)
[2020-03-20] MEDS: Gabapentin 300 MG Cap PO SCH ×3 (09:01→20:53)
[2020-03-20] MEDS: Aspirin 81 MG Tab.EC PO SCH (09:01)
[2020-03-20] MEDS: atorvaSTATin 20 MG Tab PO SCH (09:02)
[2020-03-20] MEDS: Apixaban 5 MG Tab PO SCH ×2 (09:02→20:52)
[2020-03-20] MEDS: Losartan 50 MG Tab PO SCH (09:02)
[2020-03-20] MEDS: Acetaminophen 500 MG Tab PO SCH ×3 (09:03→20:53)
[2020-03-20] MEDS: Cetirizine 10 MG Tab PO SCH (09:03)
[2020-03-20] MEDS: Magnesium Oxide 400 MG Tab PO SCH ×2 (09:03→20:53)
[2020-03-20] MEDS: Fluticasone Propionate Nasal Spray 16 GM Bottle NASBOTH PRN (09:04)
[2020-03-20] MEDS: Insulin Lispro 100 Unit/ML 3 ML KwikPen SUBCUT SCH ×4 (09:23→21:53)
[2020-03-20] MEDS: Albuterol 0.083% 2.5 MG/3 ML Neb Soln NEB PRN (14:27)
[2020-03-20] MEDS ORDERED: Furosemide 40 MG/4 ML VIAL IVPUSH ONE ×2 (19:15)
--- NOTE | 2020-03-20 19:18 | PCM.PN ---
- General Info Date of Service: 03/20/20 Subjective Update: Mr. Boucher has noted further improvement over the last 24 hours, less pain and tenderness in his right thigh. He has been doing well with ambulation and feels as though his energy level and appetite have improved. - Review of Systems General: Reports: Weakness, Fatigue. Denies: Fever, Chills Pulmonary: Reports: No Symptoms Cardiovascular: Reports: No Symptoms Gastrointestinal: Reports: No Symptoms Skin: Reports: Other (Erythema and pain right thigh) - Patient Data Vitals - Most Recent: Last Vital Signs Temp 96.9 F 03/20/20 14:32 Pulse 53 L 03/20/20 14:32 Resp 20 03/20/20 14:32 BP 116/61 03/20/20 14:32 Pulse Ox 100 03/20/20 14:32 Weight - Most Recent: 244 lb 7.988 oz I&O - Last 24 Hours: Intake & Output 03/20/20 03/20/20 03/20/20 06:59 14:59 22:59 Intake Total 500 500 Output Total 425 500 Balance 75 0 Lab Results Last 24 Hours: Laboratory Results - last 24 hr 03/19/20 03/20/20 03/20/20 Range/Units 20:48 05:58 08:48 Sodium 136 L (140-148) mmol/L Potassium 3.9 (3.6-5.2) mmol/L Chloride 98 L (100-108) mmol/L Carbon Dioxide 29 (21-32) mmol/L Anion Gap 12.9 (5.0-14.0) mmol/L BUN 13 (7-18) mg/dL Creatinine 1.1 (0.8-1.3) mg/dL Est Cr Clr Drug Dosing 64.39 mL/min Estimated GFR (MDRD) > 60 (>60) Glucose 177 H (74-106) mg/dL POC Glucose 212 H 268 H (74-106) MG/DL Calcium 8.5 (8.5-10.1) mg/dL 03/20/20 03/20/20 Range/Units 11:30 16:30 Sodium (140-148) mmol/L Potassium (3.6-5.2) mmol/L Chloride (100-108) mmol/L Carbon Dioxide (21-32) mmol/L Anion Gap (5.0-14.0) mmol/L BUN (7-18) mg/dL Creatinine (0.8-1.3) mg/dL Est Cr Clr Drug Dosing mL/min Estimated GFR (MDRD) (>60) Glucose (74-106) mg/dL POC Glucose 197 H 190 H (74-106) MG/DL Calcium (8.5-10.1) mg/dL Med Orders - Current: Current Medications Acetaminophen (Tylenol) 650 mg PO Q4H PRN PRN Reason: Pain (Mild 1-3)/fever Last Admin: 03/14/20 11:18 Dose: 650 mg Documented by: Acetaminophen (Tylenol Extra Strength) 1,000 mg PO TID [facility] Last Admin: 03/20/20 14:27 Dose: 1,000 mg Documented by: Albuterol (Proventil Neb Soln) 2.5 mg NEB Q4H PRN PRN Reason: Shortness Of Breath/wheezing Last Admin: 03/20/20 14:27 Dose: 2.5 mg Documented by: Amlodipine Besylate (Norvasc) 10 mg PO DAILY [facility] Last Admin: 03/20/20 09:00 Dose: 10 mg Documented by: Apixaban (Eliquis) 5 mg PO BID [facility] Last Admin: 03/20/20 09:02 Dose: 5 mg Documented by: Aspirin (Halfprin) 81 mg PO DAILY [facility] Last Admin: 03/20/20 09:01 Dose: 81 mg Documented by: Atorvastatin Calcium (Lipitor) 40 mg PO DAILY [facility] Last Admin: 03/20/20 09:02 Dose: 40 mg Documented by: Bisacodyl (Dulcolax) 5 mg PO DAILY PRN PRN Reason: Constipation Cetirizine HCl (Zyrtec) 10 mg PO DAILY [facility] Last Admin: 03/20/20 09:03 Dose: 10 mg Documented by: Chlorthalidone (Chlorthalidone) 12.5 mg PO DAILY [facility] Last Admin: 03/20/20 09:01 Dose: 12.5 mg Documented by: Cyclobenzaprine HCl (Flexeril) 10 mg PO BEDTIME [facility] Last Admin: 03/19/20 20:32 Dose: 10 mg Documented by: Docusate Sodium (Colace) 100 mg PO BID PRN PRN Reason: Constipation Fluticasone Propionate (Flonase) 0 gm NASBOTH DAILY PRN PRN Reason: ALLERGIES Last Admin: 03/20/20 09:04 Dose: 1 spray Documented by: Furosemide (Lasix) 40 mg IVPUSH NOW ONE Stop: 03/20/20 19:16 Gabapentin (Neurontin) 300 mg PO TID [facility] Last Admin: 03/20/20 14:27 Dose: 300 mg Documented by: Piperacillin/Tazobactam/ (Dextrose 3.375 gm/ Premix) 50 mls @ 100 mls/hr IV Q6H [facility] Last Admin: 03/20/20 17:47 Dose: 100 mls/hr Documented by: Insulin Human Isoph/Insulin Regular (Humulin 70-30) 5 units SUBCUT ACBREAKFAST PRN PRN Reason: Blood Glucose GREATER THAN 200 Insulin Human Lispro (Humalog) 0 unit SUBCUT QIDACANDBED [facility]; Protocol Last Admin: 03/20/20 17:05 Dose: 1 unit Documented by: Latanoprost (Xalatan 0.005% Ophth Soln) 0 ml EYELF BEDTIME [facility] Last Admin: 03/19/20 20:32 Dose: 1 drop Documented by: Lorazepam (Ativan) 1 mg IV Q6H PRN PRN Reason: Nausea/Vomiting Losartan Potassium (Cozaar) 100 mg PO DAILY [facility] Last Admin: 03/20/20 09:02 Dose: 100 mg Documented by: Magnesium Oxide (Magnesium Oxide) 400 mg PO BID [facility] Last Admin: 03/20/20 09:03 Dose: 400 mg Documented by: Melatonin (Melatonin) 9 mg PO BEDTIME PRN PRN Reason: Insomnia Last Admin: 03/19/20 23:05 Dose: 9 mg Documented by: Metoprolol Succinate 50 mg/ (Metoprolol Succinate 25 mg) 75 mg PO DAILY [facility] Last Admin: 03/20/20 09:02 Dose: 75 mg Documented by: Nitroglycerin (Nitrostat) 0.4 mg SL ASDIRECTED PRN PRN Reason: Chest Pain Ondansetron HCl (Zofran Odt) 4 mg PO Q6H PRN PRN Reason: Nausea able to take PO Oxycodone HCl (Oxycodone) 10 mg PO Q4H PRN PRN Reason: Pain (moderate 4-6) Pantoprazole Sodium (Protonix) 40 mg PO ACBREAKFAST [facility] Last Admin: 03/20/20 09:00 Dose: 40 mg Documented by: Terbinafine Cream ( (Ptom)) 0 each TOP BID PRN PRN Reason: RASH Temazepam (Restoril) 15 mg PO BEDTIME PRN PRN Reason: Sleep Last Admin: 03/13/20 20:55 Dose: 15 mg Documented by: Triamcinolone Acetonide (Triamcinolone Acetonide 0.1% Crm) 0 gm TOP BID PRN PRN Reason: Rash Discontinued Medications Furosemide 40 mg/ Furosemide (20 mg) 60 mg PO DAILY [facility] Last Admin: 03/18/20 08:49 Dose: 60 mg Documented by: Furosemide (Lasix) 40 mg IVPUSH NOW ONE Stop: 03/18/20 16:01 Last Admin: 03/18/20 17:22 Dose: 40 mg Documented by: Furosemide (Lasix) 40 mg IVPUSH NOW ONE Stop: 03/19/20 08:46 Last Admin: 03/19/20 08:47 Dose: 40 mg Documented by: Furosemide (Lasix) 40 mg IVPUSH ONETIME ONE Stop: 03/19/20 17:01 Last Admin: 03/19/20 17:18 Dose: 40 mg Documented by: Furosemide (Lasix) 20 mg IVPUSH NOW ONE Stop: 03/20/20 19:16 Vancomycin HCl 1 gm/ Sodium (Chloride) 250 mls @ 150 mls/hr IV ONETIME ONE Stop: 03/13/20 18:59 Last Admin: 03/13/20 17:51 Dose: 150 mls/hr Documented by: Piperacillin Sod/Tazobactam (Sod 3.375 gm/ Sodium Chloride) 50 mls @ 100 mls/hr IV ONETIME [facility] Last Admin: 03/13/20 17:49 Dose: 100 mls/hr Documented by: Sodium Chloride (Normal Saline) 1,000 mls @ 75 mls/hr IV ASDIRECTED [facility] Last Admin: 03/14/20 02:37 Dose: 75 mls/hr Documented by: Piperacillin Sod/Tazobactam (Sod 3.375 gm/ Sodium Chloride) 50 mls @ 100 mls/hr IV Q6H [facility] Last Admin: 03/14/20 05:23 Dose: 100 mls/hr Documented by: Vancomycin HCl 1.6 gm/ Sodium (Chloride) 250 mls @ 166.667 mls/hr IV Q12H [facility] Last Admin: 03/18/20 07:55 Dose: 166.667 mls/hr Documented by: Latanoprost (Xalatan 0.005% Ophth Soln) 0 ml EYEBOTH BEDTIME [facility] Last Admin: 03/16/20 20:58 Dose: 1 drop Documented by: Magnesium Oxide (Magnesium Oxide) 400 mg PO BID [facility] Non-Formulary Medication (Acetaminophen [Tylenol Arthritis]) 650 mg PO ASDIRECTED PRN PRN Reason: Pain Non-Formulary Medication (Fluticasone Propionate [Flovent Hfa]) 1 spray INH DAILY PRN PRN Reason: Allergies Non-Formulary Medication (Latanoprost/Pf [Latanoprost 0.005% Eye Drop]) 1 drop EYEBOTH DAILY [facility] Non-Formulary Medication (Magnesium Oxide [Magnesium Oxide]) 420 mg PO BID [facility] Last Admin: 03/13/20 22:34 Dose: Not Given Documented by: Non-Formulary Medication (Terbinafine Hcl [Athlete's Foot]) 1 applic TOP BID PRN PRN Reason: .infection Vancomycin HCl (Vancomycin) 1 gm IV .PHARMACY TO DOSE [facility] - Exam Quality Assessment: DVT Prophylaxis General: Alert, Oriented, Cooperative, Mild Distress Lungs: Clear to Auscultation, Normal Respiratory Effort Cardiovascular: Regular Rate, Regular Rhythm, No Murmurs GI/Abdominal Exam: Soft, Non-Tender, No Organomegaly, No Distention Extremities: Other (Erythema and tenderness to palpation right thigh, improved from yesterday) Sepsis Event Note - Evaluation Sepsis Screening Result: No Definite Risk - Focused Exam Vital Signs: Vital Signs Temp Pulse Pulse Resp BP BP Pulse Ox 03/20/20 14:32 96.9 F 53 L 20 116/61 100 03/20/20 10:00 97.1 F 82 20 131/60 95 03/20/20 09:02 82 120/57 L 03/20/20 09:00 120/57 L - Problem List Review Problem List Initiated/Reviewed/Updated: Yes - My Orders Last 24 Hours: My Active Orders 03/20/20 19:15 Furosemide [Lasix] 40 mg IVPUSH NOW ONE 03/20/20 21:00 GLUCOSE POC LAB TO COLLECT JPM [POC] QIDACANDBED 03/21/20 05:00 BASIC METABOLIC PANEL,BMP [CHEM] Timed - Plan Plan:: ASSESSMENT AND PLAN CELLULITIS- right leg, slowly improving. Adding warm compresses to regime for possible symptom improvement. -Zosyn 3.375 g IV every 6 hours -blood cultures x 2 are negative -consult to [facility] for evaluation of diabetic ulcer left lower leg at discharge -Elevate RLE, bilateral lower extremity edema wraps Atrial fibrillation- chronic. Vital signs otherwise stable. -Eliquis 5 mg po bid -continue outpatient medications Diabetes Type 2 -Insulin 70/30 give 5 units daily for blood glucose over 200 -Insulin short acting low dose sliding scale coverage -Blood glucose testing before meals and at bedtime Peripheral edema -Hold oral furosemide -IV furosemide twice daily MAINTENANCE ISSUES -DVT prophylaxis- Eliquis 5mg po bid -GI prophylaxis- Prilosec 40 mg po daily -Jeffers catheter- not indicated -Nutrition- consistent carb diet -Nicotine dependence- non-smoker -Spiritual consult -PT consult for ambulation CODE STATUS-FULL CODE ADMISSION STATUS-patient will be admitted to inpatient status, expect at least a 2 night hospital stay for evaluation and management of problems as outlined above. At the time of this admission I do not reasonably expected evaluation and management of this problem will require more than a 96 hour hospital stay. DISPOSITION-anticipate discharge to home after the hospital stay. PRIMARY CARE PROVIDER-[facility]
[2020-03-20] MEDS: Cyclobenzaprine 10 MG Tab PO SCH (20:52)
[2020-03-20] MEDS: Latanoprost 0.005% Ophth Soln 2.5 ML Bottle EYELF SCH (20:53)
[2020-03-20] MEDS: Melatonin 3 MG Tab PO PRN (20:54)
[2020-03-20] MEDS: Acetaminophen 325 MG Tab PO PRN (21:58)
[2020-03-21] MEDS: Albuterol 0.083% 2.5 MG/3 ML Neb Soln NEB PRN (02:40)
[2020-03-21] MEDS: Piperacillin/Tazobactam/Dext 3.375 GM in Premix Bag 1 BAG IV SCH ×3 (05:04→18:23)
[2020-03-21] MEDS: Insulin Lispro 100 Unit/ML 3 ML KwikPen SUBCUT SCH ×4 (08:03→21:45)
[2020-03-21] MEDS: Pantoprazole 40 MG Tab.CR PO SCH (08:17)
[2020-03-21] MEDS: Acetaminophen 500 MG Tab PO SCH ×3 (08:18→22:05)
[2020-03-21] MEDS: Losartan 50 MG Tab PO SCH (08:31)
[2020-03-21] MEDS: Chlorthalidone 25 MG Tab PO SCH (08:32)
[2020-03-21] MEDS: atorvaSTATin 20 MG Tab PO SCH (08:33)
[2020-03-21] MEDS: Apixaban 5 MG Tab PO SCH ×2 (08:33→22:04)
[2020-03-21] MEDS: Aspirin 81 MG Tab.EC PO SCH (08:33)
[2020-03-21] MEDS: Magnesium Oxide 400 MG Tab PO SCH ×2 (08:34→22:04)
[2020-03-21] MEDS: Gabapentin 300 MG Cap PO SCH ×3 (08:34→22:04)
[2020-03-21] MEDS: amLODIPine 5 MG Tab PO SCH (08:34)
[2020-03-21] MEDS: Cetirizine 10 MG Tab PO SCH (08:35)
[2020-03-21] MEDS ORDERED: Furosemide 40 MG/4 ML VIAL IVPUSH ONE (12:30)
--- NOTE | 2020-03-21 13:29 | PCM.PN ---
- General Info Date of Service: 03/21/20 Subjective Update: Mr. Boucher continues to show improvement with the right thigh cellulitis. The erythemia is receeding. There is decreased pain/tenderness to the inferior medial right thigh where the erythemia persists. He is tolerating more frequent and longer ambulation. He does note itching to the persistent erythemic area, but resists scratching. Functional Status: Reports: Pain Controlled - Review of Systems General: Reports: No Symptoms HEENT: Reports: No Symptoms Pulmonary: Reports: Other (difficulty with breathing at night, he does not have CPAP here. will bring in for use tonight.) Cardiovascular: Reports: Edema Gastrointestinal: Reports: No Symptoms Genitourinary: Reports: No Symptoms Musculoskeletal: Reports: No Symptoms Skin: Reports: Other (see subjective update) Neurological: Reports: No Symptoms Psychiatric: Reports: No Symptoms - Patient Data Vitals - Most Recent: Last Vital Signs Temp 94.8 F L 03/21/20 08:00 Pulse 76 03/21/20 08:35 Resp 18 03/21/20 08:00 BP 124/69 03/21/20 08:35 Pulse Ox 95 03/21/20 09:36 Weight - Most Recent: 255 lb I&O - Last 24 Hours: Intake & Output 03/20/20 03/21/20 03/21/20 22:59 06:59 14:59 Intake Total 400 311 Output Total 900 135 Balance -500 176 Lab Results Last 24 Hours: Laboratory Results - last 24 hr 03/20/20 03/20/20 03/21/20 Range/Units 16:30 21:00 05:58 Sodium 136 L (140-148) mmol/L Potassium 3.8 (3.6-5.2) mmol/L Chloride 100 (100-108) mmol/L Carbon Dioxide 29 (21-32) mmol/L Anion Gap 10.8 (5.0-14.0) mmol/L BUN 13 (7-18) mg/dL Creatinine 1.0 (0.8-1.3) mg/dL Est Cr Clr Drug Dosing 70.83 mL/min Estimated GFR (MDRD) > 60 (>60) Glucose 185 H (74-106) mg/dL POC Glucose 190 H 264 H (74-106) MG/DL Calcium 8.4 L (8.5-10.1) mg/dL 03/21/20 03/21/20 Range/Units 07:30 11:30 Sodium (140-148) mmol/L Potassium (3.6-5.2) mmol/L Chloride (100-108) mmol/L Carbon Dioxide (21-32) mmol/L Anion Gap (5.0-14.0) mmol/L BUN (7-18) mg/dL Creatinine (0.8-1.3) mg/dL Est Cr Clr Drug Dosing mL/min Estimated GFR (MDRD) (>60) Glucose (74-106) mg/dL POC Glucose 188 H 197 H (74-106) MG/DL Calcium (8.5-10.1) mg/dL Med Orders - Current: Current Medications Acetaminophen (Tylenol) 650 mg PO Q4H PRN PRN Reason: Pain (Mild 1-3)/fever Last Admin: 03/20/20 21:58 Dose: 650 mg Documented by: Acetaminophen (Tylenol Extra Strength) 1,000 mg PO TID [facility] Last Admin: 03/21/20 08:18 Dose: 1,000 mg Documented by: Albuterol (Proventil Neb Soln) 2.5 mg NEB Q4H PRN PRN Reason: Shortness Of Breath/wheezing Last Admin: 03/21/20 02:40 Dose: 2.5 mg Documented by: Amlodipine Besylate (Norvasc) 10 mg PO DAILY [facility] Last Admin: 03/21/20 08:34 Dose: 10 mg Documented by: Apixaban (Eliquis) 5 mg PO BID [facility] Last Admin: 03/21/20 08:33 Dose: 5 mg Documented by: Aspirin (Halfprin) 81 mg PO DAILY [facility] Last Admin: 03/21/20 08:33 Dose: 81 mg Documented by: Atorvastatin Calcium (Lipitor) 40 mg PO DAILY [facility] Last Admin: 03/21/20 08:33 Dose: 40 mg Documented by: Bisacodyl (Dulcolax) 5 mg PO DAILY PRN PRN Reason: Constipation Cetirizine HCl (Zyrtec) 10 mg PO DAILY [facility] Last Admin: 03/21/20 08:35 Dose: 10 mg Documented by: Chlorthalidone (Chlorthalidone) 12.5 mg PO DAILY [facility] Last Admin: 03/21/20 08:32 Dose: 12.5 mg Documented by: Cyclobenzaprine HCl (Flexeril) 10 mg PO BEDTIME [facility] Last Admin: 03/20/20 20:52 Dose: 10 mg Documented by: Docusate Sodium (Colace) 100 mg PO BID PRN PRN Reason: Constipation Fluticasone Propionate (Flonase) 0 gm NASBOTH DAILY PRN PRN Reason: ALLERGIES Last Admin: 03/20/20 09:04 Dose: 1 spray Documented by: Gabapentin (Neurontin) 300 mg PO TID [facility] Last Admin: 03/21/20 08:34 Dose: 300 mg Documented by: Piperacillin/Tazobactam/ (Dextrose 3.375 gm/ Premix) 50 mls @ 100 mls/hr IV Q6H [facility] Last Admin: 03/21/20 12:29 Dose: 100 mls/hr Documented by: Insulin Human Isoph/Insulin Regular (Humulin 70-30) 5 units SUBCUT ACBREAKFAST PRN PRN Reason: Blood Glucose GREATER THAN 200 Insulin Human Lispro (Humalog) 0 unit SUBCUT QIDACANDBED [facility]; Protocol Last Admin: 03/21/20 12:27 Dose: 1 unit Documented by: Lactobacillus Rhamnosus (Culturelle) 1 cap PO BID [facility] Latanoprost (Xalatan 0.005% Ophth Soln) 0 ml EYELF BEDTIME [facility] Last Admin: 03/20/20 20:53 Dose: 1 drop Documented by: Lorazepam (Ativan) 1 mg IV Q6H PRN PRN Reason: Nausea/Vomiting Losartan Potassium (Cozaar) 100 mg PO DAILY [facility] Last Admin: 03/21/20 08:31 Dose: 100 mg Documented by: Magnesium Oxide (Magnesium Oxide) 400 mg PO BID [facility] Last Admin: 03/21/20 08:34 Dose: 400 mg Documented by: Melatonin (Melatonin) 9 mg PO BEDTIME PRN PRN Reason: Insomnia Last Admin: 03/20/20 20:54 Dose: 9 mg Documented by: Metoprolol Succinate 50 mg/ (Metoprolol Succinate 25 mg) 75 mg PO DAILY [facility] Last Admin: 03/21/20 08:35 Dose: 75 mg Documented by: Nitroglycerin (Nitrostat) 0.4 mg SL ASDIRECTED PRN PRN Reason: Chest Pain Ondansetron HCl (Zofran Odt) 4 mg PO Q6H PRN PRN Reason: Nausea able to take PO Oxycodone HCl (Oxycodone) 10 mg PO Q4H PRN PRN Reason: Pain (moderate 4-6) Pantoprazole Sodium (Protonix) 40 mg PO ACBREAKFAST [facility] Last Admin: 03/21/20 08:17 Dose: 40 mg Documented by: Terbinafine Cream ( (Ptom)) 0 each TOP BID PRN PRN Reason: RASH Temazepam (Restoril) 15 mg PO BEDTIME PRN PRN Reason: Sleep Last Admin: 03/13/20 20:55 Dose: 15 mg Documented by: Triamcinolone Acetonide (Triamcinolone Acetonide 0.1% Crm) 0 gm TOP BID PRN PRN Reason: Rash Discontinued Medications Furosemide 40 mg/ Furosemide (20 mg) 60 mg PO DAILY [facility] Last Admin: 03/18/20 08:49 Dose: 60 mg Documented by: Furosemide (Lasix) 40 mg IVPUSH NOW ONE Stop: 03/18/20 16:01 Last Admin: 03/18/20 17:22 Dose: 40 mg Documented by: Furosemide (Lasix) 40 mg IVPUSH NOW ONE Stop: 03/19/20 08:46 Last Admin: 03/19/20 08:47 Dose: 40 mg Documented by: Furosemide (Lasix) 40 mg IVPUSH ONETIME ONE Stop: 03/19/20 17:01 Last Admin: 03/19/20 17:18 Dose: 40 mg Documented by: Furosemide (Lasix) 20 mg IVPUSH NOW ONE Stop: 03/20/20 19:16 Furosemide (Lasix) 40 mg IVPUSH NOW ONE Stop: 03/20/20 19:16 Last Admin: 03/20/20 20:47 Dose: 40 mg Documented by: Furosemide (Lasix) 40 mg IVPUSH NOW ONE Stop: 03/21/20 12:31 Last Admin: 03/21/20 12:29 Dose: 40 mg Documented by: Vancomycin HCl 1 gm/ Sodium (Chloride) 250 mls @ 150 mls/hr IV ONETIME ONE Stop: 03/13/20 18:59 Last Admin: 03/13/20 17:51 Dose: 150 mls/hr Documented by: Piperacillin Sod/Tazobactam (Sod 3.375 gm/ Sodium Chloride) 50 mls @ 100 mls/hr IV ONETIME [facility] Last Admin: 03/13/20 17:49 Dose: 100 mls/hr Documented by: Sodium Chloride (Normal Saline) 1,000 mls @ 75 mls/hr IV ASDIRECTED [facility] Last Admin: 03/14/20 02:37 Dose: 75 mls/hr Documented by: Piperacillin Sod/Tazobactam (Sod 3.375 gm/ Sodium Chloride) 50 mls @ 100 mls/hr IV Q6H [facility] Last Admin: 03/14/20 05:23 Dose: 100 mls/hr Documented by: Vancomycin HCl 1.6 gm/ Sodium (Chloride) 250 mls @ 166.667 mls/hr IV Q12H [facility] Last Admin: 03/18/20 07:55 Dose: 166.667 mls/hr Documented by: Latanoprost (Xalatan 0.005% Ophth Soln) 0 ml EYEBOTH BEDTIME [facility] Last Admin: 03/16/20 20:58 Dose: 1 drop Documented by: Magnesium Oxide (Magnesium Oxide) 400 mg PO BID [facility] Non-Formulary Medication (Acetaminophen [Tylenol Arthritis]) 650 mg PO ASDIR ECTED PRN PRN Reason: Pain Non-Formulary Medication (Fluticasone Propionate [Flovent Hfa]) 1 spray INH DAILY PRN PRN Reason: Allergies Non-Formulary Medication (Latanoprost/Pf [Latanoprost 0.005% Eye Drop]) 1 drop EYEBOTH DAILY [facility] Non-Formulary Medication (Magnesium Oxide [Magnesium Oxide]) 420 mg PO BID [facility] Last Admin: 03/13/20 22:34 Dose: Not Given Documented by: Non-Formulary Medication (Terbinafine Hcl [Athlete's Foot]) 1 applic TOP BID PRN PRN Reason: .infection Vancomycin HCl (Vancomycin) 1 gm IV .PHARMACY TO DOSE [facility] - Exam General: Alert, Oriented Lungs: Clear to Auscultation, Normal Respiratory Effort. No: Decreased Breath Sounds, Crackles, Rales, Rhonchi, Rub, Stridor, Wheezing Cardiovascular: Regular Rate, Regular Rhythm, No Murmurs. No: Murmurs, Gallops, Rubs GI/Abdominal Exam: Soft, Non-Tender, No Organomegaly (Male) Exam: Deferred Back Exam: Normal Inspection Extremities: Pedal Edema (improving 1-2+ pitting edema) Wound/Incisions: Erythema Improving (Right lower extremity erythema receding from prior marked lines in most areas. There is residual erythema without warmth to the inferior medial aspect of the right thigh.), Other (Erythema Improving (right lower extremity erythema receding from prior marked lines in most areas. There is residual erythema with warmth to the inferior medial aspect of the right thigh. ), Other (left lower extremity open area does not show signs of infection. )) Neurological: No New Focal Deficit Psy/Mental Status: Alert, Normal Affect, Normal Mood Sepsis Event Note - Evaluation Sepsis Screening Result: No Definite Risk - Focused Exam Vital Signs: Vital Signs Temp Pulse Pulse Resp BP BP Pulse Ox 03/21/20 09:36 95 03/21/20 08:35 76 124/69 03/21/20 08:34 124/69 03/21/20 08:31 124/69 03/21/20 08:00 94.8 F L 76 18 124/69 96 03/21/20 07:43 94.8 F L 03/21/20 02:36 95.6 F L 73 18 135/70 96 - Problem List Review Problem List Initiated/Reviewed/Updated: Yes - My Orders Last 24 Hours: My Active Orders 03/21/20 12:25 CPAP Noctural Home [RT BiPAP/CPAP] [RC] ASDIRECTED 03/21/20 13:00 Lactobacillus Rhamnosus GG [Culturelle] 1 cap PO BID - Plan Plan:: ASSESSMENT AND PLAN CELLULITIS- right leg continues to slowly improve. Adding warm compresses to regime for possible symptom improvement. -Zosyn 3.375 g IV every 6 hours -blood cultures x 2 are negative -consult to [facility]ound Clinic for evaluation of diabetic ulcer left lower leg at discharge -Elevate RLE, bilateral lower extremity edema wraps -Compression wrapping Atrial fibrillation- chronic. Vital signs otherwise stable. -Eliquis 5 mg po bid -continue outpatient medications Diabetes Type 2 -Insulin 70/30 give 5 units daily for blood glucose over 200 -Insulin short acting low dose sliding scale coverage -Blood glucose testing before meals and at bedtime Peripheral edema - improving -Hold oral furosemide -IV furosemide twice daily -Compression wrapping of legs bilaterally up to thighs MAINTENANCE ISSUES -DVT prophylaxis- Eliquis 5mg po bid -GI prophylaxis- Prilosec 40 mg po daily -Jeffers catheter- not indicated -Home CPAP usage, continue in hospital with home CPAP settings on personal CPAP machine -Nutrition- consistent carb diet -Nicotine dependence- non-smoker -Spiritual consult -PT consult for ambulation CODE STATUS-FULL CODE ADMISSION STATUS-patient will be admitted to inpatient status, expect at least a 2 night hospital stay for evaluation and management of problems as outlined above. At the time of this admission I do not reasonably expected evaluation and management of this problem will require more than a 96 hour hospital stay. DISPOSITION-anticipate discharge to home after the hospital stay. PRIMARY CARE PROVIDER-[facility]
[2020-03-21] MEDS: Lactobacillus Rhamnosus GG (Probiotic) Cap PO SCH ×2 (14:20→22:04)
[2020-03-21] MEDS: Cyclobenzaprine 10 MG Tab PO SCH (22:04)
[2020-03-21] MEDS: Latanoprost 0.005% Ophth Soln 2.5 ML Bottle EYELF SCH (22:05)
[2020-03-22] MEDS: Piperacillin/Tazobactam/Dext 3.375 GM in Premix Bag 1 BAG IV SCH ×5 (00:03→23:56)
[2020-03-22] MEDS: Pantoprazole 40 MG Tab.CR PO SCH (07:23)
[2020-03-22] MEDS: Insulin Lispro 100 Unit/ML 3 ML KwikPen SUBCUT SCH ×5 (09:34→21:22)
[2020-03-22] MEDS: Gabapentin 300 MG Cap PO SCH ×4 (09:36→20:12)
[2020-03-22] MEDS: amLODIPine 5 MG Tab PO SCH (09:36)
[2020-03-22] MEDS: Apixaban 5 MG Tab PO SCH ×3 (09:36→20:12)
[2020-03-22] MEDS: Lactobacillus Rhamnosus GG (Probiotic) Cap PO SCH ×3 (09:36→20:12)
[2020-03-22] MEDS: Acetaminophen 500 MG Tab PO SCH ×4 (09:37→20:12)
[2020-03-22] MEDS: Cetirizine 10 MG Tab PO SCH (09:37)
[2020-03-22] MEDS: Aspirin 81 MG Tab.EC PO SCH (09:37)
[2020-03-22] MEDS: Chlorthalidone 25 MG Tab PO SCH (09:38)
[2020-03-22] MEDS: Magnesium Oxide 400 MG Tab PO SCH ×3 (09:38→20:12)
[2020-03-22] MEDS: Losartan 50 MG Tab PO SCH (09:38)
[2020-03-22] MEDS: atorvaSTATin 20 MG Tab PO SCH (09:39)
[2020-03-22] MEDS ORDERED: Sodium Chloride 0.65% Nasal Spray 45 ML Bottle NAS PRN (10:43)
--- NOTE | 2020-03-22 10:55 | PCM.PN ---
- General Info Date of Service: 03/22/20 Admission Dx/Problem (Free Text): 1. Cellulitis Subjective Update: Mr. Boucher continues to show improvement with the right thigh cellulitis. The erythema is receding. There is very minimal pain/tenderness to the inferior medial right thigh where the erythema persists today, even with palpation of the area which has improved from yesterday. He is tolerating more frequent and longer ambulation. He continues note itching to the persistent erythemic area, but resists scratching. He continues to have 1-2+ pitting edema, much improved from earlier this week. Functional Status: Reports: Pain Controlled, Tolerating Diet, Ambulating, Urinating, Incentive Spirometry - Review of Systems General: Reports: No Symptoms HEENT: Reports: Sinus Congestion (sinus congestion/dryness, saline nasal spray ordered. ) Pulmonary: Reports: Shortness of Breath (woke with sudden shortness of breath using CPAP, resolved quickly on it's own. ) Cardiovascular: Reports: No Symptoms Gastrointestinal: Reports: No Symptoms Genitourinary: Reports: No Symptoms Musculoskeletal: Reports: No Symptoms Skin: Reports: Other (see subjective update.) Neurological: Reports: No Symptoms Psychiatric: Reports: No Symptoms - Patient Data Vitals - Most Recent: Last Vital Signs Temp 96.0 F L 03/22/20 07:31 Pulse 86 03/22/20 09:37 Resp 18 03/22/20 07:31 BP 146/82 H 03/22/20 09:38 Pulse Ox 95 03/22/20 07:31 Weight - Most Recent: 256 lb 9.6 oz I&O - Last 24 Hours: Intake & Output 03/21/20 03/22/20 03/22/20 22:59 06:59 14:59 Intake Total 400 50 480 Output Total 200 Balance 400 -150 480 Lab Results Last 24 Hours: Laboratory Results - last 24 hr 03/21/20 03/21/20 03/21/20 Range/Units 11:30 16:15 20:55 Sodium (140-148) mmol/L Potassium (3.6-5.2) mmol/L Chloride (100-108) mmol/L Carbon Dioxide (21-32) mmol/L Anion Gap (5.0-14.0) mmol/L BUN (7-18) mg/dL Creatinine (0.8-1.3) mg/dL Est Cr Clr Drug Dosing mL/min Estimated GFR (MDRD) (>60) Glucose (74-106) mg/dL POC Glucose 197 H 240 H 215 H (74-106) MG/DL Calcium (8.5-10.1) mg/dL 03/22/20 03/22/20 Range/Units 06:23 07:30 Sodium 137 L (140-148) mmol/L Potassium 4.0 (3.6-5.2) mmol/L Chloride 100 (100-108) mmol/L Carbon Dioxide 31 (21-32) mmol/L Anion Gap 10.0 (5.0-14.0) mmol/L BUN 13 (7-18) mg/dL Creatinine 1.0 (0.8-1.3) mg/dL Est Cr Clr Drug Dosing 70.83 mL/min Estimated GFR (MDRD) > 60 (>60) Glucose 162 H (74-106) mg/dL POC Glucose 152 H (74-106) MG/DL Calcium 9.0 (8.5-10.1) mg/dL Med Orders - Current: Current Medications Acetaminophen (Tylenol) 650 mg PO Q4H PRN PRN Reason: Pain (Mild 1-3)/fever Last Admin: 03/20/20 21:58 Dose: 650 mg Documented by: Acetaminophen (Tylenol Extra Strength) 1,000 mg PO TID [facility] Last Admin: 03/22/20 09:37 Dose: 1,000 mg Documented by: Albuterol (Proventil Neb Soln) 2.5 mg NEB Q4H PRN PRN Reason: Shortness Of Breath/wheezing Last Admin: 03/21/20 02:40 Dose: 2.5 mg Documented by: Amlodipine Besylate (Norvasc) 10 mg PO DAILY [facility] Last Admin: 03/22/20 09:36 Dose: 10 mg Documented by: Apixaban (Eliquis) 5 mg PO BID [facility] Last Admin: 03/22/20 09:36 Dose: 5 mg Documented by: Aspirin (Halfprin) 81 mg PO DAILY [facility] Last Admin: 03/22/20 09:37 Dose: 81 mg Documented by: Atorvastatin Calcium (Lipitor) 40 mg PO DAILY [facility] Last Admin: 03/22/20 09:39 Dose: 40 mg Documented by: Bisacodyl (Dulcolax) 5 mg PO DAILY PRN PRN Reason: Constipation Cetirizine HCl (Zyrtec) 10 mg PO DAILY [facility] Last Admin: 03/22/20 09:37 Dose: 10 mg Documented by: Chlorthalidone (Chlorthalidone) 12.5 mg PO DAILY [facility] Last Admin: 03/22/20 09:38 Dose: 12.5 mg Documented by: Cyclobenzaprine HCl (Flexeril) 10 mg PO BEDTIME [facility] Last Admin: 03/21/20 22:04 Dose: 10 mg Documented by: Docusate Sodium (Colace) 100 mg PO BID PRN PRN Reason: Constipation Fluticasone Propionate (Flonase) 0 gm NASBOTH DAILY PRN PRN Reason: ALLERGIES Last Admin: 03/20/20 09:04 Dose: 1 spray Documented by: Gabapentin (Neurontin) 300 mg PO TID [facility] Last Admin: 03/22/20 09:36 Dose: 300 mg Documented by: Piperacillin/Tazobactam/ (Dextrose 3.375 gm/ Premix) 50 mls @ 100 mls/hr IV Q6H [facility] Last Admin: 03/22/20 05:20 Dose: 100 mls/hr Documented by: Insulin Human Isoph/Insulin Regular (Humulin 70-30) 5 units SUBCUT ACBREAKFAST PRN PRN Reason: Blood Glucose GREATER THAN 200 Insulin Human Lispro (Humalog) 0 unit SUBCUT QIDACANDBED [facility]; Protocol Last Admin: 03/22/20 09:34 Dose: Not Given Documented by: Lactobacillus Rhamnosus (Culturelle) 1 cap PO BID [facility] Last Admin: 03/22/20 09:36 Dose: 1 cap Documented by: Latanoprost (Xalatan 0.005% [facility] Soln) 0 ml EYELF BEDTIME [facility] Last Admin: 03/21/20 22:05 Dose: 1 drop Documented by: Lorazepam (Ativan) 1 mg IV Q6H PRN PRN Reason: Nausea/Vomiting Losartan Potassium (Cozaar) 100 mg PO DAILY [facility] Last Admin: 03/22/20 09:38 Dose: 100 mg Documented by: Magnesium Oxide (Magnesium Oxide) 400 mg PO BID [facility] Last Admin: 03/22/20 09:38 Dose: 400 mg Documented by: Melatonin (Melatonin) 9 mg PO BEDTIME PRN PRN Reason: Insomnia Last Admin: 03/20/20 20:54 Dose: 9 mg Documented by: Metoprolol Succinate 50 mg/ (Metoprolol Succinate 25 mg) 75 mg PO DAILY [facility] Last Admin: 03/22/20 09:37 Dose: 75 mg Documented by: Nitroglycerin (Nitrostat) 0.4 mg SL ASDIRECTED PRN PRN Reason: Chest Pain Ondansetron HCl (Zofran Odt) 4 mg PO Q6H PRN PRN Reason: Nausea able to take PO Oxycodone HCl (Oxycodone) 10 mg PO Q4H PRN PRN Reason: Pain (moderate 4-6) Pantoprazole Sodium (Protonix) 40 mg PO ACBREAKFAST [facility] Last Admin: 03/22/20 07:23 Dose: 40 mg Documented by: Terbinafine Cream ( (Ptom)) 0 each TOP BID PRN PRN Reason: RASH Temazepam (Restoril) 15 mg PO BEDTIME PRN PRN Reason: Sleep Last Admin: 03/13/20 20:55 Dose: 15 mg Documented by: Triamcinolone Acetonide (Triamcinolone Acetonide 0.1% Crm) 0 gm TOP BID PRN PRN Reason: Rash Discontinued Medications Furosemide 40 mg/ Furosemide (20 mg) 60 mg PO DAILY [facility] Last Admin: 03/18/20 08:49 Dose: 60 mg Documented by: Furosemide (Lasix) 40 mg IVPUSH NOW ONE Stop: 03/18/20 16:01 Last Admin: 03/18/20 17:22 Dose: 40 mg Documented by: Furosemide (Lasix) 40 mg IVPUSH NOW ONE Stop: 03/19/20 08:46 Last Admin: 03/19/20 08:47 Dose: 40 mg Documented by: Furosemide (Lasix) 40 mg IVPUSH ONETIME ONE Stop: 03/19/20 17:01 Last Admin: 03/19/20 17:18 Dose: 40 mg Documented by: Furosemide (Lasix) 20 mg IVPUSH NOW ONE Stop: 03/20/20 19:16 Furosemide (Lasix) 40 mg IVPUSH NOW ONE Stop: 03/20/20 19:16 Last Admin: 03/20/20 20:47 Dose: 40 mg Documented by: Furosemide (Lasix) 40 mg IVPUSH NOW ONE Stop: 03/21/20 12:31 Last Admin: 03/21/20 12:29 Dose: 40 mg Documented by: Vancomycin HCl 1 gm/ Sodium (Chloride) 250 mls @ 150 mls/hr IV ONETIME ONE Stop: 03/13/20 18:59 Last Admin: 03/13/20 17:51 Dose: 150 mls/hr Documented by: Piperacillin Sod/Tazobactam (Sod 3.375 gm/ Sodium Chloride) 50 mls @ 100 mls/hr IV ONETIME [facility] Last Admin: 03/13/20 17:49 Dose: 100 mls/hr Documented by: Sodium Chloride (Normal Saline) 1,000 mls @ 75 mls/hr IV ASDIRECTED [facility] Last Admin: 03/14/20 02:37 Dose: 75 mls/hr Documented by: Piperacillin Sod/Tazobactam (Sod 3.375 gm/ Sodium Chloride) 50 mls @ 100 mls/hr IV Q6H [facility] Last Admin: 03/14/20 05:23 Dose: 100 mls/hr Documented by: Vancomycin HCl 1.6 gm/ Sodium (Chloride) 250 mls @ 166.667 mls/hr IV Q12H [facility] Last Admin: 03/18/20 07:55 Dose: 166.667 mls/hr Documented by: Latanoprost (Xalatan 0.005% Ophth Soln) 0 ml EYEBOTH BEDTIME [facility] Last Admin: 03/16/20 20:58 Dose: 1 drop Documented by: Magnesium Oxide (Magnesium Oxide) 400 mg PO BID [facility] Non-Formulary Medication (Acetaminophen [Tylenol Arthritis]) 650 mg PO ASDIRECTED PRN PRN Reason: Pain Non-Formulary Medication (Fluticasone Propionate [Flovent Hfa]) 1 spray INH DAILY PRN PRN Reason: Allergies Non-Formulary Medication (Latanoprost/Pf [Latanoprost 0.005% Eye Drop]) 1 drop EYEBOTH DAILY [facility] Non-Formulary Medication (Magnesium Oxide [Magnesium Oxide]) 420 mg PO BID [facility] Last Admin: 03/13/20 22:34 Dose: Not Given Documented by: Non-Formulary Medication (Terbinafine Hcl [Athlete's Foot]) 1 applic TOP BID PRN PRN Reason: .infection Vancomycin HCl (Vancomycin) 1 gm IV .PHARMACY TO DOSE MARLYN - Exam General: Alert, Oriented HEENT: Pupils Equal, Pupils Reactive Neck: Supple Lungs: Normal Respiratory Effort, Crackles (bilateral bases, IV lasix ordered) Cardiovascular: Regular Rate GI/Abdominal Exam: Normal Bowel Sounds, Soft, Non-Tender, No Organomegaly, No Mass (Male) Exam: Deferred Back Exam: Normal Inspection Extremities: Pedal Edema Wound/Incisions: Healing Well (left lower leg diabetic ulcer no signs of infection. Right medial inferior thigh cellulitis is now light pink and firm to touch, but no longer elicits pain and is not warm to touch. ) Neurological: No New Focal Deficit Psy/Mental Status: Alert, Normal Affect, Normal Mood Sepsis Event Note - Evaluation Sepsis Screening Result: No Definite Risk - Focused Exam Vital Signs: Vital Signs Temp Pulse Pulse Resp BP BP Pulse Ox 03/22/20 09:38 146/82 H 03/22/20 09:37 86 146/82 H 03/22/20 09:36 146/82 H 03/22/20 07:31 96.0 F L 74 18 118/88 95 03/22/20 03:00 95.9 F L 72 18 135/69 03/22/20 02:00 Pulse Ox 03/22/20 09:38 03/22/20 09:37 03/22/20 09:36 03/22/20 07:31 03/22/20 03:00 03/22/20 02:00 93 L - Problem List Review Problem List Initiated/Reviewed/Updated: Yes - My Orders Last 24 Hours: My Active Orders 03/21/20 12:25 CPAP Noctural Home [RT BiPAP/CPAP] [RC] ASDIRECTED 03/21/20 13:00 Lactobacillus Rhamnosus GG [Culturelle] 1 cap PO BID 03/22/20 10:43 Sodium Chloride 0.65% [[place] Nasal [place]] 1 ml LUZ Q2H PRN - Plan Plan:: ASSESSMENT AND PLAN CELLULITIS- right leg continues to slowly improve. Warm compresses are helping symptom improvement. -Zosyn 3.375 g IV every 6 hours -blood cultures x 2 are negative -consult to [facility] for evaluation of diabetic ulcer left lower leg at discharge -Elevate RLE, bilateral lower extremity edema wraps -Compression wrapping Atrial fibrillation- chronic. Vital signs otherwise stable. -Eliquis 5 mg po bid -continue outpatient medications Diabetes Type 2 -Insulin 70/30 give 5 units daily for blood glucose over 200 -Insulin short acting low dose sliding scale coverage -Blood glucose testing before meals and at bedtime Peripheral edema - improving -Hold oral furosemide -IV furosemide twice daily -Compression wrapping of legs bilaterally up to thighs MAINTENANCE ISSUES -DVT prophylaxis- Eliquis 5mg po bid -GI prophylaxis- Prilosec 40 mg po daily -Jeffers catheter- not indicated -Home CPAP usage, continue in hospital with home CPAP settings on personal CPAP machine -Nutrition- consistent carb diet -Nicotine dependence- non-smoker -Spiritual consult -PT consult for ambulation CODE STATUS-FULL CODE ADMISSION STATUS-patient will be admitted to inpatient status, expect at least a 2 night hospital stay for evaluation and management of problems as outlined above. At the time of this admission I do not reasonably expected evaluation and management of this problem will require more than a 96 hour hospital stay. DISPOSITION-anticipate discharge to home after the hospital stay. PRIMARY CARE PROVIDER-[facility]
[2020-03-22] MEDS ORDERED: Furosemide 40 MG/4 ML VIAL IVPUSH ONE (12:50)
[2020-03-22] MEDS: Cyclobenzaprine 10 MG Tab PO SCH ×2 (19:54→20:12)
[2020-03-22] MEDS: Latanoprost 0.005% Ophth Soln 2.5 ML Bottle EYELF SCH ×2 (19:55→20:12)
[2020-03-23] MEDS: Acetaminophen 325 MG Tab PO PRN (03:24)
[2020-03-23] MEDS: Piperacillin/Tazobactam/Dext 3.375 GM in Premix Bag 1 BAG IV SCH ×2 (06:08→12:45)
[2020-03-23] MEDS: Pantoprazole 40 MG Tab.CR PO SCH (07:33)
[2020-03-23] MEDS: Insulin Lispro 100 Unit/ML 3 ML KwikPen SUBCUT SCH ×4 (08:24→21:50)
[2020-03-23] MEDS ORDERED: Furosemide 40 MG/4 ML VIAL IVPUSH ONE ×2 (08:50→18:00)
[2020-03-23] MEDS: Chlorthalidone 25 MG Tab PO SCH (09:28)
[2020-03-23] MEDS: Lactobacillus Rhamnosus GG (Probiotic) Cap PO SCH ×2 (09:29→20:07)
[2020-03-23] MEDS: Aspirin 81 MG Tab.EC PO SCH (09:29)
[2020-03-23] MEDS: Apixaban 5 MG Tab PO SCH ×2 (09:29→20:07)
[2020-03-23] MEDS: Losartan 50 MG Tab PO SCH (09:29)
[2020-03-23] MEDS: atorvaSTATin 20 MG Tab PO SCH (09:29)
[2020-03-23] MEDS: Magnesium Oxide 400 MG Tab PO SCH ×2 (09:30→20:08)
[2020-03-23] MEDS: amLODIPine 5 MG Tab PO SCH (09:30)
[2020-03-23] MEDS: Gabapentin 300 MG Cap PO SCH ×3 (09:30→20:08)
[2020-03-23] MEDS: Acetaminophen 500 MG Tab PO SCH ×3 (09:31→20:08)
[2020-03-23] MEDS: Cetirizine 10 MG Tab PO SCH (09:31)
--- NOTE | 2020-03-23 13:08 | PCM.PN ---
- General Info Date of Service: 03/23/20 Subjective Update: Mr. Boucher has noted further improvement since yesterday with less peripheral edema and less induration/erythema in the right thigh. Vital signs have remained good and he has been afebrile. Overall energy level and appetite have been improved. He has less pain in the thigh associated with the infection. Functional Status: Reports: Tolerating Diet, Ambulating, Urinating - Review of Systems General: Reports: Weakness, Fatigue. Denies: Fever, Chills Pulmonary: Reports: No Symptoms Cardiovascular: Reports: No Symptoms Gastrointestinal: Reports: No Symptoms - Patient Data Vitals - Most Recent: Last Vital Signs Temp 97.1 F 03/23/20 10:23 Pulse 65 03/23/20 10:23 Resp 18 03/23/20 03:21 BP 123/69 03/23/20 10:23 Pulse Ox 96 03/23/20 10:26 Weight - Most Recent: 268 lb 1.314 oz I&O - Last 24 Hours: Intake & Output 03/22/20 03/23/20 03/23/20 22:59 06:59 14:59 Intake Total 350 100 Output Total 1500 200 Balance -1150 -100 Lab Results Last 24 Hours: Laboratory Results - last 24 hr 03/22/20 03/22/20 03/23/20 Range/Units 16:30 21:00 04:16 WBC (4.5-11.0) K/uL RBC (4.30-5.90) M/uL Hgb (12.0-15.0) g/dL Hct (40.0-54.0) % MCV (80-98) fL MCH (27-31) pg MCHC (32-36) % Plt Count (150-400) K/uL Neut % (Auto) (36-66) % Lymph % (Auto) (24-44) % [place] % (Auto) (2-6) % Eos % (Auto) (2-4) % Baso % (Auto) (0-1) % Sodium 138 L (140-148) mmol/L Potassium 4.1 (3.6-5.2) mmol/L Chloride 101 (100-108) mmol/L Carbon Dioxide 30 (21-32) mmol/L Anion Gap 11.1 (5.0-14.0) mmol/L BUN 13 (7-18) mg/dL Creatinine 1.1 (0.8-1.3) mg/dL Est Cr Clr Drug Dosing 64.39 mL/min Estimated GFR (MDRD) > 60 (>60) Glucose 155 H (74-106) mg/dL POC Glucose 176 H 191 H (74-106) MG/DL Calcium 8.7 (8.5-10.1) mg/dL 03/23/20 03/23/20 03/23/20 Range/Units 04:16 07:30 11:30 WBC 7.2 (4.5-11.0) K/uL RBC 4.55 (4.30-5.90) M/uL Hgb 10.7 L (12.0-15.0) g/dL Hct 36.5 L (40.0-54.0) % MCV 80 (80-98) fL MCH 24 L (27-31) pg MCHC 29 L (32-36) % Plt Count 410 H (150-400) K/uL Neut % (Auto) 70 H (36-66) % Lymph % (Auto) 14 L (24-44) % [place] % (Auto) 12 H (2-6) % Eos % (Auto) 3 (2-4) % Baso % (Auto) 1 (0-1) % Sodium (140-148) mmol/L Potassium (3.6-5.2) mmol/L Chloride (100-108) mmol/L Carbon Dioxide (21-32) mmol/L Anion Gap (5.0-14.0) mmol/L BUN (7-18) mg/dL Creatinine (0.8-1.3) mg/dL Est Cr Clr Drug Dosing mL/min Estimated GFR (MDRD) (>60) Glucose (74-106) mg/dL POC Glucose 153 H 175 H (74-106) MG/DL Calcium (8.5-10.1) mg/dL Med Orders - Current: Current Medications Acetaminophen (Tylenol) 650 mg PO Q4H PRN PRN Reason: Pain (Mild 1-3)/fever Last Admin: 03/23/20 03:24 Dose: 650 mg Documented by: Acetaminophen (Tylenol Extra Strength) 1,000 mg PO TID [facility] Last Admin: 03/23/20 09:31 Dose: 1,000 mg Documented by: Albuterol (Proventil Neb Soln) 2.5 mg NEB Q4H PRN PRN Reason: Shortness Of Breath/wheezing Last Admin: 03/21/20 02:40 Dose: 2.5 mg Documented by: Amlodipine Besylate (Norvasc) 10 mg PO DAILY [facility] Last Admin: 03/23/20 09:30 Dose: 10 mg Documented by: Amoxicillin/Clavulanate Potassium (Augmentin 875 Mg/125 Mg) 1 tab PO Q12HR [facility] Apixaban (Eliquis) 5 mg PO BID [facility] Last Admin: 03/23/20 09:29 Dose: 5 mg Documented by: Aspirin (Halfprin) 81 mg PO DAILY [facility] Last Admin: 03/23/20 09:29 Dose: 81 mg Documented by: Atorvastatin Calcium (Lipitor) 40 mg PO DAILY [facility] Last Admin: 03/23/20 09:29 Dose: 40 mg Documented by: Bisacodyl (Dulcolax) 5 mg PO DAILY PRN PRN Reason: Constipation Cetirizine HCl (Zyrtec) 10 mg PO DAILY [facility] Last Admin: 03/23/20 09:31 Dose: 10 mg Documented by: Chlorthalidone (Chlorthalidone) 12.5 mg PO DAILY [facility] Last Admin: 03/23/20 09:28 Dose: 12.5 mg Documented by: Cyclobenzaprine HCl (Flexeril) 10 mg PO BEDTIME [facility] Last Admin: 03/22/20 20:12 Dose: Not Given Documented by: Docusate Sodium (Colace) 100 mg PO BID PRN PRN Reason: Constipation Fluticasone Propionate (Flonase) 0 gm NASBOTH DAILY PRN PRN Reason: ALLERGIES Last Admin: 03/20/20 09:04 Dose: 1 spray Documented by: Furosemide (Lasix) 40 mg IVPUSH NOW ONE Stop: 03/23/20 18:01 Gabapentin (Neurontin) 300 mg PO TID [facility] Last Admin: 03/23/20 09:30 Dose: 300 mg Documented by: Insulin Human Isoph/Insulin Regular (Humulin 70-30) 5 units SUBCUT ACBREAKFAST PRN PRN Reason: Blood Glucose GREATER THAN 200 Insulin Human Lispro (Humalog) 0 unit SUBCUT QIDACANDBED [facility]; Protocol Last Admin: 03/23/20 12:26 Dose: 1 unit Documented by: Lactobacillus Rhamnosus (Culturelle) 1 cap PO BID [facility] Last Admin: 03/23/20 09:29 Dose: 1 cap Documented by: Latanoprost (Xalatan 0.005% Ophth Soln) 0 ml EYELF BEDTIME [facility] Last Admin: 03/22/20 20:12 Dose: Not Given Documented by: Lorazepam (Ativan) 1 mg IV Q6H PRN PRN Reason: Nausea/Vomiting Losartan Potassium (Cozaar) 100 mg PO DAILY [facility] Last Admin: 03/23/20 09:29 Dose: 100 mg Documented by: Magnesium Oxide (Magnesium Oxide) 400 mg PO BID [facility] Last Admin: 03/23/20 09:30 Dose: 400 mg Documented by: Melatonin (Melatonin) 9 mg PO BEDTIME PRN PRN Reason: Insomnia Last Admin: 03/20/20 20:54 Dose: 9 mg Documented by: Metoprolol Succinate 50 mg/ (Metoprolol Succinate 25 mg) 75 mg PO DAILY [facility] Last Admin: 03/23/20 09:31 Dose: 75 mg Documented by: Nitroglycerin (Nitrostat) 0.4 mg SL ASDIRECTED PRN PRN Reason: Chest Pain Ondansetron HCl (Zofran Odt) 4 mg PO Q6H PRN PRN Reason: Nausea able to take PO Oxycodone HCl (Oxycodone) 10 mg PO Q4H PRN PRN Reason: Pain (moderate 4-6) Pantoprazole Sodium (Protonix) 40 mg PO ACBREAKFAST [facility] Last Admin: 03/23/20 07:33 Dose: 40 mg Documented by: Terbinafine Cream ( (Ptom)) 0 each TOP BID PRN PRN Reason: RASH Sodium Chloride ([place] Nasal [place]) 0 ml LUZ Q2H PRN PRN Reason: Nasal Dryness Last Admin: 03/22/20 13:59 Dose: 1 spray Documented by: Temazepam (Restoril) 15 mg PO BEDTIME PRN PRN Reason: Sleep Last Admin: 03/13/20 20:55 Dose: 15 mg Documented by: Triamcinolone Acetonide (Triamcinolone Acetonide 0.1% Crm) 0 gm TOP BID PRN PRN Reason: Rash Discontinued Medications Furosemide 40 mg/ Furosemide (20 mg) 60 mg PO DAILY [facility] Last Admin: 03/18/20 08:49 Dose: 60 mg Documented by: Furosemide (Lasix) 40 mg IVPUSH NOW ONE Stop: 03/18/20 16:01 Last Admin: 03/18/20 17:22 Dose: 40 mg Documented by: Furosemide (Lasix) 40 mg IVPUSH NOW ONE Stop: 03/19/20 08:46 Last Admin: 03/19/20 08:47 Dose: 40 mg Documented by: Furosemide (Lasix) 40 mg IVPUSH ONETIME ONE Stop: 03/19/20 17:01 Last Admin: 03/19/20 17:18 Dose: 40 mg Documented by: Furosemide (Lasix) 20 mg IVPUSH NOW ONE Stop: 03/20/20 19:16 Furosemide (Lasix) 40 mg IVPUSH NOW ONE Stop: 03/20/20 19:16 Last Admin: 03/20/20 20:47 Dose: 40 mg Documented by: Furosemide (Lasix) 40 mg IVPUSH NOW ONE Stop: 03/21/20 12:31 Last Admin: 03/21/20 12:29 Dose: 40 mg Documented by: Furosemide (Lasix) 40 mg IVPUSH NOW ONE Stop: 03/22/20 12:51 Last Admin: 03/22/20 13:52 Dose: 40 mg Documented by: Furosemide (Lasix) 40 mg IVPUSH NOW ONE Stop: 03/23/20 08:51 Last Admin: 03/23/20 09:05 Dose: 40 mg Documented by: Vancomycin HCl 1 gm/ Sodium (Chloride) 250 mls @ 150 mls/hr IV ONETIME ONE Stop: 03/13/20 18:59 Last Admin: 03/13/20 17:51 Dose: 150 mls/hr Documented by: Piperacillin Sod/Tazobactam (Sod 3.375 gm/ Sodium Chloride) 50 mls @ 100 mls/hr IV ONETIME [facility] Last Admin: 03/13/20 17:49 Dose: 100 mls/hr Documented by: Sodium Chloride (Normal Saline) 1,000 mls @ 75 mls/hr IV ASDIRECTED [facility] Last Admin: 03/14/20 02:37 Dose: 75 mls/hr Documented by: Piperacillin Sod/Tazobactam (Sod 3.375 gm/ Sodium Chloride) 50 mls @ 100 mls/hr IV Q6H [facility] Last Admin: 03/14/20 05:23 Dose: 100 mls/hr Documented by: Piperacillin/Tazobactam/ (Dextrose 3.375 gm/ Premix) 50 mls @ 100 mls/hr IV Q6H [facility] Last Admin: 03/23/20 12:45 Dose: 100 mls/hr Documented by: Vancomycin HCl 1.6 gm/ Sodium (Chloride) 250 mls @ 166.667 mls/hr IV Q12H [facility] Last Admin: 03/18/20 07:55 Dose: 166.667 mls/hr Documented by: Latanoprost (Xalatan 0.005% Ophth Soln) 0 ml EYEBOTH BEDTIME [facility] Last Admin: 03/16/20 20:58 Dose: 1 drop Documented by: Magnesium Oxide (Magnesium Oxide) 400 mg PO BID [facility] Non-Formulary Medication (Acetaminophen [Tylenol Arthritis]) 650 mg PO ASDIRECTED PRN PRN Reason: Pain Non-Formulary Medication (Fluticasone Propionate [Flovent Hfa]) 1 spray INH DAILY PRN PRN Reason: Allergies Non-Formulary Medication (Latanoprost/Pf [Latanoprost 0.005% Eye Drop]) 1 drop EYEBOTH DAILY [facility] Non-Formulary Medication (Magnesium Oxide [Magnesium Oxide]) 420 mg PO BID [facility] Last Admin: 03/13/20 22:34 Dose: Not Given Documented by: Non-Formulary Medication (Terbinafine Hcl [Athlete's Foot]) 1 applic TOP BID PRN PRN Reason: .infection Vancomycin HCl (Vancomycin) 1 gm IV .PHARMACY TO DOSE MARLYN - Exam Quality Assessment: DVT Prophylaxis General: Alert, Oriented, Cooperative, Mild Distress Lungs: Clear to Auscultation, Normal Respiratory Effort Cardiovascular: Regular Rate, Regular Rhythm, No Murmurs GI/Abdominal Exam: Soft, Non-Tender, No Organomegaly, No Distention Extremities: Other (Erythema and induration right thigh improved over the last 24 hours) Sepsis Event Note - Evaluation Sepsis Screening Result: No Definite Risk - Focused Exam Vital Signs: Vital Signs Temp Pulse Pulse Resp BP BP Pulse Ox 03/23/20 10:26 03/23/20 10:23 97.1 F 65 123/69 96 03/23/20 09:31 65 123/69 03/23/20 09:30 123/69 03/23/20 09:29 123/69 03/23/20 03:21 96.2 F L 67 18 128/63 97 Pulse Ox 03/23/20 10:26 96 03/23/20 10:23 03/23/20 09:31 03/23/20 09:30 03/23/20 09:29 03/23/20 03:21 - Problem List Review Problem List Initiated/Reviewed/Updated: Yes - My Orders Last 24 Hours: My Active Orders 03/23/20 16:30 GLUCOSE POC LAB TO COLLECT JPM [POC] QIDACANDBED 03/23/20 18:00 Furosemide [Lasix] 40 mg IVPUSH NOW ONE 03/23/20 20:00 Amoxicillin/Clavulanate K [Augmentin 875 MG/125 MG] 1 tab PO Q12HR 03/23/20 21:00 GLUCOSE POC LAB TO COLLECT JPM [POC] QIDACANDBED 03/24/20 05:00 BASIC METABOLIC PANEL,BMP [CHEM] Timed 03/24/20 07:30 GLUCOSE POC LAB TO COLLECT JPM [POC] QIDACANDBED 03/24/20 11:30 GLUCOSE POC LAB TO COLLECT JPM [POC] QIDACANDBED 03/24/20 16:30 GLUCOSE POC LAB TO COLLECT JPM [POC] QIDACANDBED 03/24/20 21:00 GLUCOSE POC LAB TO COLLECT JPM [POC] QIDACANDBED 03/25/20 07:30 GLUCOSE POC LAB TO COLLECT JPM [POC] QIDACANDBED 03/25/20 11:30 GLUCOSE POC LAB TO COLLECT JPM [POC] QIDACANDBED 03/25/20 16:30 GLUCOSE POC LAB TO COLLECT JPM [POC] QIDACANDBED 03/25/20 21:00 GLUCOSE POC LAB TO COLLECT JPM [POC] QIDACANDBED 03/26/20 07:30 GLUCOSE POC LAB TO COLLECT JPM [POC] QIDACANDBED - Plan Plan:: ASSESSMENT AND PLAN CELLULITIS- right leg continues to slowly improve. -Discontinue Zosyn -Augmentin 875 1 p.o. twice daily -blood cultures x 2 are negative -consult to [facility] for evaluation of diabetic ulcer left lower leg at discharge -Elevate RLE, bilateral lower extremity edema wraps -Compression wrapping Atrial fibrillation- chronic. Vital signs otherwise stable. -Eliquis 5 mg po bid -continue outpatient medications Diabetes Type 2 -Insulin 70/30 give 5 units daily for blood glucose over 200 -Insulin short acting low dose sliding scale coverage -Blood glucose testing before meals and at bedtime Peripheral edema - improving -Hold oral furosemide -IV furosemide twice daily -Compression wrapping of legs bilaterally up to thighs MAINTENANCE ISSUES -DVT prophylaxis- Eliquis 5mg po bid -GI prophylaxis- Prilosec 40 mg po daily -[place] catheter- not indicated -Home CPAP usage, continue in hospital with home CPAP settings on personal CPAP machine -Nutrition- consistent carb diet -Nicotine dependence- non-smoker -Spiritual consult -PT consult for ambulation CODE STATUS-FULL CODE ADMISSION STATUS-patient will be admitted to inpatient status, expect at least a 2 night hospital stay for evaluation and management of problems as outlined above. At the time of this admission I do not reasonably expected evaluation and management of this problem will require more than a 96 hour hospital stay. DISPOSITION-anticipate discharge to home tomorrow PRIMARY CARE PROVIDER-[facility]
[2020-03-23] MEDS: Amoxicillin/Clavulanate K 875-125 MG Tab PO SCH (20:06)
[2020-03-23] MEDS: Cyclobenzaprine 10 MG Tab PO SCH (20:07)
[2020-03-23] MEDS: Latanoprost 0.005% Ophth Soln 2.5 ML Bottle EYELF SCH (20:09)
[2020-03-24] MEDS: Pantoprazole 40 MG Tab.CR PO SCH (07:32)
[2020-03-24] MEDS: Insulin Lispro 100 Unit/ML 3 ML KwikPen SUBCUT SCH ×2 (08:30→12:38)
[2020-03-24] MEDS: Losartan 50 MG Tab PO SCH (08:47)
[2020-03-24] MEDS: Chlorthalidone 25 MG Tab PO SCH (08:47)
[2020-03-24] MEDS: Amoxicillin/Clavulanate K 875-125 MG Tab PO SCH (08:47)
[2020-03-24] MEDS: Lactobacillus Rhamnosus GG (Probiotic) Cap PO SCH (08:48)
[2020-03-24] MEDS: Apixaban 5 MG Tab PO SCH (08:49)
[2020-03-24] MEDS: Aspirin 81 MG Tab.EC PO SCH (08:50)
[2020-03-24] MEDS: atorvaSTATin 20 MG Tab PO SCH (08:50)
[2020-03-24] MEDS: amLODIPine 5 MG Tab PO SCH (08:51)
[2020-03-24] MEDS: Gabapentin 300 MG Cap PO SCH (08:51)
[2020-03-24] MEDS: Magnesium Oxide 400 MG Tab PO SCH (08:51)
[2020-03-24] MEDS: Acetaminophen 500 MG Tab PO SCH (08:53)
[2020-03-24] MEDS: Cetirizine 10 MG Tab PO SCH (08:53)
--- NOTE | 2020-03-24 12:03 | PCM.DCSUM1 ---
Discharge Summary - Hospital Course Brief History: Mr. Boucher is a 74-year-old gentleman who was admitted through the emergency department with weakness and pain in his right lower extremity secondary to peripheral edema and cellulitis. - Discharge Data Discharge Date: 03/24/20 Discharge Disposition: Home, Self-Care 01 Condition: Fair - Referral to Home Health Primary Care Physician: Aleida Mark NP - Discharge Diagnosis/Problem(s) (1) Cellulitis of leg, right SNOMED Code(s): 953701458 ICD Code: L03.115 - CELLULITIS OF RIGHT LOWER LIMB Status: Acute Current Visit: Yes (2) Atrial fibrillation SNOMED Code(s): 49964502 ICD Code: I48.91 - UNSPECIFIED ATRIAL FIBRILLATION Status: Acute Current Visit: Yes Qualifiers: Atrial fibrillation type: longstanding persistent Qualified Code(s): I48.11 - Longstanding persistent atrial fibrillation (3) Bilateral lower extremity edema SNOMED Code(s): 817848851, 57702016, 051360651 ICD Code: R60.0 - LOCALIZED EDEMA Status: Acute Current Visit: Yes (4) Weakness SNOMED Code(s): 89494820 ICD Code: R53.1 - WEAKNESS Status: Acute Current Visit: No (5) Diabetes mellitus type 2 with complications SNOMED Code(s): 41401488, 655690754 ICD Code: E11.8 - TYPE 2 DIABETES MELLITUS WITH UNSPECIFIED COMPLICATIONS Status: Acute Priority: Medium Current Visit: Yes - Patient Summary/Data Consults: Consultations 03/13/20 20:00 Consult to Physician [CONS] Routine Consulting Provider: Robbie Fraser Call Completed to Consulting Physician: No Reason for Consult: wound clinic- dm ulcer to left lower leg and right cellulitis PT Evaluation and Treatment [CONS] Routine Please Evaluate and Treat. PT Reason for Consult: Ambulation This query below is only for informational purposes and is not editable. 03/15/20 10:39 Consult to Dietary [Consult to Terrazzo Roller] [CONS] Routine Comment: Physician Instructions: Quantity: Special Instructions: instruct on low sodium diet Hospital Course: 74-year-old male who was sent down for evaluation and likely admission for cellulitis of his right leg by the [facility] in [place]. He had a home health visit with the nurse today that trimmed his callus on his right foot, he is following an ulcer on the right toe but she said it is "healing nicely". He wears a compression sleeve on his left lower leg because of persistent edema and weeping blisters. His right leg however has formed painful erythema through the foot and up along the medial aspect of the go most of the groin. He has diffuse swelling around the knee, it is warm and painful to palpation. He does not however have a fever. White blood cell count was found to be within normal range. Blood cultures were obtained and he was started on IV antibiotic therapy with Zosyn and vancomycin. Expanded IV antibiotic coverage was started because of his underlying type 2 diabetes mellitus. Through the course of his hospital stay there was gradual improvement in the cellulitis and had almost totally resolved by the time of discharge. There was still an area of residual erythema noted in the right thigh. Ultrasound was obtained during hospitalization and there was no evidence of underlying abscess in this area. He did receive probiotic therapy through his hospital stay and was transitioned to oral antibiotic therapy with Augmentin 875 1 p.o. twice daily. Augmentin will be continued for an additional 6 days following discharge. Diabetes control was monitored and managed throughout his hospital stay. He did receive diuretic therapy throughout his hospital stay for management of his peripheral edema. By the time of discharge edema had improved significantly but not totally resolved. His dose of furosemide will be increased on discharge to 40 mg twice daily. Activity will be as tolerated and he will resume his usual diet. Follow-up appointment will be scheduled with his primary care provider within 1 week. - Patient Instructions Diet: Diabetic Diet Activity: As Tolerated Other/Special Instructions: Please schedule follow-up appointment with primary care provider within 1 week. - Discharge Plan *PRESCRIPTION DRUG MONITORING PROGRAM REVIEWED*: Not Applicable *COPY OF PRESCRIPTION DRUG MONITORING REPORT IN PATIENT KATHY: Not Applicable Prescriptions/Med Rec: Amoxicillin/Clavulanate K [Augmentin 875-125 MG] 1 tab PO Q12H #12 tablet Lactobacillus Rhamnosus GG [Culturelle] 1 cap PO BID #60 cap Home Medications: Home Meds Apixaban [Eliquis] 5 mg PO BID 07/25/19 [History] Calcium Citrate/Vitamin D3 [Calcium Cit 315 mg-D3 250 Unit] 2 each PO DAILY 07/25/19 [History] Cetirizine [ZyrTEC] 10 mg PO DAILY 07/25/19 [History] Chlorthalidone 12.5 mg PO DAILY 07/25/19 [History] Cholecalciferol (Vitamin D3) [Vitamin D3] 2,000 unit PO DAILY 07/25/19 [History] Cyclobenzaprine HCl 10 mg PO BEDTIME 07/25/19 [History] Gabapentin [Neurontin] 300 mg PO TID 07/25/19 [History] Insulin NPH/Insulin Reg,Human [Novolin 70-30] 5 units SQ ASDIRECTED PRN 07/25/19 [History] Latanoprost/Pf [Latanoprost 0.005% Eye Drop] 1 drop EYEBOTH DAILY 07/25/19 [History] Losartan [Cozaar] 100 mg PO DAILY 07/25/19 [History] Magnesium Oxide 420 mg PO BID 07/25/19 [History] Metoprolol Succinate [Toprol XL 50mg] 75 mg PO DAILY 07/25/19 [History] Nitroglycerin 0.4 mg SL ASDIRECTED PRN 07/25/19 [History] Omeprazole 40 mg PO DAILY 07/25/19 [History] Pseudoephedrine HCl 60 mg PO BID 07/25/19 [History] Triamcinolone Acetonide [Triamcinolone Acetonide 0.1% Crm] 1 applic TOP BID PRN 07/25/19 [History] amLODIPine Besylate [Amlodipine Besylate] 10 mg PO DAILY 07/25/19 [History] atorvaSTATin [Lipitor] 40 mg PO DAILY 07/25/19 [History] metFORMIN HCl [Fortamet] 1,000 mg PO BID 07/25/19 [History] terbinafine HCL [Athlete's Foot] 1 applic TOP BID PRN 07/25/19 [History] Acetaminophen [Tylenol Arthritis] 650 mg PO TID 07/28/19 [History] Aspirin [Halfprin] 81 mg PO DAILY 07/28/19 [History] Fish Oil/[place]-3 Fatty Acids [Fish Oil 1,000 MG] 2 each PO DAILY 07/28/19 [History] Multivitamin [Multi-Day Vitamins] 1 each PO DAILY 07/28/19 [History] Vitamin E 400 unit PO DAILY 07/28/19 [History] Amoxicillin/Clavulanate K [Augmentin 875-125 MG] 1 tab PO Q12H #12 tablet 03/24/20 [Rx] Furosemide [Lasix] 40 mg PO BID #60 11/15/20 [Rx] Lactobacillus Rhamnosus GG [Culturelle] 1 cap PO BID #60 cap 03/24/20 [Rx] Patient Handouts: Cellulitis, Adult, [id number] Referrals: Aleida Mark, [employer] DIRECT[employer] [Primary Care Provider] - - Discharge Summary/Plan Comment DC Time >30 min.: No - Patient Data Vitals - Most Recent: Last Vital Signs Temp 97.7 F 03/24/20 11:34 Pulse 78 03/24/20 08:52 Resp 18 03/24/20 11:34 BP 118/66 03/24/20 11:34 Pulse Ox 95 03/24/20 11:34 Weight - Most Recent: 551 lb 2.49 oz I&O - Last 24 hours: Intake & Output 03/23/20 03/24/20 03/24/20 22:59 06:59 14:59 Intake Total 600 800 Output Total 525 950 350 Balance 75 -150 -350 Lab Results - Last 24 hrs: Laboratory Results - last 24 hr 03/23/20 03/23/20 03/23/20 Range/Units 11:30 16:30 21:15 Sodium (140-148) mmol/L Potassium (3.6-5.2) mmol/L Chloride (100-108) mmol/L Carbon Dioxide (21-32) mmol/L Anion Gap (5.0-14.0) mmol/L BUN (7-18) mg/dL Creatinine (0.8-1.3) mg/dL Est Cr Clr Drug Dosing mL/min Estimated GFR (MDRD) (>60) Glucose (74-106) mg/dL POC Glucose 175 H 192 H 198 H (74-106) MG/DL Calcium (8.5-10.1) mg/dL 03/24/20 03/24/20 Range/Units 05:00 07:37 Sodium 137 L (140-148) mmol/L Potassium 4.0 (3.6-5.2) mmol/L Chloride 100 (100-108) mmol/L Carbon Dioxide 30 (21-32) mmol/L Anion Gap 11.0 (5.0-14.0) mmol/L BUN 13 (7-18) mg/dL Creatinine 1.1 (0.8-1.3) mg/dL Est Cr Clr Drug Dosing 64.65 mL/min Estimated GFR (MDRD) > 60 (>60) Glucose 161 H (74-106) mg/dL POC Glucose 157 H (74-106) MG/DL Calcium 8.9 (8.5-10.1) mg/dL Med Orders - Current: Current Medications Acetaminophen (Tylenol) 650 mg PO Q4H PRN PRN Reason: Pain (Mild 1-3)/fever Last Admin: 03/23/20 03:24 Dose: 650 mg Documented by: Acetaminophen (Tylenol Extra Strength) 1,000 mg PO TID [facility] Last Admin: 03/24/20 08:53 Dose: 1,000 mg Documented by: Albuterol (Proventil Neb Soln) 2.5 mg NEB Q4H PRN PRN Reason: Shortness Of Breath/wheezing Last Admin: 03/21/20 02:40 Dose: 2.5 mg Documented by: Amlodipine Besylate (Norvasc) 10 mg PO DAILY [facility] Last Admin: 03/24/20 08:51 Dose: 10 mg Documented by: Amoxicillin/Clavulanate Potassium (Augmentin 875 Mg/125 Mg) 1 tab PO Q12H [facility] Last Admin: 03/24/20 08:47 Dose: 1 tab Documented by: Apixaban (Eliquis) 5 mg PO BID [facility] Last Admin: 03/24/20 08:49 Dose: 5 mg Documented by: Aspirin (Halfprin) 81 mg PO DAILY [facility] Last Admin: 03/24/20 08:50 Dose: 81 mg Documented by: Atorvastatin Calcium (Lipitor) 40 mg PO DAILY [facility] Last Admin: 03/24/20 08:50 Dose: 40 mg Documented by: Bisacodyl (Dulcolax) 5 mg PO DAILY PRN PRN Reason: Constipation Cetirizine HCl (Zyrtec) 10 mg PO DAILY [facility] Last Admin: 03/24/20 08:53 Dose: 10 mg Documented by: Chlorthalidone (Chlorthalidone) 12.5 mg PO DAILY [facility] Last Admin: 03/24/20 08:47 Dose: 12.5 mg Documented by: Cyclobenzaprine HCl (Flexeril) 10 mg PO BEDTIME [facility] Last Admin: 03/23/20 20:07 Dose: 10 mg Documented by: Docusate Sodium (Colace) 100 mg PO BID PRN PRN Reason: Constipation Fluticasone Propionate (Flonase) 0 gm NASBOTH DAILY PRN PRN Reason: ALLERGIES Last Admin: 03/20/20 09:04 Dose: 1 spray Documented by: Gabapentin (Neurontin) 300 mg PO TID [facility] Last Admin: 03/24/20 08:51 Dose: 300 mg Documented by: Insulin Human Isoph/Insulin Regular (Humulin 70-30) 5 units SUBCUT ACBREAKFAST PRN PRN Reason: Blood Glucose GREATER THAN 200 Insulin Human Lispro (Humalog) 0 unit SUBCUT QIDACANDBED [facility]; Protocol Last Admin: 03/24/20 08:30 Dose: 1 unit Documented by: Lactobacillus Rhamnosus (Culturelle) 1 cap PO BID [facility] Last Admin: 03/24/20 08:48 Dose: 1 cap Documented by: Latanoprost (Xalatan 0.005% Ophth Soln) 0 ml EYELF BEDTIME [facility] Last Admin: 03/23/20 20:09 Dose: 1 drop Documented by: Lorazepam (Ativan) 1 mg IV Q6H PRN PRN Reason: Nausea/Vomiting Losartan Potassium (Cozaar) 100 mg PO DAILY [facility] Last Admin: 03/24/20 08:47 Dose: 100 mg Documented by: Magnesium Oxide (Magnesium Oxide) 400 mg PO BID [facility] Last Admin: 03/24/20 08:51 Dose: 400 mg Documented by: Melatonin (Melatonin) 9 mg PO BEDTIME PRN PRN Reason: Insomnia Last Admin: 03/20/20 20:54 Dose: 9 mg Documented by: Metoprolol Succinate 50 mg/ (Metoprolol Succinate 25 mg) 75 mg PO DAILY [facility] Last Admin: 03/24/20 08:52 Dose: 75 mg Documented by: Nitroglycerin (Nitrostat) 0.4 mg SL ASDIRECTED PRN PRN Reason: Chest Pain Ondansetron HCl (Zofran Odt) 4 mg PO Q6H PRN PRN Reason: Nausea able to take PO Oxycodone HCl (Oxycodone) 10 mg PO Q4H PRN PRN Reason: Pain (moderate 4-6) Pantoprazole Sodium (Protonix) 40 mg PO ACBREAKFAST [facility] Last Admin: 03/24/20 07:32 Dose: 40 mg Documented by: Terbinafine Cream ( (Ptom)) 0 each TOP BID PRN PRN Reason: RASH Sodium Chloride ([place] Nasal [facility]) 0 ml LUZ Q2H PRN PRN Reason: Nasal Dryness Last Admin: 03/22/20 13:59 Dose: 1 spray Documented by: Temazepam (Restoril) 15 mg PO BEDTIME PRN PRN Reason: Sleep Last Admin: 03/13/20 20:55 Dose: 15 mg Documented by: Triamcinolone Acetonide (Triamcinolone Acetonide 0.1% Crm) 0 gm TOP BID PRN PRN Reason: Rash Discontinued Medications Furosemide 40 mg/ Furosemide (20 mg) 60 mg PO DAILY [facility] Last Admin: 03/18/20 08:49 Dose: 60 mg Documented by: Furosemide (Lasix) 40 mg IVPUSH NOW ONE Stop: 03/18/20 16:01 Last Admin: 03/18/20 17:22 Dose: 40 mg Documented by: Furosemide (Lasix) 40 mg IVPUSH NOW ONE Stop: 03/19/20 08:46 Last Admin: 03/19/20 08:47 Dose: 40 mg Documented by: Furosemide (Lasix) 40 mg IVPUSH ONETIME ONE Stop: 03/19/20 17:01 Last Admin: 03/19/20 17:18 Dose: 40 mg Documented by: Furosemide (Lasix) 20 mg IVPUSH NOW ONE Stop: 03/20/20 19:16 Furosemide (Lasix) 40 mg IVPUSH NOW ONE Stop: 03/20/20 19:16 Last Admin: 03/20/20 20:47 Dose: 40 mg Documented by: Furosemide (Lasix) 40 mg IVPUSH NOW ONE Stop: 03/21/20 12:31 Last Admin: 03/21/20 12:29 Dose: 40 mg Documented by: Furosemide (Lasix) 40 mg IVPUSH NOW ONE Stop: 03/22/20 12:51 Last Admin: 03/22/20 13:52 Dose: 40 mg Documented by: Furosemide (Lasix) 40 mg IVPUSH NOW ONE Stop: 03/23/20 08:51 Last Admin: 03/23/20 09:05 Dose: 40 mg Documented by: Furosemide (Lasix) 40 mg IVPUSH NOW ONE Stop: 03/23/20 18:01 Last Admin: 03/23/20 17:05 Dose: 40 mg Documented by: Vancomycin HCl 1 gm/ Sodium (Chloride) 250 mls @ 150 mls/hr IV ONETIME ONE Stop: 03/13/20 18:59 Last Admin: 03/13/20 17:51 Dose: 150 mls/hr Documented by: Piperacillin Sod/Tazobactam (Sod 3.375 gm/ Sodium Chloride) 50 mls @ 100 mls/hr IV ONETIME [facility] Last Admin: 03/13/20 17:49 Dose: 100 mls/hr Documented by: Sodium Chloride (Normal Saline) 1,000 mls @ 75 mls/hr IV ASDIRECTED [facility] Last Admin: 03/14/20 02:37 Dose: 75 mls/hr Documented by: Piperacillin Sod/Tazobactam (Sod 3.375 gm/ Sodium Chloride) 50 mls @ 100 mls/hr IV Q6H [facility] Last Admin: 03/14/20 05:23 Dose: 100 mls/hr Documented by: Piperacillin/Tazobactam/ (Dextrose 3.375 gm/ Premix) 50 mls @ 100 mls/hr IV Q6H [facility] Last Admin: 03/23/20 12:45 Dose: 100 mls/hr Documented by: Vancomycin HCl 1.6 gm/ Sodium (Chloride) 250 mls @ 166.667 mls/hr IV Q12H [facility] Last Admin: 03/18/20 07:55 Dose: 166.667 mls/hr Documented by: Latanoprost (Xalatan 0.005% Ophth Soln) 0 ml EYEBOTH BEDTIME [facility] Last Admin: 03/16/20 20:58 Dose: 1 drop Documented by: Magnesium Oxide (Magnesium Oxide) 400 mg PO BID [facility] Non-Formulary Medication (Acetaminophen [Tylenol Arthritis]) 650 mg PO ASDIRECTED PRN PRN Reason: Pain Non-Formulary Medication (Fluticasone Propionate [Flovent Hfa]) 1 spray INH DAILY PRN PRN Reason: Allergies Non-Formulary Medication (Latanoprost/Pf [Latanoprost 0.005% Eye Drop]) 1 drop EYEBOTH DAILY [facility] Non-Formulary Medication (Magnesium Oxide [Magnesium Oxide]) 420 mg PO BID [facility] Last Admin: 03/13/20 22:34 Dose: Not Given Documented by: Non-Formulary Medication (Terbinafine Hcl [Athlete's Foot]) 1 applic TOP BID PRN PRN Reason: .infection Vancomycin HCl (Vancomycin) 1 gm IV .PHARMACY TO DOSE [facility] - Exam Quality Assessment: Reports: DVT Prophylaxis General: Reports: Alert, Oriented, Cooperative, Mild Distress Lungs: Reports: Clear to Auscultation, Normal Respiratory Effort Cardiovascular: Reports: Regular Rate, Regular Rhythm, No Murmurs GI/Abdominal Exam: Soft, Non-Tender, No Organomegaly, No Distention Extremities: Non-Tender, Pedal Edema
== END 2020-03-24 13:26 | disposition home or self-care (01) | DRG 638 ==
LOC: JP.ED 16:05 → JP.MS 19:37
PROVIDERS: ADMIT Hospitalist; ATTEND Hospitalist
DX: E11.628 Type 2 diabetes mellitus with other skin complications (principal); L03.115 Cellulitis of right lower limb; I48.11 Longstanding persistent atrial fibrillation; Z79.4 Long term (current) use of insulin; Z79.01 Long term (current) use of anticoagulants; Z79.899 Other long term (current) drug therapy; E11.40 Type 2 diabetes mellitus with diabetic neuropathy, unspecified; Z88.5 Allergy status to narcotic agent; Z87.891 Personal history of nicotine dependence; Z88.6 Allergy status to analgesic agent; Z91.048 Other nonmedicinal substance allergy status; Z91.09 Other allergy status, other than to drugs and biological substances; Z79.82 Long term (current) use of aspirin; E78.00 Pure hypercholesterolemia, unspecified; I10 Essential (primary) hypertension; I25.2 Old myocardial infarction; G47.30 Sleep apnea, unspecified; Z86.010 Personal history of colon polyps; E11.42 Type 2 diabetes mellitus with diabetic polyneuropathy; E66.9 Obesity, unspecified; Z95.1 Presence of aortocoronary bypass graft; Z98.49 Cataract extraction status, unspecified eye; Z98.890 Other specified postprocedural states; Z96.649 Presence of unspecified artificial hip joint; Z98.52 Vasectomy status
CPT/HCPCS: 36415; 80053; 85025; 86140; 87040 ×2; 93971 ×2; 96365; 96367; 99285; J2543; J3370; J7050 ×2; 71045; 71045-26; 76881-26-RT; 76881-RT; 80048; 80202; 82962; 85610; 94640; 97110-GP; 97116-GP; 97162-GP; 97530-GP; 97535-GP; 99222; 99231; 99232; 99238; 99284; A9270-GY; J1815; J1815-GY; J1940; J7030

== ENCOUNTER 2020-04-11 08:59 | Emergency (ER) | payer OTHER ==
--- NOTE | 2020-04-11 10:23 | EDM.PDOC ---
ED HPI GENERAL MEDICAL PROBLEM - General Chief Complaint: Cardiovascular Problem Stated Complaint: HIGH LABS- SENT FROM [place] Time Seen by Provider: 04/11/20 09:55 Source of Information: Reports: Patient, Family, Old Records, RN History Limitations: Reports: Other (incomplete records) - History of Present Illness INITIAL COMMENTS - FREE TEXT/NARRATIVE: 74 yo male [place] patient was told over the phone today based on some lab results from 2 d ago that he should go straight to the ER. Apparently, he had a BNP level that was substantially higher than his previous one. The provider he generally sees there is a PARLIAMENTARY COUNSEL. He states his breathing is more or less the same now as it has been for the past 4 mos. He admits that today he is noticeably more weak. There has not been a cough or fever. His legs are not more swollen than normal. He has no previous dx that he or his is aware of of cirrhosis or ascites. He did drink alcohol heavily for about 20 yrs from [age] yrs of age, but not any longer. His notes that his arms and legs keep getting skinnier, but his abdomen bigger. He had a ECHO this past Sept, but she does not know the details of what it showed. He didn't sleep well last night, but it was not due to SOB. He is more concerned with his sinuses today than his breathing. Fairly recent onset of nausea after he takes his pills, but no vomiting. says he has a CPAP machine and has been waking up at night confused, seems much more lucid during the day. Appetite is poor, not eating a lot at a time. Onset: Gradual Onset Date: 01/09/20 Duration: Getting Worse (progressing very slowly with regards to his SOB), Other (months) Location: Reports: Chest, Abdomen (getting larger) Quality: Reports: Other (no new pain) Severity: Mild (SOB severity) Improves with: Reports: Rest Worsens with: Reports: Movement Context: Reports: Other (See HPI) Associated Symptoms: Reports: Shortness of Breath (mainly with exertion). Denies: Chest Pain, Cough, Fever/Chills Treatments SERVICE CENTER MANAGER: Reports: Other (see below) (usual meds only) Generalized Pain Score (Numeric/FACES): 7 - Related Data Allergies Allergy/AdvReac Type Severity Reaction Status Date / Time morphine Allergy Other Verified 04/11/20 09:08 nylon AdvReac Itching Verified 04/11/20 09:08 Home Meds: Home Meds Apixaban [Eliquis] 5 mg PO BID 07/25/19 [History] Calcium Citrate/Vitamin D3 [Calcium Cit 315 mg-D3 250 Unit] 2 each PO DAILY 07/25/19 [History] Cetirizine [ZyrTEC] 10 mg PO DAILY 07/25/19 [History] Cholecalciferol (Vitamin D3) [Vitamin D3] 2,000 unit PO DAILY 07/25/19 [History] Gabapentin [Neurontin] 300 mg PO TID 07/25/19 [History] Insulin NPH/Insulin Reg,Human [Novolin 70-30] 5 units SQ ASDIRECTED PRN 07/25/19 [History] Latanoprost/Pf [Latanoprost 0.005% Eye Drop] 1 drop EYEBOTH DAILY 07/25/19 [History] Magnesium Oxide 420 mg PO BID 07/25/19 [History] Nitroglycerin 0.4 mg SL ASDIRECTED PRN 07/25/19 [History] Omeprazole 40 mg PO DAILY 07/25/19 [History] Triamcinolone Acetonide [Triamcinolone Acetonide 0.1% Crm] 1 applic TOP BID PRN 07/25/19 [History] atorvaSTATin [Lipitor] 40 mg PO DAILY 07/25/19 [History] metFORMIN HCl [Fortamet] 1,000 mg PO BID 07/25/19 [History] terbinafine HCL [Athlete's Foot] 1 applic TOP BID PRN 07/25/19 [History] Acetaminophen [Tylenol Arthritis] 650 mg PO TID 07/28/19 [History] Aspirin [Halfprin] 81 mg PO DAILY 07/28/19 [History] Fish Oil/[place]-3 Fatty Acids [Fish Oil 1,000 MG] 2 each PO DAILY 07/28/19 [History] Multivitamin [Multi-Day Vitamins] 1 each PO DAILY 07/28/19 [History] Vitamin E 400 unit PO DAILY 07/28/19 [History] Lactobacillus Rhamnosus GG [Culturelle] 1 cap PO BID #60 cap 03/24/20 [Rx] Furosemide [Lasix] 80 mg PO BID 04/11/20 [History] Losartan [Cozaar] 12.5 mg PO DAILY 04/11/20 [History] Metoprolol Succinate [Toprol XL] 12.5 mg PO DAILY 04/11/20 [History] Sulfamethoxazole/Trimethoprim [Bactrim Ds Tablet] 1 each PO BID 04/11/20 [History] Past Medical History HEENT History: Reports: Sinusitis Cardiovascular History: Reports: Afib, Heart Failure, High Cholesterol, Hypertension, [place] Respiratory History: Reports: Sleep Apnea Other Respiratory History: cpap Gastrointestinal History: Reports: Colon Polyp Genitourinary History: Reports: Prostate Disorder Neurological History: Reports: Neuropathy, Diabetic Psychiatric History: Reports: None Endocrine/Metabolic History: Reports: Diabetes, Type II, Obesity/BMI 30+ Hematologic History: Reports: Anticoagulation Therapy - Infectious Disease History Infectious Disease History: Reports: Mumps - Past Surgical History Head Surgeries/Procedures: Reports: None HEENT Surgical History: Reports: Cataract Surgery Cardiovascular Surgical History: Reports: Coronary Artery Bypass Respiratory Surgical History: Reports: None GI Surgical History: Reports: Colonoscopy, Hernia Repair/Other Male Surgical History: Reports: Vasectomy Endocrine Surgical History: Reports: None Neurological Surgical History: Reports: None Musculoskeletal Surgical History: Reports: Hip Replacement, Other (See Below) Other Musculoskeletal Surgeries/Procedures:: femur fracture bunionleft foot Social & Family History - Family History Family Medical History: No Pertinent Family History - Tobacco Use Tobacco Use Status *Q: Former Tobacco User Used Tobacco, but Quit: Yes Month/Year Tobacco Last Used: 1987 - Caffeine Use Caffeine Use: Reports: Soda - Recreational Drug Use Recreational Drug Use: No - Living Situation & Occupation Living situation: Reports: Occupation: Disabled (lives with one mile outside of [place], [place] ED ROS GENERAL - Review of Systems Review Of Systems: See Below Constitutional: Reports: Weakness (generalized) HEENT: Reports: Sinus Problem (sinus drainage. ). Denies: Nose Pain, Throat Pain, Throat Swelling Respiratory: Denies: Shortness of Breath, Wheezing, Pleuritic Chest Pain, Cough, Sputum, Hemoptysis Cardiovascular: Reports: Dyspnea on Exertion, Edema (in legs is not any worse than usual), Orthopnea (if he lays very flat, not new). Denies: Light headedness, Palpitations, Syncope GI/Abdominal: Reports: Decreased Appetite, Nausea. Denies: Abdominal Pain, Black Stool, Bloody Stool, Constipation, Diarrhea, Flatus, Hematemesis, Hematochezia, Melena, Vomiting : Reports: No Symptoms Musculoskeletal: Reports: No Symptoms Skin: Reports: Wound (small, chronic ulcers of ankle area. Not worse. ) Neurological: Reports: Confusion (at night when he awakens more often lately. ) ED EXAM, GENERAL - Physical Exam Exam: See Below Exam Limited By: No Limitations General Appearance: Alert, WD/WN, No Apparent Distress Eye Exam: Bilateral Eye: Normal Inspection Ears: Normal External Exam, Normal Canal, Normal TMs, Hearing Loss (mild) Ear Exam: Bilateral Ear: Auricle Normal, Canal Normal, TM normal Nose: Normal Inspection, No Blood Throat/Mouth: Normal Inspection, Normal Lips, Normal Oropharynx, Normal Voice, No Airway Compromise Head: Atraumatic, Normocephalic Neck: Normal Inspection Respiratory/Chest: No Respiratory Distress, Lungs Clear, Normal Breath Sounds, No Accessory Muscle Use Cardiovascular: Regular Rate, Rhythm, Extra Beats. No: No Edema GI/Abdominal: Normal Bowel Sounds, Soft, Non-Tender, Other (ascites present). No: No Distention, Tender Back Exam: Normal Inspection. No: CVA Tenderness (R), CVA Tenderness (L) Extremities: Normal Inspection, Normal Range of Motion, Non-Tender, No Pedal Edema, Pedal Edema (trace pitting edema to both LE's below the knees). No: Redness Neurological: Alert, Oriented, CN II-XII Intact, Normal Cognition, No Motor/Sensory Deficits Psychiatric: Normal Affect, Normal Mood Skin Exam: Warm, Dry, Intact, Normal Color, No Rash. No: Erythema Course - Vital Signs Last Recorded V/S: Last Vital Signs Temp 35.9 C L 04/11/20 09:12 Pulse 107 H 04/11/20 11:10 Resp 17 04/11/20 11:10 BP 133/68 04/11/20 11:10 Pulse Ox 97 04/11/20 10:08 - Orders/Labs/Meds Orders: Active Orders 24 hr Category Date Time Status TROPONIN I [CHEM] Stat Lab 04/11/20 12:00 Ordered Magnesium Sulfate/Water [Magnesium Sulfate in Water Med 04/11/20 11:02 Active Premix] 2 gm in 50 ml IV ONETIME Sodium Chloride 0.9% [Saline Flush] Med 04/11/20 11:02 Active 10 ml FLUSH ASDIRECTED PRN Saline Lock Insert [OM.PC] Routine Oth 04/11/20 11:02 Ordered Medication Orders Magnesium Sulfate (Magnesium Sulfate In Water Premix) 2 gm in 50 mls @ 25 mls/hr IV ONETIME ONE Stop: 04/11/20 13:01 Sodium Chloride (Saline Flush) 10 ml FLUSH ASDIRECTED PRN PRN Reason: Keep Vein Open Labs: Laboratory Tests 04/11/20 04/11/20 04/11/20 Range/Units 10:07 10:07 10:23 WBC 7.3 (4.5-11.0) K/uL RBC 4.55 (4.30-5.90) M/uL Hgb 10.7 L (12.0-15.0) g/dL Hct 35.0 L (40.0-54.0) % MCV 77 L (80-98) fL MCH 24 L (27-31) pg MCHC 31 L (32-36) % Plt Count 310 (150-400) K/uL Sodium 127 L (140-148) mmol/L Potassium 3.8 (3.6-5.2) mmol/L Chloride 91 L (100-108) mmol/L Carbon Dioxide 25 (21-32) mmol/L Anion Gap 14.8 H (5.0-14.0) mmol/L BUN 20 H D (7-18) mg/dL Creatinine 1.3 (0.8-1.3) mg/dL Est Cr Clr Drug Dosing 55.54 mL/min Estimated GFR (MDRD) 54 L (>60) Glucose 140 H (74-106) mg/dL Calcium 8.7 (8.5-10.1) mg/dL Magnesium (1.8-2.4) mg/dL Ammonia (11-32) mmol/L Troponin I 0.023 (0.000-0.056) ng/mL C-Reactive Protein 0.34 H (0.0-0.3) mg/dL NT-Pro-B Natriuret Pep 06338 H (5-125) pg/mL 04/11/20 04/11/20 Range/Units 10:26 10:46 WBC (4.5-11.0) K/uL RBC (4.30-5.90) M/uL Hgb (12.0-15.0) g/dL Hct (40.0-54.0) % MCV (80-98) fL MCH (27-31) pg MCHC (32-36) % Plt Count (150-400) K/uL Sodium (140-148) mmol/L Potassium (3.6-5.2) mmol/L Chloride (100-108) mmol/L Carbon Dioxide (21-32) mmol/L Anion Gap (5.0-14.0) mmol/L BUN (7-18) mg/dL Creatinine (0.8-1.3) mg/dL Est Cr Clr Drug Dosing mL/min Estimated GFR (MDRD) (>60) Glucose (74-106) mg/dL Calcium (8.5-10.1) mg/dL Magnesium 1.4 L (1.8-2.4) mg/dL Ammonia 15 (11-32) mmol/L Troponin I (0.000-0.056) ng/mL C-Reactive Protein (0.0-0.3) mg/dL NT-Pro-B Natriuret Pep (5-125) pg/mL Meds: Medications Generic Name Dose Route Start Last Admin Trade Name Freq PRN Reason Stop Dose Admin Magnesium Sulfate 2 gm in 50 mls @ 25 mls/hr 04/11/20 11:02 Magnesium Sulfate In Water Premix IV 04/11/20 13:01 ONETIME ONE Sodium Chloride 10 ml 04/11/20 11:02 Saline Flush FLUSH ASDIRECTED PRN Keep Vein Open Discontinued Medications Generic Name Dose Route Start Last Admin Trade Name Freq PRN Reason Stop Dose Admin Spironolactone 25 mg 04/11/20 11:08 Aldactone PO 04/11/20 11:09 ONETIME ONE Departure - Departure Time of Disposition: 12:34 Disposition: Home, Self-Care 01 Condition: Poor Clinical Impression: Mild dehydration, Hypomagnesemia, Elevated brain natriuretic peptide (BNP) level, Hyponatremia Referrals: Aleida Mark PARLIAMENTARY COUNSEL [Primary Care Provider] - Forms: ED Department Discharge Additional Instructions: ED HPI GENERAL MEDICAL PROBLEM - General Chief Complaint: Cardiovascular Problem Stated Complaint: HIGH LABS- SENT FROM [place] Time Seen by Provider: 04/11/20 09:55 Source of Information: Reports: Patient, Family, Old Records, RN History Limitations: Reports: Other (incomplete records) - History of Present Illness INITIAL COMMENTS - FREE TEXT/NARRATIVE: 74 [place] patient was told over the phone today based on some lab results from 2 d ago that he should go straight to the ER. Apparently, he had a BNP level that was substantially higher than his previous one. The provider he generally sees there is a PARLIAMENTARY COUNSEL. He states his breathing is more or less the same now as it has been for the past 4 mos. He admits that today he is noticeably more weak. There has not been a cough or fever. His legs are not more swollen than normal. He has no previous dx that he or his is aware of of cirrhosis or ascites. He did drink alcohol heavily for about 20 yrs from [age] yrs of age, but not any longer. His notes that his arms and legs keep getting skinnier, but his abdomen bigger. He had a ECHO this past Jan, but she does not know the details of what it showed. He didn't sleep well last night, but it was not due to SOB. He is more concerned with his sinuses today than his breathing. Fairly recent onset of nausea after he takes his pills, but no vomiting. says he has a CPAP machine and has been waking up at night confused, seems much more lucid during the day. Appetite is poor, not eating a lot at a time. Onset: Gradual Onset Date: 01/09/20 Duration: Getting Worse (progressing very slowly with regards to his SOB), Other (months) Location: Reports: Chest, Abdomen (getting larger) Quality: Reports: Other (no new pain) Severity: Mild (SOB severity) Improves with: Reports: Rest Worsens with: Reports: Movement Context: Reports: Other (See HPI) Associated Symptoms: Reports: Shortness of Breath (mainly with exertion). Denies: Chest Pain, Cough, Fever/Chills Treatments SERVICE CENTER MANAGER: Reports: Other (see below) (usual meds only) Generalized Pain Score (Numeric/FACES): 7 - Related Data Allergies Allergy/AdvReac Type Severity Reaction Status Date / Time morphine Allergy Other Verified 04/11/20 09:08 nylon AdvReac Itching Verified 04/11/20 09:08 Home Meds: Home Meds Apixaban [Eliquis] 5 mg PO BID 07/25/19 [History] Calcium Citrate/Vitamin D3 [Calcium Cit 315 mg-D3 250 Unit] 2 each PO DAILY 07/25/19 [History] Cetirizine [ZyrTEC] 10 mg PO DAILY 07/25/19 [History] Cholecalciferol (Vitamin D3) [Vitamin D3] 2,000 unit PO DAILY 07/25/19 [History] Gabapentin [Neurontin] 300 mg PO TID 07/25/19 [History] Insulin NPH/Insulin Reg,Human [Novolin 70-30] 5 units SQ ASDIRECTED PRN 07/25/19 [History] Latanoprost/Pf [Latanoprost 0.005% Eye Drop] 1 drop EYEBOTH DAILY 07/25/19 [History] Magnesium Oxide 420 mg PO BID 07/25/19 [History] Nitroglycerin 0.4 mg SL ASDIRECTED PRN 07/25/19 [History] Omeprazole 40 mg PO DAILY 07/25/19 [History] Triamcinolone Acetonide [Triamcinolone Acetonide 0.1% Crm] 1 applic TOP BID PRN 07/25/19 [History] atorvaSTATin [Lipitor] 40 mg PO DAILY 07/25/19 [History] metFORMIN HCl [Fortamet] 1,000 mg PO BID 07/25/19 [History] terbinafine HCL [Athlete's Foot] 1 applic TOP BID PRN 07/25/19 [History] Acetaminophen [Tylenol Arthritis] 650 mg PO TID 07/28/19 [History] Aspirin [Halfprin] 81 mg PO DAILY 07/28/19 [History] Fish Oil/[place]-3 Fatty Acids [Fish Oil 1,000 MG] 2 each PO DAILY 07/28/19 [History] Multivitamin [Multi-Day Vitamins] 1 each PO DAILY 07/28/19 [History] Vitamin E 400 unit PO DAILY 07/28/19 [History] Lactobacillus Rhamnosus GG [Culturelle] 1 cap PO BID #60 cap 03/24/20 [Rx] Furosemide [Lasix] 80 mg PO BID 04/11/20 [History] Losartan [Cozaar] 12.5 mg PO DAILY 04/11/20 [History] Metoprolol Succinate [Toprol XL] 12.5 mg PO DAILY 04/11/20 [History] Sulfamethoxazole/Trimethoprim [Bactrim Ds Tablet] 1 each PO BID 04/11/20 [History] Past Medical History HEENT History: Reports: Sinusitis Cardiovascular History: Reports: Afib, Heart Failure, High Cholesterol, Hypertension, [place] Respiratory History: Reports: Sleep Apnea Other Respiratory History: cpap Gastrointestinal History: Reports: Colon Polyp Genitourinary History: Reports: Prostate Disorder Neurological History: Reports: Neuropathy, Diabetic Psychiatric History: Reports: None Endocrine/Metabolic History: Reports: Diabetes, Type II, Obesity/BMI 30+ Hematologic History: Reports: Anticoagulation Therapy - Infectious Disease History Infectious Disease History: Reports: Mumps - Past Surgical History Head Surgeries/Procedures: Reports: None HEENT Surgical History: Reports: Cataract Surgery Cardiovascular Surgical History: Reports: Coronary Artery Bypass Respiratory Surgical History: Reports: None GI Surgical History: Reports: Colonoscopy, Hernia Repair/Other Male Surgical History: Reports: Vasectomy Endocrine Surgical History: Reports: None Neurological Surgical History: Reports: None Musculoskeletal Surgical History: Reports: Hip Replacement, Other (See Below) Other Musculoskeletal Surgeries/Procedures:: femur fracture bunionleft foot Social & Family History - Family History Family Medical History: No Pertinent Family History - Tobacco Use Tobacco Use Status *Q: Former Tobacco User Used Tobacco, but Quit: Yes Month/Year Tobacco Last Used: 1987 - Caffeine Use Caffeine Use: Reports: Soda - Recreational Drug Use Recreational Drug Use: No - Living Situation & Occupation Living situation: Reports: Occupation: Disabled (lives with one mile outside of [place], [place].) ED ROS GENERAL - Review of Systems Review Of Systems: See Below Constitutional: Reports: Weakness (generalized) HEENT: Reports: Sinus Problem (sinus drainage. ). Denies: Nose Pain, Throat Pain, Throat Swelling Respiratory: Denies: Shortness of Breath, Wheezing, Pleuritic Chest Pain, Cough, Sputum, Hemoptysis Cardiovascular: Reports: Dyspnea on Exertion, Edema (in legs is not any worse than usual), Orthopnea (if he lays very flat, not new). Denies: Lightheadedness, Palpitations, Syncope GI/Abdominal: Reports: Decreased Appetite, Nausea. Denies: Abdominal Pain, Black Stool, Bloody Stool, Constipation, Diarrhea, Flatus, Hematemesis, Hematochezia, Melena, Vomiting : Reports: No Symptoms Musculoskeletal: Reports: No Symptoms Skin: Reports: Wound (small, chronic ulcers of ankle area. Not worse. ) Neurological: Reports: Confusion (at night when he awakens more often lately. ) ED EXAM, GENERAL - Physical Exam Exam: See Below Exam Limited By: No Limitations General Appearance: Alert, WD/WN, No Apparent Distress Eye Exam: Bilateral Eye: Normal Inspection Ears: Normal External Exam, Normal Canal, Normal TMs, Hearing Loss (mild) Ear Exam: Bilateral Ear: Auricle Normal, Canal Normal, TM normal Nose: Normal Inspection, No Blood Throat/Mouth: Normal Inspection, Normal Lips, Normal Oropharynx, Normal Voice, No Airway Compromise Head: Atraumatic, Normocephalic Neck: Normal Inspection Respiratory/Chest: No Respiratory Distress, Lungs Clear, Normal Breath Sounds, No Accessory Muscle Use Cardiovascular: Regular Rate, Rhythm, Extra Beats. No: No Edema GI/Abdominal: Normal Bowel Sounds, Soft, Non-Tender, Other (ascites present). No: No Distention, Tender Back Exam: Normal Inspection. No: CVA Tenderness (R), CVA Tenderness (L) Extremities: Normal Inspection, Normal Range of Motion, Non-Tender, No Pedal Edema, Pedal Edema (trace pitting edema to both LE's below the knees). No: Redness Neurological: Alert, Oriented, CN II-XII Intact, Normal Cognition, No Motor/Sensory Deficits Psychiatric: Normal Affect, Normal Mood Skin Exam: Warm, Dry, Intact, Normal Color, No Rash. No: Erythema Course - Vital Signs Last Recorded V/S: Last Vital Signs Temp 35.9 C L 04/11/20 09:12 Pulse 107 H 04/11/20 11:10 Resp 17 04/11/20 11:10 BP 133/68 04/11/20 11:10 Pulse Ox 97 04/11/20 10:08 - Orders/Labs/Meds Orders: Active Orders 24 hr Category Date Time Status TROPONIN I [CHEM] Stat Lab 04/11/20 12:00 Ordered Magnesium Sulfate/Water [Magnesium Sulfate in Water Med 04/11/20 11:02 Active Premix] 2 gm in 50 ml IV ONETIME Sodium Chloride 0.9% [Saline Flush] Med 04/11/20 11:02 Active 10 ml FLUSH ASDIRECTED PRN Saline Lock Insert [OM.PC] Routine Oth 04/11/20 11:02 Ordered Medication Orders Magnesium Sulfate (Magnesium Sulfate In Water Premix) 2 gm in 50 mls @ 25 mls/hr IV ONETIME ONE Stop: 04/11/20 13:01 Sodium Chloride (Saline Flush) 10 ml FLUSH ASDIRECTED PRN PRN Reason: Keep Vein Open Labs: Laboratory Tests 04/11/20 04/11/20 04/11/20 Range/Units 10:07 10:07 10:23 WBC 7.3 (4.5-11.0) K/uL RBC 4.55 (4.30-5.90) M/uL Hgb 10.7 L (12.0-15.0) g/dL Hct 35.0 L (40.0-54.0) % MCV 77 L (80-98) fL MCH 24 L (27-31) pg MCHC 31 L (32-36) % Plt Count 310 (150-400) K/uL Sodium 127 L (140-148) mmol/L Potassium 3.8 (3.6-5.2) mmol/L Chloride 91 L (100-108) mmol/L Carbon Dioxide 25 (21-32) mmol/L Anion Gap 14.8 H (5.0-14.0) mmol/L BUN 20 H D (7-18) mg/dL Creatinine 1.3 (0.8-1.3) mg/dL Est Cr Clr Drug Dosing 55.54 mL/min Estimated GFR (MDRD) 54 L (>60) Glucose 140 H (74-106) mg/dL Calcium 8.7 (8.5-10.1) mg/dL Magnesium (1.8-2.4) mg/dL Ammonia (11-32) mmol/L Troponin I 0.023 (0.000-0.056) ng/mL C-Reactive Protein 0.34 H (0.0-0.3) mg/dL NT-Pro-B Natriuret Pep 41345 H (5-125) pg/mL 04/11/20 04/11/20 Range/Units 10:26 10:46 WBC (4.5-11.0) K/uL RBC (4.30-5.90) M/uL Hgb (12.0-15.0) g/dL Hct (40.0-54.0) % MCV (80-98) fL MCH (27-31) pg MCHC (32-36) % Plt Count (150-400) K/uL Sodium (140-148) mmol/L Potassium (3.6-5.2) mmol/L Chloride (100-108) mmol/L Carbon Dioxide (21-32) mmol/L Anion Gap (5.0-14.0) mmol/L BUN (7-18) mg/dL Creatinine (0.8-1.3) mg/dL Est Cr Clr Drug Dosing mL/min Estimated GFR (MDRD) (>60) Glucose (74-106) mg/dL Calcium (8.5-10.1) mg/dL Magnesium 1.4 L (1.8-2.4) mg/dL Ammonia 15 (11-32) mmol/L Troponin I (0.000-0.056) ng/mL C-Reactive Protein (0.0-0.3) mg/dL NT-Pro-B Natriuret Pep (5-125) pg/mL Meds: Medications Generic Name Dose Route Start Last Admin Trade Name Freq PRN Reason Stop Dose Admin Magnesium Sulfate 2 gm in 50 mls @ 25 mls/hr 04/11/20 11:02 Magnesium Sulfate In Water Premix IV 04/11/20 13:01 ONETIME ONE Sodium Chloride 10 ml 04/11/20 11:02 Saline Flush FLUSH ASDIRECTED PRN Keep Vein Open Discontinued Medications Generic Name Dose Route Start Last Admin Trade Name Freq PRN Reason Stop Dose Admin Spironolactone 25 mg 04/11/20 11:08 Aldactone PO 04/11/20 11:09 ONETIME ONE Departure - Departure Condition: Poor Clinical Impression: Mild dehydration, Hypomagnesemia, Elevated brain natriuretic peptide (BNP) level, Hyponatremia Referrals: Aleida Mark PARLIAMENTARY COUNSEL [Primary Care Provider] - Forms: ED Department Discharge Additional Instructions: Don't take the TMP/SMZ antibiotic while you are on the spironolactone, discuss this issue with your provider. Reduce the furosemide to 40 mg twice daily. Start the spironolactone 25 mg daily in the morning starting tomorrow. This spironolactone dose may need to be increased, but your provider should do so slowly with monitoring of your potassium level and weight. We also discussed dust mite covers for your pillow and mattress. Use of a humidifier in the winter with Vaseline in your nostrils to reduce nose bleeds. Use of Afrin nasal spray(available as generic for less $$) for no more than 3 days at a time for severe nasal congestion. Recheck soon at the [place] to follow up on how the medicine changes we made today effect Arsen. Take copies of your blood work from today's visit to that appt. I suspect your abdominal size is due to ascites from cirrhosis of the liver. You do not have any sign of hepatitis which is inflammation of the liver, but your low albumin and total protein levels are supportive of the presence of cirrhosis because the liver makes proteins which play a role in keeping fluid in your blood vessels. Low levels of albumin and T. protein contribute to edema in your legs and abdomen from leakage of fluids from your blood vessels. The spironolactone we started benefits both your ascites from your cirrhosis and your congestive heart failure. I made the changes in your furosemide dosing due to increases in your BUN and Creatinine levels today along with clear lungs suggesting you are getting too much of the lasix that has lead to some dehydration. The low sodium level today is likely also due to the furosemide dose being too big. Arsen may benefit from a slightly larger dose of his losartan, but I don't think we should change too many things at one time. I will leave this up to your normal provider. Sepsis Event Note (ED) - Evaluation Sepsis Screening Result: No Definite Risk - Focused Exam Vital Signs: Vital Signs Temp Pulse Resp BP Pulse Ox 04/11/20 11:10 107 H 17 133/68 04/11/20 10:53 82 24 H 124/91 H 04/11/20 10:08 15 133/69 97 04/11/20 09:12 35.9 C L 53 L 18 136/59 L 98 - My Orders Last 24 Hours: My Active Orders 04/11/20 11:02 Magnesium Sulfate/Water [Magnesium Sulfate in Water Premix] 2 gm in 50 ml IV ONETIME Sodium Chloride 0.9% [Saline Flush] 10 ml FLUSH ASDIRECTED PRN Saline Lock Insert [OM.PC] Routine 04/11/20 12:00 TROPONIN I [CHEM] Stat - Assessment/Plan Last 24 Hours: My Active Orders 04/11/20 11:02 Magnesium Sulfate/Water [Magnesium Sulfate in Water Premix] 2 gm in 50 ml IV ONETIME Sodium Chloride 0.9% [Saline Flush] 10 ml FLUSH ASDIRECTED PRN Saline Lock Insert [OM.PC] Routine 04/11/20 12:00 TROPONIN I [CHEM] Stat ED HPI GENERAL MEDICAL PROBLEM - General Chief Complaint: Cardiovascular Problem Stated Complaint: HIGH LABS- SENT FROM [place] Time Seen by Provider: 04/11/20 09:55 Source of Information: Reports: Patient, Family, Old Records, RN History Limitations: Reports: Other (incomplete records) - History of Present Illness INITIAL COMMENTS - FREE TEXT/NARRATIVE: 74 yo male [place] patient was told over the phone today based on some lab results from 2 d ago that he should go straight to the ER. Apparently, he had a BNP level that was substantially higher than his previous one. The provider he generally sees there is a PARLIAMENTARY COUNSEL. He states his breathing is more or less the same now as it has been for the past 4 mos. He admits that today he is noticeably more weak. There has not been a cough or fever. His legs are not more swollen than normal. He has no previous dx that he or his is aware of of cirrhosis or ascites. He did drink alcohol heavily for about 20 yrs from [age] yrs of age, but not any longer. His notes that his arms and legs keep getting skinnier, but his abdomen bigger. He had a ECHO this past Sept, but she does not know the details of what it showed. He didn't sleep well last night, but it was not due to SOB. He is more concerned with his sinuses today than his breathing. Fairly recent onset of nausea after he takes his pills, but no vomiting. says he has a CPAP machine and has been waking up at night confused, seems much more lucid during the day. Appetite is poor, not eating a lot at a time. Onset: Gradual Onset Date: 01/09/20 Duration: Getting Worse (progressing very slowly with regards to his SOB), Other (months) Location: Reports: Chest, Abdomen (getting larger) Quality: Reports: Other (no new pain) Severity: Mild (SOB severity) Improves with: Reports: Rest Worsens with: Reports: Movement Context: Reports: Other (See HPI) Associated Symptoms: Reports: Shortness of Breath (mainly with exertion). Denies: Chest Pain, Cough, Fever/Chills Treatments SERVICE CENTER MANAGER: Reports: Other (see below) (usual meds only) Generalized Pain Score (Numeric/FACES): 7 - Related Data Allergies Allergy/AdvReac Type Severity Reaction Status Date / Time morphine Allergy Other Verified 04/11/20 09:08 nylon AdvReac Itching Verified 04/11/20 09:08 Home Meds: Home Meds Apixaban [Eliquis] 5 mg PO BID 07/25/19 [History] Calcium Citrate/Vitamin D3 [Calcium Cit 315 mg-D3 250 Unit] 2 each PO DAILY 07/25/19 [History] Cetirizine [ZyrTEC] 10 mg PO DAILY 07/25/19 [History] Cholecalciferol (Vitamin D3) [Vitamin D3] 2,000 unit PO DAILY 07/25/19 [History] Gabapentin [Neurontin] 300 mg PO TID 07/25/19 [History] Insulin NPH/Insulin Reg,Human [Novolin 70-30] 5 units SQ ASDIRECTED PRN 07/25/19 [History] Latanoprost/Pf [Latanoprost 0.005% Eye Drop] 1 drop EYEBOTH DAILY 07/25/19 [History] Magnesium Oxide 420 mg PO BID 07/25/19 [History] Nitroglycerin 0.4 mg SL ASDIRECTED PRN 07/25/19 [History] Omeprazole 40 mg PO DAILY 07/25/19 [History] Triamcinolone Acetonide [Triamcinolone Acetonide 0.1% Crm] 1 applic TOP BID PRN 07/25/19 [History] atorvaSTATin [Lipitor] 40 mg PO DAILY 07/25/19 [History] metFORMIN HCl [Fortamet] 1,000 mg PO BID 07/25/19 [History] terbinafine HCL [Athlete's Foot] 1 applic TOP BID PRN 07/25/19 [History] Acetaminophen [Tylenol Arthritis] 650 mg PO TID 07/28/19 [History] Aspirin [Halfprin] 81 mg PO DAILY 07/28/19 [History] Fish Oil/[place]-3 Fatty Acids [Fish Oil 1,000 MG] 2 each PO DAILY 07/28/19 [History] Multivitamin [Multi-Day Vitamins] 1 each PO DAILY 07/28/19 [History] Vitamin E 400 unit PO DAILY 07/28/19 [History] Lactobacillus Rhamnosus GG [Culturelle] 1 cap PO BID #60 cap 03/24/20 [Rx] Furosemide [Lasix] 80 mg PO BID 04/11/20 [History] Losartan [Cozaar] 12.5 mg PO DAILY 04/11/20 [History] Metoprolol Succinate [Toprol XL] 12.5 mg PO DAILY 04/11/20 [History] Sulfamethoxazole/Trimethoprim [Bactrim Ds Tablet] 1 each PO BID 04/11/20 [History] Past Medical History HEENT History: Reports: Sinusitis Cardiovascular History: Reports: Afib, Heart Failure, High Cholesterol, Hypertension, [place] Respiratory History: Reports: Sleep Apnea Other Respiratory History: cpap Gastrointestinal History: Reports: Colon Polyp Genitourinary History: Reports: Prostate Disorder Neurological History: Reports: Neuropathy, Diabetic Psychiatric History: Reports: None Endocrine/Metabolic History: Reports: Diabetes, Type II, Obesity/BMI 30+ Hematologic History: Reports: Anticoagulation Therapy - Infectious Disease History Infectious Disease History: Reports: Mumps - Past Surgical History Head Surgeries/Procedures: Reports: None HEENT Surgical History: Reports: Cataract Surgery Cardiovascular Surgical History: Reports: Coronary Artery Bypass Respiratory Surgical History: Reports: None GI Surgical History: Reports: Colonoscopy, Hernia Repair/Other Male Surgical History: Reports: Vasectomy Endocrine Surgical History: Reports: None Neurological Surgical History: Reports: None Musculoskeletal Surgical History: Reports: Hip Replacement, Other (See Below) Other Musculoskeletal Surgeries/Procedures:: femur fracture bunionleft foot Social & Family History - Family History Family Medical History: No Pertinent Family History - Tobacco Use Tobacco Use Status *Q: Former Tobacco User Used Tobacco, but Quit: Yes Month/Year Tobacco Last Used: 1987 - Caffeine Use Caffeine Use: Reports: Soda - Recreational Drug Use Recreational Drug Use: No - Living Situation & Occupation Living situation: Reports: Occupation: Disabled (lives with [place] outside of [place], [place] ED [facility] - Review of Systems Review Of Systems: See Below Constitutional: Reports: Weakness (generalized) HEENT: Reports: Sinus Problem (sinus drainage. ). Denies: Nose Pain, Throat Pain, Throat Swelling Respiratory: Denies: Shortness of Breath, Wheezing, Pleuritic Chest Pain, Cough, Sputum, Hemoptysis Cardiovascular: Reports: Dyspnea on Exertion, Edema (in legs is not any worse than usual), Orthopnea (if he lays very flat, not new). Denies: Lightheadedness, Palpitations, Syncope GI/Abdominal: Reports: Decreased Appetite, Nausea. Denies: Abdominal Pain, Black Stool, Bloody Stool, Constipation, Diarrhea, Flatus, Hematemesis, Hematochezia, Melena, Vomiting : Reports: No Symptoms Musculoskeletal: Reports: No Symptoms Skin: Reports: Wound (small, chronic ulcers of ankle area. Not worse. ) Neurological: Reports: Confusion (at night when he awakens more often lately. ) ED EXAM, GENERAL - Physical Exam Exam: See Below Exam Limited By: No Limitations General Appearance: Alert, WD/WN, No Apparent Distress Eye Exam: Bilateral Eye: Normal Inspection Ears: Normal External Exam, Normal Canal, Normal TMs, Hearing Loss (mild) Ear Exam: Bilateral Ear: Auricle Normal, Canal Normal, TM normal Nose: Normal Inspection, No Blood Throat/Mouth: Normal Inspection, Normal Lips, Normal Oropharynx, Normal Voice, No Airway Compromise Head: Atraumatic, Normocephalic Neck: Normal Inspection Respiratory/Chest: No Respiratory Distress, Lungs Clear, Normal Breath Sounds, No Accessory Muscle Use Cardiovascular: Regular Rate, Rhythm, Extra Beats. No: No Edema GI/Abdominal: Normal Bowel Sounds, Soft, Non-Tender, Other (ascites present). No: No Distention, Tender Back Exam: Normal Inspection. No: CVA Tenderness (R), CVA Tenderness (L) Extremities: Normal Inspection, Normal Range of Motion, Non-Tender, No Pedal Edema, Pedal Edema (trace pitting edema to both LE's below the knees). No: Redness Neurological: Alert, Oriented, CN II-XII Intact, Normal Cognition, No Motor/Sensory Deficits Psychiatric: Normal Affect, Normal Mood Skin Exam: Warm, Dry, Intact, Normal Color, No Rash. No: Erythema Course - Vital Signs Last Recorded V/S: Last Vital Signs Temp 35.9 C L 04/11/20 09:12 Pulse 107 H 04/11/20 11:10 Resp 17 04/11/20 11:10 BP 133/68 04/11/20 11:10 Pulse Ox 97 04/11/20 10:08 - Orders/Labs/Meds Orders: Active Orders 24 hr Category Date Time Status TROPONIN I [CHEM] Stat Lab 04/11/20 12:00 Ordered Magnesium Sulfate/Water [Magnesium Sulfate in Water Med 04/11/20 11:02 Active Premix] 2 gm in 50 ml IV ONETIME Sodium Chloride 0.9% [Saline Flush] Med 04/11/20 11:02 Active 10 ml FLUSH ASDIRECTED PRN Saline Lock Insert [OM.PC] Routine Oth 04/11/20 11:02 Ordered Medication Orders Magnesium Sulfate (Magnesium Sulfate In Water Premix) 2 gm in 50 mls @ 25 mls/hr IV ONETIME ONE Stop: 04/11/20 13:01 Sodium Chloride (Saline Flush) 10 ml FLUSH ASDIRECTED PRN PRN Reason: Keep Vein Open Labs: Laboratory Tests 04/11/20 04/11/20 04/11/20 Range/Units 10:07 10:07 10:23 WBC 7.3 (4.5-11.0) K/uL RBC 4.55 (4.30-5.90) M/uL Hgb 10.7 L (12.0-15.0) g/dL Hct 35.0 L (40.0-54.0) % MCV 77 L (80-98) fL MCH 24 L (27-31) pg MCHC 31 L (32-36) % Plt Count 310 (150-400) K/uL Sodium 127 L (140-148) mmol/L Potassium 3.8 (3.6-5.2) mmol/L Chloride 91 L (100-108) mmol/L Carbon Dioxide 25 (21-32) mmol/L Anion Gap 14.8 H (5.0-14.0) mmol/L BUN 20 H D (7-18) mg/dL Creatinine 1.3 (0.8-1.3) mg/dL Est Cr Clr Drug Dosing 55.54 mL/min Estimated GFR (MDRD) 54 L (>60) Glucose 140 H (74-106) mg/dL Calcium 8.7 (8.5-10.1) mg/dL Magnesium (1.8-2.4) mg/dL Ammonia (11-32) mmol/L Troponin I 0.023 (0.000-0.056) ng/mL C-Reactive Protein 0.34 H (0.0-0.3) mg/dL NT-Pro-B Natriuret Pep 06382 H (5-125) pg/mL 04/11/20 04/11/20 Range/Units 10:26 10:46 WBC (4.5-11.0) K/uL RBC (4.30-5.90) M/uL Hgb (12.0-15.0) g/dL Hct (40.0-54.0) % MCV (80-98) fL MCH (27-31) pg MCHC (32-36) % Plt Count (150-400) K/uL Sodium (140-148) mmol/L Potassium (3.6-5.2) mmol/L Chloride (100-108) mmol/L Carbon Dioxide (21-32) mmol/L Anion Gap (5.0-14.0) mmol/L BUN (7-18) mg/dL Creatinine (0.8-1.3) mg/dL Est Cr Clr Drug Dosing mL/min Estimated GFR (MDRD) (>60) Glucose (74-106) mg/dL Calcium (8.5-10.1) mg/dL Magnesium 1.4 L (1.8-2.4) mg/dL Ammonia 15 (11-32) mmol/L Troponin I (0.000-0.056) ng/mL C-Reactive Protein (0.0-0.3) mg/dL NT-Pro-B Natriuret Pep (5-125) pg/mL Meds: Medications Generic Name Dose Route Start Last Admin Trade Name Freq PRN Reason Stop Dose Admin Magnesium Sulfate 2 gm in 50 mls @ 25 mls/hr 04/11/20 11:02 Magnesium Sulfate In Water Premix IV 04/11/20 13:01 ONETIME ONE Sodium Chloride 10 ml 04/11/20 11:02 Saline Flush FLUSH ASDIRECTED PRN Keep Vein Open Discontinued Medications Generic Name Dose Route Start Last Admin Trade Name Freq PRN Reason Stop Dose Admin Spironolactone 25 mg 04/11/20 11:08 Aldactone PO 04/11/20 11:09 ONETIME ONE Departure - Departure Condition: Poor Clinical Impression: Mild dehydration, Hypomagnesemia, Elevated brain natriuretic peptide (BNP) level, Hyponatremia Referrals: Aleida Mark PARLIAMENTARY COUNSEL [Primary Care Provider] - Forms: ED Department Discharge Additional Instructions: Don't take the TMP/SMZ antibiotic while you are on the spironolactone, discuss this issue with your provider. Reduce the furosemide to 40 mg twice daily. Start the spironolactone 25 mg daily in the morning starting tomorrow. This spironolactone dose may need to be increased, but your provider should do so slowly with monitoring of your potassium level and weight. We also discussed dust mite covers for your pillow and mattress. Use of a humidifier in the winter with Vaseline in your nostrils to reduce nose bleeds. Use of Afrin nasal spray(available as generic for less $$) for no more than 3 days at a time for severe nasal congestion. Recheck soon at the [place] to follow up on how the medicine changes we made today effect Arsen. Take copies of your blood work from today's visit to that appt. I suspect your abdominal size is due to ascites from cirrhosis of the liver. You do not have any sign of hepatitis which is inflammation of the liver, but your low albumin and total protein levels are supportive of the presence of cirrhosis because the liver makes proteins which play a role in keeping fluid in your blood vessels. Low levels of albumin and T. protein contribute to edema in your legs and abdomen from leakage of fluids from your blood vessels. The spironolactone we started benefits both your ascites from your cirrhosis and your congestive heart failure. I made the changes in your furosemide dosing due to increases in your BUN and Creatinine levels today along with clear lungs suggesting you are getting too much of the lasix that has lead to some dehydration. The low sodium level today is likely also due to the furosemide dose being too big. Arsen may benefit from a slightly larger dose of his losartan, but I don't think we should change too many things at one time. I will leave this up to your normal provider. Sepsis Event Note (ED) - Evaluation Sepsis Screening Result: No Definite Risk - Focused Exam Vital Signs: Vital Signs Temp Pulse Resp BP Pulse Ox 04/11/20 11:10 107 H 17 133/68 04/11/20 10:53 82 24 H 124/91 H 04/11/20 10:08 15 133/69 97 04/11/20 09:12 35.9 C L 53 L 18 136/59 L 98 - My Orders Last 24 Hours: My Active Orders 04/11/20 11:02 Magnesium Sulfate/Water [Magnesium Sulfate in Water Premix] 2 gm in 50 ml IV ONETIME Sodium Chloride 0.9% [Saline Flush] 10 ml FLUSH ASDIRECTED PRN Saline Lock Insert [OM.PC] Routine 04/11/20 12:00 TROPONIN I [CHEM] Stat - Assessment/Plan Last 24 Hours: My Active Orders 04/11/20 11:02 Magnesium Sulfate/Water [Magnesium Sulfate in Water Premix] 2 gm in 50 ml IV ONETIME Sodium Chloride 0.9% [Saline Flush] 10 ml FLUSH ASDIRECTED PRN Saline Lock Insert [OM.PC] Routine 04/11/20 12:00 TROPONIN I [CHEM] Stat Don't take the TMP/SMZ antibiotic while you are on the spironolactone, discuss this issue with your provider. Reduce the furosemide to 40 mg twice daily. Start the spironolactone 25 mg daily in the morning starting tomorrow. This lisbet nolactone dose may need to be increased, but your provider should do so slowly with monitoring of your potassium level and weight. We also discussed dust mite covers for your pillow and mattress. Use of a humidifier in the winter with Vaseline in your nostrils to reduce nose bleeds. Use of Afrin nasal spray(available as generic for less $$) for no more than 3 days at a time for severe nasal congestion. Recheck soon at the [place] to follow up on how the medicine changes we made today effect Arsen. Take copies of your blood work from today's visit to that appt. I suspect your abdominal size is due to ascites from cirrhosis of the liver. You do not have any sign of hepatitis which is inflammation of the liver, but your low albumin and total protein levels are supportive of the presence of cirrhosis because the liver makes proteins which play a role in keeping fluid in your blood vessels. Low levels of albumin and T. protein contribute to edema in your legs and abdomen from leakage of fluids from your blood vessels. The spironolactone we started benefits both your ascites from your cirrhosis and your congestive heart failure. I made the changes in your furosemide dosing due to increases in your BUN and Creatinine levels today along with clear lungs suggesting you are getting too much of the lasix that has lead to some dehydration. The low sodium level today is likely also due to the furosemide dose being too big. Arsen may benefit from a slightly larger dose of his losartan, but I don't think we should change too many things at one time. I will leave this up to your [facility]. We gave you 2 gms of IV magnesium today for your low magnesium level. Sepsis Event Note (ED) - Evaluation Sepsis Screening Result: No Definite Risk - Focused Exam Vital Signs: Vital Signs Temp Pulse Resp BP Pulse Ox 04/11/20 11:10 107 H 17 133/68 04/11/20 10:53 82 24 H 124/91 H 04/11/20 10:08 15 133/69 97 04/11/20 09:12 35.9 C L 53 L 18 136/59 L 98 - My Orders Last 24 Hours: My Active Orders 04/11/20 11:02 Magnesium Sulfate/Water [Magnesium Sulfate in Water Premix] 2 gm in 50 ml IV ONETIME Sodium Chloride 0.9% [Saline Flush] 10 ml FLUSH ASDIRECTED PRN Saline Lock Insert [OM.PC] Routine 04/11/20 12:00 TROPONIN I [CHEM] Stat - Assessment/Plan Last 24 Hours: My Active Orders 04/11/20 11:02 Magnesium Sulfate/Water [Magnesium Sulfate in Water Premix] 2 gm in 50 ml IV ONETIME Sodium Chloride 0.9% [Saline Flush] 10 ml FLUSH ASDIRECTED PRN Saline Lock Insert [OM.PC] Routine 04/11/20 12:00 TROPONIN I [CHEM] Stat
[2020-04-11] MEDS ORDERED: Magnesium Sulfate/Water 2 GM/50 ML BAG IV ONE (11:02)
[2020-04-11] MEDS ORDERED: Sodium Chloride 0.9% 10 ML Syringe FLUSH PRN (11:02)
[2020-04-11] MEDS ORDERED: Spironolactone 25 MG Tab PO ONE (11:08)
== END 2020-04-11 13:45 | disposition home or self-care (01) ==
LOC: JP.ED 08:59
DX: E87.1 Hypo-osmolality and hyponatremia (principal); E83.42 Hypomagnesemia; E86.0 Dehydration; R79.89 Other specified abnormal findings of blood chemistry; I48.91 Unspecified atrial fibrillation; I11.0 Hypertensive heart disease with heart failure; I50.9 Heart failure, unspecified; E78.00 Pure hypercholesterolemia, unspecified; I25.2 Old myocardial infarction; E11.40 Type 2 diabetes mellitus with diabetic neuropathy, unspecified; E66.9 Obesity, unspecified; Z88.5 Allergy status to narcotic agent; Z91.048 Other nonmedicinal substance allergy status; Z79.4 Long term (current) use of insulin; Z79.01 Long term (current) use of anticoagulants; Z79.82 Long term (current) use of aspirin; Z79.899 Other long term (current) drug therapy; Z87.891 Personal history of nicotine dependence
CPT/HCPCS: 36415; 80048; 82140; 83735; 83880; 84484; 85027; 86140; 96365; 96366; 99284; A9270; J3475